=== PATIENT | female | born 1970 | race Caucasian/White ===

== ENCOUNTER 2017-06-26 14:25 | Inpatient (IN) | payer BC, MEDICARE ==
[2017-06-26] MEDS ORDERED: NS 0.9% 1000 ML* 1,000 ML IV ONE (15:16)
[2017-06-26] MEDS ORDERED: Aspirin Low Dose CHEW TAB* 81 MG PO ONE (15:16)
[2017-06-26] MEDS ORDERED: Ondansetron INJ* 2 MG/ML VIAL IV ONE (15:16)
--- NOTE | 2017-06-26 16:39 | RAD ---
Indication: Chest pain. 2 views of the chest including dual energy PA views demonstrate no mediastinal shift. Heart is of normal size and configuration. Lung carlton demonstrate no pleural fluid, pneumonia or pneumothorax. IMPRESSION: No active cardiopulmonary disease is noted.
[2017-06-26 17:57] LABS: Hematocrit 39 % (35-47); Hemoglobin 13.1 g/dl (12.0-16.0); Mean Corpuscular HGB Conc 34 g/dl (31-36); Mean Corpuscular Hemoglobin 29 pg (27-31); Mean Corpuscular Volume 85 fL (80-97); Mean Platelet Volume 9 um3 (7.4-10.4); Red Blood Count 4.56 10^6/ul (4.0-5.4); Red Cell Distribution Width 15 % (10.5-15); White Blood Count 15.9 10^3/ul (3.5-10.8)
[2017-06-26 18:10] LABS: Albumin 3.7 g/dL (3.2-5.2); BUN/Creatinine Ratio 10.2 (8-20); Calcium 9.4 mg/dL (8.6-10.3); EGFR African American 40.3 (>60); EGFR Non-African American 31.4 (>60); Globulin 4.8 g/dL (2-4); Magnesium 1.3 mg/dL (1.9-2.7); Potassium 3.1 mmol/L (3.5-5.0); Total Bilirubin 0.6 mg/dL (0.2-1.0); Total Protein 8.5 g/dL (6.4-8.9)
[2017-06-26 18:11] LABS: Troponin I 0.02 ng/mL (<0.04)
[2017-06-26 18:31] LABS: TSH (Thyroid Stimulating Horm) 0.99 mcIU/mL (0.34-5.60)
[2017-06-26] MEDS ORDERED: Magnesium Sulfate 1 GM IV* 1 GM/100 ML BAG IV ONE (18:46)
[2017-06-26] MEDS ORDERED: Potassium Chloride LIQUID* 20 MEQ PACKET PO ONE (18:46)
--- NOTE | 2017-06-26 21:38 | ED ---
Madelaine Hyde Thomas, scribed for Ridge Gurrola on 06/26/17 at 1912 . Progress - Progress Note Progress Note: The patient is a sign out from Dr. Black at shift change pending a second troponin and awaiting disposition. The second troponin is 0.02. I consulted with Dr. Mcdowell, hospitalist, who will admit the patient to [facility]. Re-Evaluation - Re-Evaluation First Eval Re-Evaluation Time: 21:09 Change: Unchanged Comment: She is still complaining of chest pain. Course/Dx - Diagnoses Provider Diagnoses: Chest pain, rule out PA, Hyponatremia, Leukocytosis, Hypokalemia - Provider Notifications Discussed Care Of Patient With: Olena Mcdowell Time Discussed With Above Provider: 21:10 Instructed by Provider To: Other - I consulted with Dr. Mcdowell, hospitalist, who will admit the patient to [facility]. The documentation as recorded by the Madelaine jha Thomas accurately reflects the service I personally performed and the decisions made by , Ridge Gurrola.
[2017-06-26 21:57] LABS: C Reactive Protein 4.89 mg/L (< 5.00)
[2017-06-26] MEDS ORDERED: Ondansetron INJ* 2 MG/ML VIAL IV PRN (21:59)
[2017-06-26] MEDS ORDERED: PROCHLORPERAZINE INJ 5 MG/ML 2 ML VIAL IV PRN (21:59)
[2017-06-26] MEDS ORDERED: Magnesium Sulfate 2 GM IV* 2 GM/50 ML BAG IVPB ONE (22:02)
[2017-06-26] MEDS ORDERED: ALPRAZolam TAB* 0.5 MG PO PRN (22:03)
[2017-06-26] MEDS ORDERED: busPIRone TAB* 5 MG PO PRN (22:03)
[2017-06-26] MEDS ORDERED: Zolpidem TAB* 10 MG PO PRN (22:04)
[2017-06-26] MEDS ORDERED: KCL 20 MEQ/100 ML IVPREMIX* 20 MEQ/100 ML BAG IV SCH (23:00)
[2017-06-26] MEDS: NS 0.9% 1000 ML* 1,000 ML IV SCH (23:34)
[2017-06-26] MEDS: Heparin VIAL(*) 5000 UNITS/ML VIAL (FIVE THOUSAND) SUBCUT SCH (23:38)
[2017-06-26] MEDS: HYDROmorphone INJ* 2 MG/ML CARPUJECT SYRINGE IV SLOW PU PRN (23:40)
--- NOTE | 2017-06-27 02:31 | HP ---
CC: Joshua Silver MD* HISTORY AND PHYSICAL: DATE OF ADMISSION: 06/26/17 PRIMARY CARE PROVIDER: Joshua Silver MD CHIEF COMPLAINT: Chest pain. HISTORY OF PRESENT ILLNESS: Ms. Key is a 46-year-old female with history of Crohn's disease, status post total colectomy and ileostomy placement, chronic pain, anxiety/depression and a history of DVT/PE, who presented to the emergency room, complains of chest pain. The patient states that beginning a couple of days ago, she felt like she was developing a chest cold. She developed tightness in her chest as well as shortness of breath. She then began to eat poorly due to the onset of abdominal pain, nausea, and vomiting. The patient has not been able to keep anything down per her report. The patient states that she feels like she is dehydrated. She states that in addition to these complaints when she stood up, she felt dizzy. She does complain of slight cough and mucus production, but otherwise no focal complaints. She states her ileostomy is working normally. PAST MEDICAL HISTORY: 1. Crohn's disease, status post colectomy with ileostomy. 2. Chronic low back pain. 3. Anxiety. 4. History of DVT/PE. PAST SURGICAL HISTORY: 1. Seven abdominal surgeries for Crohn's disease culminating in a total colectomy with ileostomy creation. 2. Left oophorectomy. ALLERGIES: 1. TYLENOL. 2. BENZOCAINE. 3. FLEXERIL. 4. IODINATED CONTRAST MEDIUM. 5. MORPHINE. 6. PENICILLIN. 7. FENTANYL. 8. PATCHES. MEDICATIONS: 1. Methadone 10 mg/mL, 1 mL p.o. t.i.d. 2. Ambien 12.5 mg p.o. q.h.s. p.r.n. insomnia. 3. Prozac 40 mg p.o. daily. 4. Xanax 0.5 mg p.o. q.6 hours p.r.n. anxiety. 5. BuSpar 7.5 mg p.o. b.i.d. p.r.n. anxiety. FAMILY HISTORY: Mom is living, she is 64. She has a history of hyperlipidemia. Dad is living, he is 70, his health is unknown as the patient does not speak with him. SOCIAL HISTORY: The patient is an active smoker of approximately half pack per day. She has smoked off and on since the age of 17. She denies any alcohol use. She is disabled. She is . She has 1 child. Her , Satya is her healthcare proxy. REVIEW OF SYSTEMS: The patient denies any fevers or chills. She states her appetite has been poor over the last couple of days. She admits chest pain as above. No lower extremity edema. Mild cough as above. Shortness of breath as above. She admits to nausea, vomiting, and abdominal pain as above. No hematochezia. Her stool is always liquidy and it is in its usual consistency at this time. No hematuria. No dysuria. No focal weakness or sensory loss. No sudden changes in vision. No dysphagia. No joint pains or muscle pains out of the ordinary. No rashes. She does admit to anxiety and depression. PHYSICAL EXAMINATION GENERAL: The patient is a well-developed, very thin, middle-aged female, lying in the bed, in no acute distress. VITAL SIGNS: Blood pressure 107/88, pulse 81, respirations 18, temp 99.2, O2 sat 97% on room air. HEENT: Pupils are equal, they are round, they react to light. Extraocular muscles are intact. Oropharynx is clear. Oral mucosa is moist. There is no submandibular, cervical, or supraclavicular adenopathy. NECK: Thyroid is not enlarged. No thyroid nodules are noted. PULMONARY: Lungs are clear to auscultation bilaterally. CARDIAC: Normal S1, S2. Regular rate and rhythm. I do not appreciate any murmurs. There is no lower extremity edema. ABDOMEN: Bowel sounds are present. Abdomen is flat. There is an ileostomy on the right side of the abdomen that is filled with liquid stool and air. The patient begins to flinch to palpation just as I start to touch her abdomen and perhaps even before I touch her abdomen. MUSCULOSKELETAL: There is no cyanosis or clubbing of the digits, full active range of motion of all 4 extremities. SKIN: Warm and dry. There are no rashes. NEURO: Cranial nerves II through XII are grossly intact. Sensation is intact to light touch throughout. Strength is 5/5 and symmetric in both upper and lower extremities bilaterally. PSYCH: The patient is alert. She is oriented x3. Affect appears appropriate. DIAGNOSTIC STUDIES/LAB DATA: Sodium 128, potassium 3.1, chloride 95, CO2 21, BUN 18, creatinine 1.76. Glucose 100, lactic acid 1.0, calcium 9.4, magnesium 1.3. Bilirubin 0.6, AST 25, ALT 39, alk phos 132. CPK 14, CK-MB 2.5, troponin 0.02 x2. CRP 4.89. BNP 37. Albumin 3.7, TSH 0.99. WBC 15.9, hemoglobin 13.1, hematocrit 39, platelets 532. Procalcitonin 0.2. EKG reveals normal sinus rhythm without any acute ST-T wave abnormalities, though she does appear to have a slightly prolonged QT interval. Chest x-ray, no acute pulmonary process. ASSESSMENT AND PLAN: Ms. Key is a 46-year-old female with history of Crohn' s disease, status post total colectomy and ileostomy creation, chronic pain, on chronic methadone and anxiety, who presents to the emergency room with complaints of chest pain, shortness of breath, abdominal pain, nausea, and vomiting. 1. Chest pain. I do not believe this is cardiac in nature. The patient has been having this pain almost continuously over the last 2 days. Her troponins are negative. I do not think she needs any further cardiac workup at this time. Of note, she did have cardiac catheterization in 2003 where "normal coronary arteries were identified." 2. Abdominal pain, nausea, and vomiting. The etiology of this is not clear. The patient has been admitted multiple times in the past for complaints of abdominal pain. Sometimes, she has been found to have partial obstruction, other times no clear cause has been identified. The patient will be observed overnight given her leukocytosis and elevated platelet count that may be reactive and what appears to be mild dehydration. The patient will receive normal saline at 100 mL per hour overnight. She has received potassium supplementation in the ER and a small amount of magnesium supplementation. I will give her additional IV magnesium. The patient's abdominal pain will be monitored. I will continue on her usual dose of methadone and we will add IV Dilaudid p.r.n. She will have Compazine available for nausea. I am going to hold off on Zofran given her prolonged QR interval. The patient will be on a clear liquid diet, which hopefully can be advanced tomorrow morning. I will go ahead and also send off an influenza swab and obtain abdominal x-rays to rule out partial obstruction. 2. Anxiety/depression. The patient will be maintained on her usual doses of Xanax and Prozac and BuSpar. 3. DVT prophylaxis. According to the Adult Thrombosis Prophylaxis Risk Factor Assessment Guide, the patient has a total risk factor score of 4, making her high risk. She will be placed on heparin 5000 units subcutaneous q.8 hours. 4. Code status is full and again the patient indicates that her is her healthcare proxy. [id number]/[facility] #: [id number] WILLIAM
[2017-06-27 02:42] LABS: Urine Bacteria 2+ (Absent); Urine Bilirubin Negative (Negative); Urine Glucose Negative (Negative); Urine Nitrite Negative (Negative)
[2017-06-27] MEDS: HYDROmorphone INJ* 2 MG/ML CARPUJECT SYRINGE IV SLOW PU PRN ×5 (03:28→22:06)
[2017-06-27] MEDS: Heparin VIAL(*) 5000 UNITS/ML VIAL (FIVE THOUSAND) SUBCUT SCH ×3 (06:07→20:43)
[2017-06-27 06:41] LABS: Hematocrit 35 % (35-47); Hemoglobin 11.9 g/dl (12.0-16.0); Mean Corpuscular HGB Conc 34 g/dl (31-36); Mean Corpuscular Hemoglobin 29 pg (27-31); Mean Corpuscular Volume 86 fL (80-97); Mean Platelet Volume 8 um3 (7.4-10.4); Red Cell Distribution Width 15 % (10.5-15); White Blood Count 9.1 10^3/ul (3.5-10.8)
[2017-06-27 07:25] LABS: BUN/Creatinine Ratio 11.3 (8-20); Calcium 8.6 mg/dL (8.6-10.3); EGFR African American 51.7 (>60); EGFR Non-African American 40.2 (>60); Potassium 3.4 mmol/L (3.5-5.0)
--- NOTE | 2017-06-27 07:43 | RAD ---
INDICATION: Partial small bowel obstruction. COMPARISON: Comparison is made with a prior exam from December 29, 2015. TECHNIQUE: Supine and upright views of the abdomen were obtained. FINDINGS: The small bowel and colon appear nondistended. No free intraperitoneal air is seen. There are several surgical clips which project in the left lower quadrant and overlying the pelvis. IMPRESSION: NO EVIDENCE FOR OBSTRUCTION.
[2017-06-27] MEDS: Methadone TAB* 10 MG PO SCH ×3 (08:30→20:42)
[2017-06-27] MEDS: FLUoxetine CAP* 20 MG PO SCH (08:31)
[2017-06-27] MEDS: NS 0.9% 1000 ML* 1,000 ML IV SCH (15:12)
--- NOTE | 2017-06-27 16:28 | RAD ---
Indication: Weight loss, Crohn's disease. CT of the chest, abdomen and pelvis was performed without oral or IV contrast administration. Coronal and sagittal reconstructed images were obtained. Inferior thyroid lobes are unremarkable. No mediastinal or hilar adenopathy is noted. Heart is of normal size without evidence of pericardial effusion. The trachea and major bronchi appear patent. Lung carlton demonstrate no pleural fluid, pneumonia or pneumothorax. No pulmonary nodules are identified. The axilla is grossly unremarkable. The bony structures are grossly unremarkable with some endplate sclerosis. CT of the abdomen and pelvis demonstrates the liver to be normal in size. No focal lesions or intrahepatic duct dilatation is noted. The patient appears to have a transverse colostomy. Pancreas demonstrates no mass or pancreatic duct dilatation. The gallbladder is partially contracted. The spleen is normal in size. Calcified granulomas are noted. No adrenal lesions are noted. The kidneys demonstrate no hydronephrosis. No retroperitoneal lymphadenopathy is noted. CT of the pelvis demonstrates question of right adnexal cyst. Urinary bladder is collapsed. No hernias are noted. No free fluid is identified. IMPRESSION: 1. Transverse colon colostomy. 2. No abnormal masses or fluid collections are otherwise noted. There may be a right ovarian cyst noted measuring up to 4 cm. Follow-up exam is suggested. 3. No pulmonary lesions are identified.
--- NOTE | 2017-06-27 17:51 | PN ---
Subjective Date of Service: 06/27/17 Interval History: still with crampy abdominal pain, poor appetite for both lunch and dinner today (though ate some pasta). No vomiting. Attests to 60lb weight loss (unintentional ) over last year. CT C/A/P Objective Active Medications: Alprazolam (Xanax Tab*) 0.5 mg PO Q6H PRN PRN Reason: ANXIETY Buspirone HCl (Buspar Tab*) 7.5 mg PO BID PRN PRN Reason: ANXIETY Fluoxetine HCl (Prozac Cap*) 40 mg PO DAILY [facility] Last Admin: 06/27/17 08:31 Dose: 40 mg Heparin Sodium (Porcine) (Heparin Vial(*)) 5,000 units SUBCUT Q8HR [facility] Last Admin: 06/27/17 15:12 Dose: 5,000 units Hydromorphone HCl (Dilaudid Inj*) 0.5 mg IV SLOW PU Q4H PRN PRN Reason: PAIN Last Admin: 06/27/17 17:14 Dose: 0.5 mg Sodium Chloride (Ns 0.9% 1000 Ml*) 1,000 mls @ 100 mls/hr IV PER RATE [facility] Last Admin: 06/27/17 15:12 Dose: 100 mls/hr Methadone HCl (Dolophine Tab*) 10 mg PO TID [facility] Last Admin: 06/27/17 15:11 Dose: 10 mg Prochlorperazine Edisylate (Compazine Inj*) 5 mg IV Q6H PRN PRN Reason: NAUSEA/VOMITING Zolpidem Tartrate (Ambien Tab*) 10 mg PO BEDTIME PRN PRN Reason: INSOMNIA Vital Signs 06/27/17 06/27/17 17:11 17:14 Respiratory 18 16 Rate Appearance: malnourished appearing, NAD Eyes: No Scleral Icterus, PERRLA Ears/Nose/Mouth/Throat: Clear Oropharnyx, - - poor dentition Neck: NL Appearance and Movements; NL JVP Respiratory: Clear to Auscultation, Clear to Percussion Cardiovascular: NL Sounds; No Murmurs; No JVD, RRR, No Edema Abdominal: - - slight diffuse tenderness; ostomy with green liquid stool + gas. No peritoneal signs. soft Lymphatic: No Cervical Adenopathy Extremities: No Edema, No Clubbing, Cyanosis Skin: No Rash or Ulcers Neurological: Alert and Oriented x 3, NL Sensation, NL Muscle Strength and Tone Nutrition: Taking PO's Result Diagrams: 06/27/17 06:06 06/27/17 06:06 Additional Lab and Data: Laboratory Results - last 24 hr 06/26/17 06/26/17 06/26/17 17:25 17:25 23:57 WBC RBC Hgb Hct MCV MCH MCHC RDW Plt Count MPV Sodium 128 L Potassium 3.1 L Chloride 95 L Carbon Dioxide 21 L Anion Gap 12 H BUN 18 Creatinine 1.76 H Est GFR ( Amer) 40.3 Est GFR (Non-Af Amer) 31.4 BUN/Creatinine Ratio 10.2 Glucose 100 Calcium 9.4 Magnesium 1.3 L Total Bilirubin 0.60 AST 25 ALT 39 Alkaline Phosphatase 132 H Total Creatine Kinase 14 CK-MB (CK-2) 2.5 Troponin I 0.02 C-Reactive Protein 4.89 Total Protein 8.5 Albumin 3.7 Globulin 4.8 H Albumin/Globulin Ratio 0.8 L Procalcitonin 0.2 TSH 0.99 Urine Color Urine Appearance Urine pH Ur Specific [place] Urine Protein Urine Ketones Urine Blood Urine Nitrate Urine Bilirubin Urine Urobilinogen Ur Leukocyte Esterase Urine WBC (Auto) Urine RBC (Auto) Ur Squamous Epith Cells Urine Bacteria Hyaline Casts Urine Glucose Influenza A (Rapid) Negative Influenza B (Rapid) Negative 06/27/17 06/27/17 06/27/17 02:15 06:06 06:06 WBC 9.1 RBC 4.10 Hgb 11.9 L Hct 35 MCV 86 MCH 29 MCHC 34 RDW 15 Plt Count 367 MPV 8 Sodium 125 L Potassium 3.4 L Chloride 98 L Carbon Dioxide 19 L Anion Gap 8 BUN 16 Creatinine 1.42 H Est GFR ( Amer) 51.7 Est GFR (Non-Af Amer) 40.2 BUN/Creatinine Ratio 11.3 Glucose 133 H Calcium 8.6 Magnesium Total Bilirubin AST ALT Alkaline Phosphatase Total Creatine Kinase CK-MB (CK-2) Troponin I C-Reactive Protein Total Protein Albumin Globulin Albumin/Globulin Ratio Procalcitonin TSH Urine Color Yellow Urine Appearance Cloudy Urine pH 6.0 Ur Specific [place] 1.006 L Urine Protein Negative Urine Ketones Negative Urine Blood 1+ H Urine Nitrate Negative Urine Bilirubin Negative Urine Urobilinogen Negative Ur Leukocyte Esterase 3+ H Urine WBC (Auto) 3+(>20/hpf) H Urine RBC (Auto) 2+(6-10/hpf) H Ur Squamous Epith Cells Present H Urine Bacteria 2+ H Hyaline Casts Present H Urine Glucose Negative Influenza A (Rapid) Influenza B (Rapid) Microbiology and Other Data: Microbiology 06/26/17 17:25 Blood Venous Aerobic Blood Culture - Preliminary No Growth Day 1 06/26/17 17:25 Blood Venous Anaerobic Blood Culture - Preliminary No Growth Day 1 06/26/17 23:45 Nasal Nasal Screen MRSA (PCR)(SERGEY) - Final Mrsa Negative 06/26/17 23:45 Nasal Influenza Types A,B Antigen (SERGEY) - Final Specimen received for Influenza A/B Molecular testing Assess/Plan/Problems-Billing Assessment: 46 yo female chron's s/p 7 surgeries (total colectomy, ileostomy); chronic pain , anxiety, depression, and 60lb unintentional weight loss over 1 year p/w abdominal pain, dizziness, chest pressure x 2 days. ACS ruled out. Hyponatremic and improving CHASTITY. - Patient Problems (1) Weight loss Current Visit: Yes Status: Acute Comment: 60 lb unintentional in [address] chest/abdomen/pelvis w/o e/o masses or lymphadenopathy. w/o contrast given CHASTITY. f/u with Dr. Álvarez GI as outpatient for colo or flex sig. ?PET to evaluate for malignancy current smoker (1/2 pack average over ~15 years (off on since age 17) (2) Crohns disease of small intestine Current Visit: No Status: Chronic Priority: Low Onset Date: 05/15/14 Code(s): K50.00 - CROHN'S DISEASE OF SMALL INTESTINE WITHOUT COMPLICATIONS SNOMED Code(s): 71509283 Comment: not clearly an acute flair. (3) Abdominal pain Current Visit: No Status: Acute Priority: High Code(s): R10.9 - UNSPECIFIED ABDOMINAL PAIN SNOMED Code(s): 75366104 Comment: partial sbo (no e/o on imaging) vs ovarian cyst vs chron's flare. CT c/a/p w/o masses or fluid collections add lipase (4) Acute kidney failure Current Visit: No Status: Acute Comment: in setting of N/V, dehydration improved with IVF. GLOVE BRUSHER 1.76-> 1.42 (baseline ~1.1) (5) Chronic abdominal pain Current Visit: No Status: Acute Code(s): R10.9 - UNSPECIFIED ABDOMINAL PAIN ; G89.29 - OTHER CHRONIC PAIN SNOMED Code(s): 968951228 Comment: continue methadone 10mg TID along with dilaudid 0.5mg q4 had beeon on 90 back in 2016. (6) Leukocytosis Current Visit: No Status: Acute Code(s): D72.829 - ELEVATED WHITE BLOOD CELL COUNT, UNSPECIFIED SNOMED Code(s): 858296131 Comment: improved (7) Right ovarian cyst Current Visit: Yes Status: Acute Code(s): N83.201 - UNSPECIFIED OVARIAN CYST , RIGHT SIDE SNOMED Code(s): 90347035 Comment: seemingly stable size (8) Hyponatremia Current Visit: Yes Status: Acute Code(s): E87.1 - HYPO-OSMOLALITY AND HYPONATREMIA SNOMED Code(s): 26257815 Comment: 128-> 125 with IVF. hypovolemic on exam BMP daily. Status and Disposition: medicine inpatient. Attending: Rao Valerio
[2017-06-28] MEDS: HYDROmorphone INJ* 2 MG/ML CARPUJECT SYRINGE IV SLOW PU PRN ×4 (03:22→20:28)
[2017-06-28] MEDS: NS 0.9% 1000 ML* 1,000 ML IV SCH (03:58)
[2017-06-28] MEDS: Heparin VIAL(*) 5000 UNITS/ML VIAL (FIVE THOUSAND) SUBCUT SCH ×3 (07:12→21:58)
--- NOTE | 2017-06-28 08:23 | ED ---
Arash Hyde Angela, scribed for Bryant Black MD on 06/26/17 at 1509 . HPI Chest Pain - HPI Summary HPI Summary: This pt is a 46 y/o female presenting to [facility] c/o mid sternal chest pain, SOB, ,cough for a couple of days. Pt reports her pain is non-radiating and is described as pressure. Her chest pain is rated 8/10 in severity. She states she can't get enough air in and has to sit down because she feels like passing out. Pt endorses a fever (max of 100F), dehydration, and vomiting. She also notes back pain secondary to cough. PMHx: pneumonia, crohn's disease. She states that all her symptoms are aggravating her Crohn's. Pt's GI doctor is Dr. Álvarez. She denies any recent surgeries. - History of Current Complaint Chief Complaint: EDChestPainROMI Time Seen by Provider: 06/26/17 15:05 Hx Obtained From: Patient Onset/Duration: Started Days Ago, Still Present Timing: Lasting Days Pain Intensity: 6 Pain Scale Used: 0-10 Numeric Chest Pain Location: Mid Sternal Chest Pain Radiates: No Character: Pressure/Squeezing Aggravating Factor(s): Nothing Alleviating Factor(s): Nothing Associated Signs and Symptoms: Positive: Chest Pain, Shortness of Breath, Cough , Vomiting, Other: - dehydration - Additional Pertinent History Primary Care Physician: [id number] - Allergy/Home Medications Allergies/Adverse Reactions: Allergies Allergy/AdvReac Type Severity Reaction Status Date / Time Acetaminophen Allergy Severe Airway Verified 09/13/14 03:37 Obstruction Benzocaine Allergy Severe Anaphylatic Verified 09/13/14 03:37 Shock Cyclobenzaprine Allergy Intermediate Rash Verified 09/13/14 03:37 [From Flexeril] Iodinated Contrast Media Allergy Intermediate Rash Verified 09/13/14 03:37 [CONTRAST DYE] Morphine and Related Allergy Intermediate Rash Verified 09/13/14 03:37 Penicillins [PCN] Allergy Intermediate Hives Verified 09/13/14 03:37 Fentanyl Allergy Hives Verified 11/03/15 20:00 patches Allergy Intermediate Rash Uncoded 09/13/14 03:37 PMH/Surg Hx/FS Hx/Imm Hx Endocrine/Hematology History: Reports: Hx Blood Transfusions, Hx Anemia Cardiovascular History: Reports: Hx Deep Vein Thrombosis, Hx Embolism, Hx Hypotension, Other Cardiovascular Problems/Disorders - Pericarditis Respiratory History: Reports: Hx Pulmonary Embolism Comment Only: Other Respiratory Problems/Disorders - HX OF PE X2 GI History: Reports: Hx Crohn's Disease, Hx Obstructive Bowel, Hx Ileostomy - Ileostomy History: Reports: Hx Kidney Infection, Hx Kidney Stones Musculoskeletal History: Reports: Hx Back Problems - sciatic nerve issues Psychiatric History: Reports: Hx Anxiety - Controlled w meds, Hx Depression - "long time ago", Hx Suicide Attempt - once - Cancer History Hx Chemotherapy: No - Surgical History Surgery Procedure, Year, and Place: LEFT OOPHORECTOMY 2006. CHOLECYSTECTOMY. APPENDECTOMY. TOTAL COLECTOMY with LUQ ILEOSTOMY 2001. CROHNS SURGERY- multiple abd surgeries (prior to 2001) Hx Anesthesia Reactions: No - Immunization History Date of Tetanus Vaccine: Unknown Infectious Disease History: No Infectious Disease History: Reports: Hx Clostridium Difficile, Hx of Known/ Suspected MRSA Denies: Hx Hepatitis, Hx Human Immunodeficiency Virus (HIV), Traveled Outside the [place] in Last 30 Days - Family History Known Family History: Positive: Cardiac Disease - maternal grandmother, Diabetes - father, uncle, maternal grandmother , Other - Grandparents: [place] - Social History Alcohol Use: None Hx Substance Use: No Substance Use Type: Reports: None Hx Tobacco Use: Yes Smoking Status (MU): Light Every Day Tobacco Smoker Type: Cigarettes Amount Used/How Often: 1/2ppd Review of Systems Positive: Fever, Other - dehydration. Negative: Chills Eyes: Negative Positive: Chest Pain Positive: Shortness Of Breath, Cough Positive: Vomiting. Negative: Abdominal Pain Genitourinary: Negative Positive: Other - back pain secondary to cough Skin: Negative Neurological: Other - feel like passing out All Other Systems Reviewed And Are Negative: Yes Physical Exam - Summary Physical Exam Summary: VITAL SIGNS: Reviewed. GENERAL: Patient is a cachectic female. Patient is not in any acute respiratory distress. HEAD AND FACE: No signs of trauma. No ecchymosis, hematomas or skull depressions. No sinus tenderness. EYES: PERRLA, EOMI x 2, No injected conjunctiva, no nystagmus. EARS: Hearing grossly intact. Ear canals and tympanic membranes are within normal limits. MOUTH: Oropharynx within normal limits. NECK: Supple, trachea is midline, no adenopathy, no JVD, no carotid bruit, no c- spine tenderness, neck with full ROM. CHEST: There is reproducible chest pain. LUNGS: Clear to auscultation bilaterally. No wheezing or crackles. CVS: Regular rate and rhythm, S1 and S2 present, no murmurs or gallops appreciated. ABDOMEN: Soft, non-tender. No signs of distention. No rebound no guarding, and no masses palpated. Bowel sounds are normal. Pt has a colostomy bag in lower abd. EXTREMITIES: FROM in all major joints, no edema, no cyanosis or clubbing. NEURO: Alert and oriented x 3. No acute neurological deficits. Speech is normal and follows commands. SKIN: Dry and warm Triage Information Reviewed: Yes Vital Signs On Initial Exam: Initial Vitals Temp Pulse Resp BP Pulse Ox 99.2 F 113 20 106/78 100 06/26/17 14:26 06/26/17 14:26 06/26/17 14:26 06/26/17 14:26 06/26/17 14:26 Vital Signs Reviewed: Yes - [place] Coma Scale Coma Scale Total: 15 Diagnostics - Vital Signs Vital Signs Temp Pulse Resp BP Pulse Ox 06/26/17 15:00 22 06/26/17 14:54 96 17 101/72 97 06/26/17 14:52 96 97 06/26/17 14:26 99.2 F 113 20 106/78 100 - Laboratory Lab Results: Lab Results 06/26/17 06/26/17 06/26/17 Range/Units 17:25 17:25 17:25 WBC 15.9 H (3.5-10.8) 10^3/ul RBC 4.56 (4.0-5.4) 10^6/ul Hgb 13.1 (12.0-16.0) g/dl Hct 39 (35-47) % MCV 85 (80-97) fL MCH 29 (27-31) pg MCHC 34 (31-36) g/dl RDW 15 (10.5-15) % Plt Count 532 H (150-450) 10^3/ul MPV 9 (7.4-10.4) um3 Neut % (Auto) 83.2 H (38-83) % Lymph % (Auto) 9.0 L (25-47) % [place] % (Auto) 5.3 (1-9) % Eos % (Auto) 2.1 (0-6) % Baso % (Auto) 0.4 (0-2) % Absolute Neuts (auto) 13.2 H (1.5-7.7) 10^3/ul Absolute Lymphs (auto) 1.4 (1.0-4.8) 10^3/ul Absolute Monos (auto) 0.8 (0-0.8) 10^3/ul Absolute Eos (auto) 0.3 (0-0.6) 10^3/ul Absolute Basos (auto) 0.1 (0-0.2) 10^3/ul Absolute Nucleated RBC 0 10^3/ul Nucleated RBC % 0 Sodium 128 L (133-145) mmol/L Potassium 3.1 L (3.5-5.0) mmol/L Chloride 95 L (101-111) mmol/L Carbon Dioxide 21 L (22-32) mmol/L Anion Gap 12 H (2-11) mmol/L BUN 18 (6-24) mg/dL Creatinine 1.76 H (0.51-0.95) mg/dL Est GFR ( Amer) 40.3 (>60) Est GFR (Non-Af Amer) 31.4 (>60) BUN/Creatinine Ratio 10.2 (8-20) Glucose 100 (70-100) mg/dL Lactic Acid (0.5-2.0) mmol/L Calcium 9.4 (8.6-10.3) mg/dL Magnesium 1.3 L (1.9-2.7) mg/dL Total Bilirubin 0.60 (0.2-1.0) mg/dL AST 25 (13-39) U/L ALT 39 (7-52) U/L Alkaline Phosphatase 132 H (34-104) U/L Total Creatine Kinase 14 (10-223) U/L CK-MB (CK-2) 2.5 (0.6-6.3) ng/mL Troponin I 0.02 (<0.04) ng/mL C-Reactive Protein 4.89 (< 5.00) mg/L B-Natriuretic Peptide 37 ( - 100) pg/mL Total Protein 8.5 (6.4-8.9) g/dL Albumin 3.7 (3.2-5.2) g/dL Globulin 4.8 H (2-4) g/dL Albumin/Globulin Ratio 0.8 L (1-3) Procalcitonin (<0.6) ng/mL TSH 0.99 (0.34-5.60) mcIU/mL Urine Color Urine Appearance Urine pH (5-9) Ur Specific [place] (1.010-1.030) Urine Protein (Negative) Urine Ketones (Negative) Urine Blood (Negative) Urine Nitrate (Negative) Urine Bilirubin (Negative) Urine Urobilinogen (Negative) Ur Leukocyte Esterase (Negative) Urine WBC (Auto) (Absent) Urine RBC (Auto) (Absent) Ur Squamous Epith Cells (Absent) Urine Bacteria (Absent) Hyaline Casts (Absent) Urine Glucose (Negative) Influenza A (Rapid) (Negative) Influenza B (Rapid) (Negative) 06/26/17 06/26/17 06/26/17 Range/Units 17:25 17:25 20:00 WBC (3.5-10.8) 10^3/ul RBC (4.0-5.4) 10^6/ul Hgb (12.0-16.0) g/dl Hct (35-47) % MCV (80-97) fL MCH (27-31) pg MCHC (31-36) g/dl RDW (10.5-15) % Plt Count (150-450) 10^3/ul MPV (7.4-10.4) um3 Neut % (Auto) (38-83) % Lymph % (Auto) (25-47) % [place] % (Auto) (1-9) % Eos % (Auto) (0-6) % Baso % (Auto) (0-2) % Absolute Neuts (auto) (1.5-7.7) 10^3/ul Absolute Lymphs (auto) (1.0-4.8) 10^3/ul Absolute Monos (auto) (0-0.8) 10^3/ul Absolute Eos (auto) (0-0.6) 10^3/ul Absolute Basos (auto) (0-0.2) 10^3/ul Absolute Nucleated RBC 10^3/ul Nucleated RBC % Sodium (133-145) mmol/L Potassium (3.5-5.0) mmol/L Chloride (101-111) mmol/L Carbon Dioxide (22-32) mmol/L Anion Gap (2-11) mmol/L BUN (6-24) mg/dL Creatinine (0.51-0.95) mg/dL Est GFR ( Amer) (>60) Est GFR (Non-Af Amer) (>60) BUN/Creatinine Ratio (8-20) Glucose (70-100) mg/dL Lactic Acid 1.0 (0.5-2.0) mmol/L Calcium (8.6-10.3) mg/dL Magnesium (1.9-2.7) mg/dL Total Bilirubin (0.2-1.0) mg/dL AST (13-39) U/L ALT (7-52) U/L Alkaline Phosphatase (34-104) U/L Total Creatine Kinase (10-223) U/L CK-MB (CK-2) (0.6-6.3) ng/mL Troponin I 0.02 (<0.04) ng/mL C-Reactive Protein (< 5.00) mg/L B-Natriuretic Peptide ( - 100) pg/mL Total Protein (6.4-8.9) g/dL Albumin (3.2-5.2) g/dL Globulin (2-4) g/dL Albumin/Globulin Ratio (1-3) Procalcitonin 0.2 (<0.6) ng/mL TSH (0.34-5.60) mcIU/mL Urine Color Urine Appearance Urine pH (5-9) Ur Specific [place] (1.010-1.030) Urine Protein (Negative) Urine Ketones (Negative) Urine Blood (Negative) Urine Nitrate (Negative) Urine Bilirubin (Negative) Urine Urobilinogen (Negative) Ur Leukocyte Esterase (Negative) Urine WBC (Auto) (Absent) Urine RBC (Auto) (Absent) Ur Squamous Epith Cells (Absent) Urine Bacteria (Absent) Hyaline Casts (Absent) Urine Glucose (Negative) Influenza A (Rapid) (Negative) Influenza B (Rapid) (Negative) 06/26/17 06/27/17 06/27/17 Range/Units 23:57 02:15 06:06 WBC 9.1 (3.5-10.8) 10^3/ul RBC 4.10 (4.0-5.4) 10^6/ul Hgb 11.9 L (12.0-16.0) g/dl Hct 35 (35-47) % MCV 86 (80-97) fL MCH 29 (27-31) pg MCHC 34 (31-36) g/dl RDW 15 (10.5-15) % Plt Count 367 (150-450) 10^3/ul MPV 8 (7.4-10.4) um3 Neut % (Auto) (38-83) % Lymph % (Auto) (25-47) % [place] % (Auto) (1-9) % Eos % (Auto) (0-6) % Baso % (Auto) (0-2) % Absolute Neuts (auto) (1.5-7.7) 10^3/ul Absolute Lymphs (auto) (1.0-4.8) 10^3/ul Absolute Monos (auto) (0-0.8) 10^3/ul Absolute Eos (auto) (0-0.6) 10^3/ul Absolute Basos (auto) (0-0.2) 10^3/ul Absolute Nucleated RBC 10^3/ul Nucleated RBC % Sodium (133-145) mmol/L Potassium (3.5-5.0) mmol/L Chloride (101-111) mmol/L Carbon Dioxide (22-32) mmol/L Anion Gap (2-11) mmol/L BUN (6-24) mg/dL Creatinine (0.51-0.95) mg/dL Est GFR ( Amer) (>60) Est GFR (Non-Af Amer) (>60) BUN/Creatinine Ratio (8-20) Glucose (70-100) mg/dL Lactic Acid (0.5-2.0) mmol/L Calcium (8.6-10.3) mg/dL Magnesium (1.9-2.7) mg/dL Total Bilirubin (0.2-1.0) mg/dL AST (13-39) U/L ALT (7-52) U/L Alkaline Phosphatase (34-104) U/L Total Creatine Kinase (10-223) U/L CK-MB (CK-2) (0.6-6.3) ng/mL Troponin I (<0.04) ng/mL C-Reactive Protein (< 5.00) mg/L B-Natriuretic Peptide ( - 100) pg/mL Total Protein (6.4-8.9) g/dL Albumin (3.2-5.2) g/dL Globulin (2-4) g/dL Albumin/Globulin Ratio (1-3) Procalcitonin (<0.6) ng/mL TSH (0.34-5.60) mcIU/mL Urine Color Yellow Urine Appearance Cloudy Urine pH 6.0 (5-9) Ur Specific [place] 1.006 L (1.010-1.030) Urine Protein Negative (Negative) Urine Ketones Negative (Negative) Urine Blood 1+ H (Negative) Urine Nitrate Negative (Negative) Urine Bilirubin Negative (Negative) Urine Urobilinogen Negative (Negative) Ur Leukocyte Esterase 3+ H (Negative) Urine WBC (Auto) 3+(>20/hpf) H (Absent) Urine RBC (Auto) 2+(6-10/hpf) H (Absent) Ur Squamous Epith Cells Present H (Absent) Urine Bacteria 2+ H (Absent) Hyaline Casts Present H (Absent) Urine Glucose Negative (Negative) Influenza A (Rapid) Negative (Negative) Influenza B (Rapid) Negative (Negative) 06/27/17 Range/Units 06:06 WBC (3.5-10.8) 10^3/ul RBC (4.0-5.4) 10^6/ul Hgb (12.0-16.0) g/dl Hct (35-47) % MCV (80-97) fL MCH (27-31) pg MCHC (31-36) g/dl RDW (10.5-15) % Plt Count (150-450) 10^3/ul MPV (7.4-10.4) um3 Neut % (Auto) (38-83) % Lymph % (Auto) (25-47) % [place] % (Auto) (1-9) % Eos % (Auto) (0-6) % Baso % (Auto) (0-2) % Absolute Neuts (auto) (1.5-7.7) 10^3/ul Absolute Lymphs (auto) (1.0-4.8) 10^3/ul Absolute Monos (auto) (0-0.8) 10^3/ul Absolute Eos (auto) (0-0.6) 10^3/ul Absolute Basos (auto) (0-0.2) 10^3/ul Absolute Nucleated RBC 10^3/ul Nucleated RBC % Sodium 125 L (133-145) mmol/L Potassium 3.4 L (3.5-5.0) mmol/L Chloride 98 L (101-111) mmol/L Carbon Dioxide 19 L (22-32) mmol/L Anion Gap 8 (2-11) mmol/L BUN 16 (6-24) mg/dL Creatinine 1.42 H (0.51-0.95) mg/dL Est GFR ( Amer) 51.7 (>60) Est GFR (Non-Af Amer) 40.2 (>60) BUN/Creatinine Ratio 11.3 (8-20) Glucose 133 H (70-100) mg/dL Lactic Acid (0.5-2.0) mmol/L Calcium 8.6 (8.6-10.3) mg/dL Magnesium (1.9-2.7) mg/dL Total Bilirubin (0.2-1.0) mg/dL AST (13-39) U/L ALT (7-52) U/L Alkaline Phosphatase (34-104) U/L Total Creatine Kinase (10-223) U/L CK-MB (CK-2) (0.6-6.3) ng/mL Troponin I (<0.04) ng/mL C-Reactive Protein (< 5.00) mg/L B-Natriuretic Peptide ( - 100) pg/mL Total Protein (6.4-8.9) g/dL Albumin (3.2-5.2) g/dL Globulin (2-4) g/dL Albumin/Globulin Ratio (1-3) Procalcitonin (<0.6) ng/mL TSH (0.34-5.60) mcIU/mL Urine Color Urine Appearance Urine pH (5-9) Ur Specific [place] (1.010-1.030) Urine Protein (Negative) Urine Ketones (Negative) Urine Blood (Negative) Urine Nitrate (Negative) Urine Bilirubin (Negative) Urine Urobilinogen (Negative) Ur Leukocyte Esterase (Negative) Urine WBC (Auto) (Absent) Urine RBC (Auto) (Absent) Ur Squamous Epith Cells (Absent) Urine Bacteria (Absent) Hyaline Casts (Absent) Urine Glucose (Negative) Influenza A (Rapid) (Negative) Influenza B (Rapid) (Negative) Result Diagrams: 06/27/17 06:06 06/27/17 06:06 Lab Statement: Any lab studies that have been ordered have been reviewed, and results considered in the medical decision making process. - Radiology Chest XR Xray Interpretation: No Acute Changes - IMPRESSION: No active cardiopulmonary disease is noted. ED physician has reviewed this radiology report and agrees. Radiology Interpretation Completed By: Radiologist - EKG 1554 Cardiac Rate: NL - 98 bpm EKG Rhythm: Sinus Rhythm EKG Interpretation: No ST elevation Chest Pain Course/Dx - Course Assessment/Plan: This pt is a 46 y/o female presenting to [facility] c/o mid sternal chest pain, SOB, ,cough for a couple of days. Pt reports her pain is non- radiating and is described as pressure. Her chest pain is rated 8/10 in severity. She states she can't get enough air in and has to sit down because she feels like passing out. Pt endorses a fever (max of 100F), dehydration, and vomiting. She also notes back pain secondary to cough. PMHx: pneumonia, crohn' s disease. She states that all her symptoms are aggravating her Crohn's. Pt's GI doctor is Dr. Álvarez. She denies any recent surgeries. Test results show WBC of 15.9, platelet count of 532, sodium of 128, potassium of 3.1, for which she was given potassium chloride, magnesium of 1.3, for which she was given magnesium sulfate. Creatinine of 1.76. Troponin is 0.02. In the ED course, the pt refused nitroglycerin and aspirin. Instead, she is requesting dilaudid. The pt is waiting for the second troponin. If negative, the pt can be discharged home. The pt will be signed out to Dr. Gurrola at shift change, pending disposition, awaiting second troponin. - Chest Pain Differential Diagnosis/HQI/PQRI: ACS, Angina, CHF, Chest Wall, GI Disease, Lower Respiratory Infection - Diagnoses Provider Diagnoses: Chest pain, rule out MS, Hyponatremia, Leukocytosis, Hypokalemia Discharge - Discharge Plan Condition: Stable Disposition: OTHER Discharge Disposition Comment: signed out to Dr. Gurrola, pending dispo, awaiting 2nd troponin The documentation as recorded by the Arash jha Angela accurately reflects the service I personally performed and the decisions made by me, Bryant Black MD.
[2017-06-28] MEDS: Methadone TAB* 10 MG PO SCH ×3 (09:56→20:18)
[2017-06-28] MEDS: FLUoxetine CAP* 20 MG PO SCH (09:56)
[2017-06-28 10:47] LABS: Hematocrit 36 % (35-47); Hemoglobin 12.2 g/dl (12.0-16.0); Mean Corpuscular HGB Conc 34 g/dl (31-36); Mean Corpuscular Hemoglobin 30 pg (27-31); Mean Corpuscular Volume 88 fL (80-97); Mean Platelet Volume 8 um3 (7.4-10.4); Red Blood Count 4.12 10^6/ul (4.0-5.4); Red Cell Distribution Width 15 % (10.5-15); White Blood Count 7.4 10^3/ul (3.5-10.8)
[2017-06-28 11:48] LABS: BUN/Creatinine Ratio 8.7 (8-20); Blood Urea Nitrogen 10 mg/dL (6-24); CO2 Carbon Dioxide 16 mmol/L (22-32); Calcium 8.3 mg/dL (8.6-10.3); Chloride 107 mmol/L (101-111); EGFR African American 65.9 (>60); EGFR Non-African American 51.3 (>60); Glucose 123 mg/dL (70-100); Lipase 43 U/L (11.0-82.0); Magnesium 1.7 mg/dL (1.9-2.7); Sodium 133 mmol/L (133-145)
[2017-06-28] MEDS ORDERED: Magnesium Sulfate 2 GM IV* 2 GM/50 ML BAG IVPB ONE (12:32)
[2017-06-28 12:35] LABS: Anion Gap 10 mmol/L (2-11)
[2017-06-28] MEDS ORDERED: Vancomycin(*) 1,000 MG in NS 0.9% 250 ML* 250 ML IVPB ONE (13:00)
[2017-06-28] MEDS ORDERED: Vancomycin per Pharmacy* NOTE FOLLOW UP PRN (13:12)
--- NOTE | 2017-06-28 18:32 | PN ---
Subjective Date of Service: 06/28/17 Interval History: Pt right lower quadrant and epigastric abdominal pain and po intake not really improved. Relates referral occasionally to right flank. "Crampy, hot poker". Last EGD ~6 years ago, found "burn" near distal esophagus. was on prilosec 6 months. Last chron's flare ~1 year ago, got prednisone. Denies blood per ostomy. Relates that the tapering down of her methadone from 100mg daily 04/01, 60mg 05/02 , 30mg 06/02 happened when she saw a new provider and was put on the "wrong list " of chronic back pain patients and that Dr. Silver had planned to increase back to usual 90mg next week visit. Was on 90 back December 2015 during last admission here for pSBO vs ileus. Relates eventually got methylene blue after tylenol + sedation meds caused angioedema need for intubation. Had severe sepsis 2/2 abdominal infection [facility] several years ago. Has had UTIs in past. Last menstrual period 2 weeks ago, usually relates right sided ovarian cyst pain to be ghassan-bleeding. s/p dennis, niraj Objective Active Medications: Alprazolam (Xanax Tab*) 0.5 mg PO Q6H PRN PRN Reason: ANXIETY Buspirone HCl (Buspar Tab*) 7.5 mg PO BID PRN PRN Reason: ANXIETY Fluoxetine HCl (Prozac Cap*) 40 mg PO DAILY [facility] Last Admin: 06/28/17 09:56 Dose: 40 mg Heparin Sodium (Porcine) (Heparin Vial(*)) 5,000 units SUBCUT Q8HR [facility] Last Admin: 06/28/17 13:42 Dose: 5,000 units Hydromorphone HCl (Dilaudid Inj*) 0.5 mg IV SLOW PU Q4H PRN PRN Reason: PAIN Last Admin: 06/28/17 14:05 Dose: 0.5 mg Vancomycin HCl 750 mg/ Sodium (Chloride) 250 mls @ 166.667 mls/hr IVPB Q12H [facility] Methadone HCl (Dolophine Tab*) 10 mg PO TID [facility] Last Admin: 06/28/17 13:36 Dose: 10 mg Pharmacy Consult (Vancomycin Per Pharmacy*) 1 note FOLLOW UP . PRN PRN Reason: PER PROTOCOL Pharmacy Profile Note (Vancomycin Trough Check) 1 note FOLLOW UP 1130 ONE Stop: 06/30/17 11:31 Prochlorperazine Edisylate (Compazine Inj*) 5 mg IV Q6H PRN PRN Reason: NAUSEA/VOMITING Zolpidem Tartrate (Ambien Tab*) 10 mg PO BEDTIME PRN PRN Reason: INSOMNIA Vital Signs 06/27/17 06/27/17 06/27/17 19:18 20:00 20:42 Temperature 98.1 F Pulse Rate 73 Respiratory 12 16 16 Rate Blood Pressure 113/69 (mmHg) O2 Sat by Pulse 100 Oximetry 06/27/17 06/27/17 06/28/17 22:06 23:16 03:22 Temperature 97.8 F Pulse Rate 73 Respiratory 16 16 16 Rate Blood Pressure 112/67 (mmHg) O2 Sat by Pulse 100 Oximetry 06/28/17 06/28/17 06/28/17 03:42 07:26 08:00 Temperature 97.9 F 98.2 F Pulse Rate 69 70 Respiratory 16 21 16 Rate Blood Pressure 115/64 124/65 (mmHg) O2 Sat by Pulse 100 100 Oximetry 06/28/17 06/28/17 06/28/17 09:54 09:56 11:04 Temperature 98.3 F Pulse Rate 77 Respiratory 16 16 20 Rate Blood Pressure 103/68 (mmHg) O2 Sat by Pulse 100 Oximetry 06/28/17 06/28/17 06/28/17 11:32 13:36 14:05 Temperature Pulse Rate Respiratory 18 16 14 Rate Blood Pressure (mmHg) O2 Sat by Pulse Oximetry 06/28/17 06/28/17 15:28 15:36 Temperature 98.1 F Pulse Rate 75 Respiratory 12 16 Rate Blood Pressure 103/60 (mmHg) O2 Sat by Pulse 100 Oximetry Oxygen Devices in Use Now: None Appearance: cachectic, no acute distress, occasionally anxious. Ears/Nose/Mouth/Throat: Mucous Membranes Moist, - - poor dentition Neck: NL Appearance and Movements; NL JVP Respiratory: Symmetrical Chest Expansion and Respiratory Effort, Clear to Auscultation Cardiovascular: NL Sounds; No Murmurs; No JVD, RRR Abdominal: - - RLQ (and to less extent epigastric) tenderness and some guarding. right CVA tenderness. ostomy with brown liquid stool and air. Extremities: No Edema, No Clubbing, Cyanosis Skin: No Rash or Ulcers Neurological: Alert and Oriented x 3, NL Muscle Strength and Tone Nutrition: Taking PO's Result Diagrams: 06/28/17 10:36 06/28/17 10:36 Additional Lab and Data: Laboratory Results - last 24 hr 06/28/17 06/28/17 10:36 10:36 WBC 7.4 RBC 4.12 Hgb 12.2 Hct 36 MCV 88 MCH 30 MCHC 34 RDW 15 Plt Count 288 MPV 8 Neut % (Auto) 82.1 Lymph % (Auto) 7.3 L [place] % (Auto) 5.6 Eos % (Auto) 4.0 Baso % (Auto) 1.0 Absolute Neuts (auto) 6.1 Absolute Lymphs (auto) 0.5 L Absolute Monos (auto) 0.4 Absolute Eos (auto) 0.3 Absolute Basos (auto) 0.1 Absolute Nucleated RBC 0.01 Nucleated RBC % 0.1 Sodium 133 D Potassium TNP Chloride 107 Carbon Dioxide 16 L Anion Gap 10 BUN 10 Creatinine 1.15 H Est GFR ( Amer) 65.9 Est GFR (Non-Af Amer) 51.3 BUN/Creatinine Ratio 8.7 Glucose 123 H Calcium 8.3 L Magnesium 1.7 L Lipase 43 Microbiology and Other Data: Microbiology 06/26/17 17:25 Blood Venous Aerobic Blood Culture - Preliminary No Growth Day 2 06/26/17 17:25 Blood Venous Anaerobic Blood Culture - Preliminary No Growth Day 2 06/26/17 17:25 Blood Venous Blood Culture - Final 06/27/17 02:15 Urine Urine Culture - Preliminary Citrobacter Freundii Corynebacterium Striatum 06/27/17 06:06 Blood Venous Aerobic Blood Culture - Preliminary No Growth Day 1 06/27/17 06:06 Blood Venous Anaerobic Blood Culture - Preliminary No Growth Day 1 06/26/17 23:45 Nasal Nasal Screen MRSA (PCR)(SERGEY) - Final Mrsa Negative 06/26/17 23:45 Nasal Influenza Types A,B Antigen (SERGEY) - Final Specimen received for Influenza A/B Molecular testing Assess/Plan/Problems-Billing Assessment: 46 yo female chron's s/p 7 surgeries (total colectomy, ileostomy); chronic abdominal pain on methadone (usually 90mg daily but tapered to 60 then 30mg last two months), anxiety, depression, and 60lb unintentional weight loss over 1 year p/w RLQ/epigastric abdominal pain, dizziness, chest pressure x 2 days. ACS ruled out. Hyponatremic(improved) and (resolved) CHASTITY. Cornybacterium Striatum(75-100K) UTI, Citrobacter 1-10K. Adding vancomycin till sensitivities. GI consult ([facility]) pending. - Patient Problems (1) Weight loss Current Visit: Yes Status: Acute Comment: 60 lb unintentional in [address] chest/abdomen/pelvis w/o e/o masses or lymphadenopathy. w/o contrast given CHASTITY. GI ([facility]) consulted 06/28. outpatient is Dr. Álvarez but has not seen in year) . question whether needs EGD/scope in her end ileostomy to help evaluate for malignancy given chronic chron's. if negative consider outpatient PET to evaluate for malignancy. current smoker (1/2 pack average over ~15 years (off on since age 17) (2) Abdominal pain Current Visit: No Status: Acute Priority: High Code(s): R10.9 - UNSPECIFIED ABDOMINAL PAIN SNOMED Code(s): 07520621 Comment: RLQ/epigastric and now radiating to right flank with e/o UTI and maybe worse baseline chron's pain given tapering of her usual 90mg methadone to 30mg. No e/o sbo or ileus on noncontrast CT C/A/P). Known right ovarian cyst that sometimes flares. No blood or diarrhea per ileostomy CT c/a/p w/o masses or fluid collections lipase wnl lactic acid 1.0 f/u GI recs. May need scopes for weight loss w/u but could also help rule out gastritis, ulcers, crohn's flare. (3) UTI (urinary tract infection) Current Visit: Yes Status: Acute Comment: plan as above. right CVA tenderness however of note procalcitonin was only 0.2 (4) Crohns disease of small intestine Current Visit: No Status: Chronic Priority: Low Onset Date: 05/15/14 Code(s): K50.00 - CROHN'S DISEASE OF SMALL INTESTINE WITHOUT COMPLICATIONS SNOMED Code(s): 02621511 Comment: not clearly an acute flair. not on any biologic,5ASA, or steroids as outpatient. (5) Acute kidney failure Current Visit: No Status: Acute Comment: in setting of N/V, dehydration resolved with IVF. [facility] 1.76-> 1.42-> 1.15 (baseline ~1.1) (6) Chronic abdominal pain Current Visit: No Status: Acute Code(s): R10.9 - UNSPECIFIED ABDOMINAL PAIN ; G89.29 - OTHER CHRONIC PAIN SNOMED Code(s): 180141766 Comment: continue methadone 10mg TID along with dilaudid 0.5mg q4 had bee on on 90 until tapered to 60 then [address] Silver reportedly to increase again next week (7) Leukocytosis Current Visit: No Status: Acute Code(s): D72.829 - ELEVATED WHITE BLOOD CELL COUNT, UNSPECIFIED SNOMED Code(s): 465787080 Comment: resolved. (8) Right ovarian cyst Current Visit: Yes Status: Acute Code(s): N83.201 - UNSPECIFIED OVARIAN CYST , RIGHT SIDE SNOMED Code(s): 98315261 Comment: seemingly stable size (9) Hyponatremia Current Visit: Yes Status: Acute Code(s): E87.1 - HYPO-OSMOLALITY AND HYPONATREMIA SNOMED Code(s): 69299423 Comment: resolved, 128-> 125-> 133 with IVF. initially hypovolemic on exam BMP daily. Status and Disposition: medicine inpatient. Attending: Rao Valerio
[2017-06-28] MEDS: Vancomycin(*) 750 MG in NS 0.9% 250 ML* 250 ML IVPB SCH (23:38)
[2017-06-29] MEDS: HYDROmorphone INJ* 2 MG/ML CARPUJECT SYRINGE IV SLOW PU PRN ×5 (00:49→21:38)
[2017-06-29] MEDS: Vancomycin(*) 750 MG in NS 0.9% 250 ML* 250 ML IVPB SCH ×2 (02:57→12:46)
[2017-06-29] MEDS: Heparin VIAL(*) 5000 UNITS/ML VIAL (FIVE THOUSAND) SUBCUT SCH ×3 (05:48→21:39)
[2017-06-29] MEDS: Methadone TAB* 10 MG PO SCH ×3 (09:03→21:39)
[2017-06-29] MEDS: FLUoxetine CAP* 20 MG PO SCH (09:03)
[2017-06-29 11:32] LABS: BUN/Creatinine Ratio 8.3 (8-20); Calcium 8.2 mg/dL (8.6-10.3); EGFR African American 70.1 (>60); EGFR Non-African American 54.5 (>60); Magnesium 1.9 mg/dL (1.9-2.7)
--- NOTE | 2017-06-29 14:33 | PN ---
Subjective Date of Service: 06/29/17 Interval History: HOSPITALIST PROGRESS NOTE Patient seen and examined at bedside. She feels a little better today. Abdominal pain is less intense, tolerating diet well with no N/V. Ostomy functioning well. Multiple family stressors at home. Family History: Unchanged from Admission Social History: Unchanged from Admission Past Medical History: Unchanged from Admission Objective Active Medications: Alprazolam (Xanax Tab*) 0.5 mg PO Q6H PRN PRN Reason: ANXIETY Buspirone HCl (Buspar Tab*) 7.5 mg PO BID PRN PRN Reason: ANXIETY Fluoxetine HCl (Prozac Cap*) 40 mg PO DAILY [facility] Last Admin: 06/29/17 09:03 Dose: 40 mg Heparin Sodium (Porcine) (Heparin Vial(*)) 5,000 units SUBCUT Q8HR [facility] Last Admin: 06/29/17 05:48 Dose: 5,000 units Hydromorphone HCl (Dilaudid Inj*) 0.5 mg IV SLOW PU Q4H PRN PRN Reason: PAIN Last Admin: 06/29/17 12:46 Dose: 0.5 mg Vancomycin HCl 750 mg/ Sodium (Chloride) 250 mls @ 166.667 mls/hr IVPB Q12H [facility] Last Admin: 06/29/17 12:46 Dose: 166.667 mls/hr Methadone HCl (Dolophine Tab*) 10 mg PO TID [facility] Last Admin: 06/29/17 09:03 Dose: 10 mg Pharmacy Consult (Vancomycin Per Pharmacy*) 1 note FOLLOW UP . PRN PRN Reason: PER PROTOCOL Pharmacy Profile Note (Vancomycin Trough Check) 1 note FOLLOW UP 1130 ONE Stop: 06/30/17 11:31 Prochlorperazine Edisylate (Compazine Inj*) 5 mg IV Q6H PRN PRN Reason: NAUSEA/VOMITING Zolpidem Tartrate (Ambien Tab*) 10 mg PO BEDTIME PRN PRN Reason: INSOMNIA Vital Signs 06/29/17 06/29/17 11:26 12:46 Temperature 98.2 F Pulse Rate 70 Respiratory 21 18 Rate Blood Pressure 113/53 (mmHg) O2 Sat by Pulse 99 Oximetry Oxygen Devices in Use Now: None Appearance: Pleasant lady lying in bed in [facility], appears older than stated age. Eyes: No Scleral Icterus Ears/Nose/Mouth/Throat: Mucous Membranes Moist Neck: Trachea Midline Respiratory: Symmetrical Chest Expansion and Respiratory Effort, Clear to Auscultation Cardiovascular: RRR - Normal S1 and S2 Abdominal: - - Soft, multiple surgical scars, functioning ostomy, BS+ Neurological: Alert and Oriented x 3, NL Muscle Strength and Tone Lines/Tubes/Other Access: Clean, Dry and Intact Peripheral IV Nutrition: Taking PO's Result Diagrams: 06/28/17 10:36 06/29/17 10:45 Assess/Plan/Problems-Billing Assessment: Mrs. Key is a 46 yo female with PMH of Chron's disease s/p multiple surgeries (total colectomy, ileostomy); chronic abdominal pain on methadone, anxiety, depression, who presented to ED with c/o 60lb unintentional weight loss over 1 year, RLQ/epigastric abdominal pain, dizziness, chest pressure x 2 days. - Patient Problems (1) Weight loss Comment: - Patient has lost 60 lb unintentionally over the last year. - CT chest/abdomen/pelvis showed no masses or lymphadenopathy (without contrast due to CHASTITY). - Awaiting GI consult - ?EGD/scope in her end ileostomy to help evaluate for malignancy given chronic Chron's. If negative would consider outpatient PET to evaluate for malignancy, as patient is also a smoker. (2) Abdominal pain Comment: - Etiology unclear - CT showed no obstruction, no clinical indication of flare at this time. It could be associated with her Methadone taper. Known right ovarian cyst sometimes causes pain, but different pattern. - May need scopes for weight loss w/u but could also help rule out gastritis, ulcers, crohn's flare. (3) UTI (urinary tract infection) Comment: - Patient has right CVA tenderness, abnormal UA and culture grew Corynebacterium and Citrobacter. - D/c Vanco and start Ceftriaxone. (4) Crohns disease of small intestine Comment: - Not clearly an acute flair. - She's not on any biologic, 5ASA, or steroids as outpatient. (5) Acute kidney failure Comment: - Back at baseline. (6) DVT prophylaxis Comment: - SQ heparin. (7) Full code status Status and Disposition: Inpatient.
[2017-06-29] MEDS: cefTRIAXone VIAL(*) 1,000 MG in NS 0.9% 50 ML* 50 ML IVPB SCH (15:03)
[2017-06-30] MEDS: HYDROmorphone INJ* 2 MG/ML CARPUJECT SYRINGE IV SLOW PU PRN ×4 (02:00→19:16)
--- NOTE | 2017-06-30 02:02 | CONS ---
GASTROENTEROLOGY CONSULTATION: DATE: 06/29/17 CONSULTING PHYSICIANs: Rao Valerio /Constantino Hanson.* REASON FOR CONSULTATION: Abdominal pain and weight loss of 65 to 70 pounds since January 2014 (documented in inpatient sequential weights). HISTORY OF PRESENT ILLNESS: This 46-year-old woman who had the onset of inflammatory bowel disease at age 21, status post multiple surgeries culminating in an end-ileostomy at [facility] in [place] in 2002, has a pattern of frequently experiencing abdominal pain with nausea and vomiting sometimes with complaints of high ostomy output and yet no documented infection or edema or obstruction on imaging studies. She has had 12 CTs over the last 4 years. This was discussed with her. This particular admission she described somewhat differently in that she was feeling "not well" (she could not really enunciate anything more specific) and felt likely she was getting an upper respiratory infection. There was a little bit of shortness of breath and she felt she could not get enough air, so eventually, she decided she might have pneumonia and came to the emergency room. The admission chief complaint is chest pain. Nothing turned up on workup , but she began complaining of abdominal pain. Her original description goes through her feeling that whatever started in her chest or anywhere else in her body would eventually hit home on her abdomen and she end up "with the usual stuff." Over the last few days, she has been requesting pain medicine and has been eating very little. Her weight loss has emerged as a major concern. CT chest, abdomen, and pelvis on 06/27/17 showed postoperative changes, but no obstruction and no mass or acute problem. She states that over the last year following up at her primary office every 3 months, her weight loss has been observed, but never been focused as primary doctor was out sick and there has been rotation of others. Her methadone that was up to 90 mg a day was tapered over the last 4 to 6 months down to 30 mg a day. She says her last abdominal type flare-up that started in the abdomen was january be 6 months ago. During an admission in 2012, Dr. Álvarez did an ileoscopy finding, small erosions. Several admissions around then were marked by using intravenous prednisone and then brief courses as an outpatient. She has not been on prednisone recently as an outpatient. She did receive intravenous Solu-Medrol in October [address] Álvarez saw her and wondered about oral budesonide. PAST MEDICAL HISTORY: 1. Crohn's disease - status post total colectomy. 2. Chronic low back pain. 3. Anxiety. 4. History of pulmonary embolism in the early . 5. Chronic narcotic use. 6. Weight loss - currently being worked up. MEDICATIONS: As an outpatient: 1. Buspirone. 2. Zolpidem. 3. Fluoxetine. 4. Alprazolam. 5. Methadone. SOCIAL HISTORY: She is . Her is morbidly obese and has sleep apnea. She does smoke a small amount. REVIEW OF SYSTEMS: No history of seizure, MS, fainting, palpitations, IA, valvular disease, hepatitis, hematuria, skin disorder, TB, or thyroid disorder. PHYSICAL EXAM: She is an underweight middle-aged woman almost gaunt, in no distress at this time. 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 HEENT exam is unremarkable. She has no adenopathy. Lungs are clear. Heart sounds are regular. Breasts and pelvic exam is deferred. Abdomen: There is an upper midline ostomy discharging a lot of mucoid medium brown granular stool. The abdomen is otherwise scaphoid and unremarkable. Extremities show no edema. DIAGNOSTIC STUDIES/LAB DATA: Lab summary review reveals TSH 0.99 on 06/26/17, B12 184 (most recent in May 2014). Elevation of alkaline phosphatase at 132 is noted and the history shows it fluctuates greatly. Hemoglobin is 12.2, hematocrit 36, MCV 88, platelets 288. Albumin 3.7 and CRP 4.89 (normal less than 5). IMPRESSION: This is a 46-year-old woman with a history of inflammatory bowel disease, status post total colectomy, now has recurring pattern of being admitted with nausea, vomiting, and complaints of abdominal pain. This is not unusual, though her well documented weight loss 65 to 70 pounds was started in January 2014 is unusual. The etiology is probably related to restricted intake from adhesions or recurring small bowel obstruction, quite possibly enhanced by high dose narcotics, though it is interesting the abdominal complaints and weight loss have continued on in the last few months while methadone has been fairly aggressively tapered. In short, the cause for all of her diagnoses and findings is unclear. The first step will be repeat an upper endoscopy after 11 years (she had fairly significant erosive gastroesophageal reflux disease back then). Rare, but not impossible diagnosis would include SMA stenosis, [place]'s disease, and small bowel bacterial overgrowth. [id number]/[facility] #: [id number] [facility] HOSPITALJud
[2017-06-30] MEDS: Heparin VIAL(*) 5000 UNITS/ML VIAL (FIVE THOUSAND) SUBCUT SCH ×3 (06:16→21:39)
[2017-06-30] MEDS: FLUoxetine CAP* 20 MG PO SCH (08:14)
[2017-06-30] MEDS: Methadone TAB* 10 MG PO SCH ×3 (08:14→21:38)
--- NOTE | 2017-06-30 10:27 | PN ---
Subjective Date of Service: 06/30/17 Interval History: HOSPITALIST PROGRESS NOTE Patient seen and examined at bedside. She offers no new complaints today. Family History: Unchanged from Admission Social History: Unchanged from Admission Past Medical History: Unchanged from Admission Objective Active Medications: Alprazolam (Xanax Tab*) 0.5 mg PO Q6H PRN PRN Reason: ANXIETY Buspirone HCl (Buspar Tab*) 7.5 mg PO BID PRN PRN Reason: ANXIETY Fluoxetine HCl (Prozac Cap*) 40 mg PO DAILY [facility] Last Admin: 06/30/17 08:14 Dose: 40 mg Heparin Sodium (Porcine) (Heparin Vial(*)) 5,000 units SUBCUT Q8HR [facility] Last Admin: 06/30/17 06:16 Dose: 5,000 units Hydromorphone HCl (Dilaudid Inj*) 0.5 mg IV SLOW PU Q4H PRN PRN Reason: PAIN Last Admin: 06/30/17 08:15 Dose: 0.5 mg Ceftriaxone Sodium 1,000 mg/ (Sodium Chloride) 50 mls @ 200 mls/hr IVPB Q24H [facility] Last Admin: 06/29/17 15:03 Dose: 200 mls/hr Methadone HCl (Dolophine Tab*) 10 mg PO TID [facility] Last Admin: 06/30/17 08:14 Dose: 10 mg Prochlorperazine Edisylate (Compazine Inj*) 5 mg IV Q6H PRN PRN Reason: NAUSEA/VOMITING Zolpidem Tartrate (Ambien Tab*) 10 mg PO BEDTIME PRN PRN Reason: INSOMNIA Vital Signs 06/30/17 06/30/17 06/30/17 03:46 08:07 08:14 Temperature 98.5 F Pulse Rate 73 75 Respiratory 17 16 16 Rate Blood Pressure 108/67 93/62 (mmHg) O2 Sat by Pulse 99 98 Oximetry Oxygen Devices in Use Now: None Appearance: Pleasant lady lying in bed in [facility], appears older than stated age. Eyes: No Scleral Icterus Ears/Nose/Mouth/Throat: Mucous Membranes Moist, - - Poor dentition Neck: Trachea Midline Respiratory: Symmetrical Chest Expansion and Respiratory Effort, Clear to Auscultation Cardiovascular: RRR - Normal S1 and S2 Abdominal: - - Soft, mild RLQ tenderness, NG, NR, working ileostomy Neurological: Alert and Oriented x 3, NL Muscle Strength and Tone Lines/Tubes/Other Access: Clean, Dry and Intact Peripheral IV Nutrition: Taking PO's Result Diagrams: 06/28/17 10:36 06/29/17 10:45 Assess/Plan/Problems-Billing Assessment: Mrs. Key is a 46 yo female with PMH of Chron's disease s/p multiple surgeries (total colectomy, ileostomy); chronic abdominal pain on methadone, anxiety, depression, who presented to ED with c/o 60lb unintentional weight loss over 1 year, RLQ/epigastric abdominal pain, dizziness, chest pressure x 2 days. - Patient Problems (1) Weight loss Comment: - Patient has lost 60 lb unintentionally over the last year. - CT chest/abdomen/pelvis showed no masses or lymphadenopathy (without contrast due to CHASTITY). - GI consult appreciated - for EGD today. Further management depends on this result. (2) Abdominal pain Comment: - Etiology unclear - CT showed no obstruction, no clinical indication of flare at this time. It could be associated with her Methadone taper. Known right ovarian cyst sometimes causes pain, but different pattern. - EGD today as part of her w/u for weight loss, but could also help rule out gastritis, ulcers, crohn's flare. (3) UTI (urinary tract infection) Comment: - Patient has right CVA tenderness, abnormal UA and culture grew Corynebacterium and Citrobacter. - Continue Ceftriaxone. (4) Crohns disease of small intestine Comment: - Not clearly an acute flair. - She's not on any biologic, 5ASA, or steroids as outpatient. (5) Acute kidney failure Comment: - Back at baseline. (6) DVT prophylaxis Comment: - SQ heparin. (7) Full code status Status and Disposition: Inpatient.
[2017-06-30] MEDS ORDERED: Vancomycin Trough Check NOTE FOLLOW UP ONE (11:30)
[2017-06-30] MEDS ORDERED: Midazolam* 1 MG/ML 10 ML VIAL (10 MG) ONE (13:42)
[2017-06-30] MEDS ORDERED: fentaNYL* 50 MCG/ML 2 ML VIAL (100 MCG VIAL) ONE (13:42)
[2017-06-30] MEDS ORDERED: Meperidine SYRINGE* 50 MG/ML ONE (14:20)
[2017-06-30] MEDS: cefTRIAXone VIAL(*) 1,000 MG in NS 0.9% 50 ML* 50 ML IVPB SCH (16:47)
[2017-07-01] MEDS: HYDROmorphone INJ* 2 MG/ML CARPUJECT SYRINGE IV SLOW PU PRN ×6 (02:28→23:15)
--- NOTE | 2017-07-01 04:02 | PRO ---
CC: Dr. Silver. Dr. Mcguire* PROCEDURE REPORT: DATE OF PROCEDURE: 06/30/17 - inpatient, room #410-02. PROCEDURE: EGD. INDICATION: Weight loss and abdominal pain. REFERRING PHYSICIAN: Dr. Silver. MEDICATIONS GIVEN: 1. 50 mg IV Demerol. 2. 10 mg IV Versed. DESCRIPTION OF PROCEDURE: After the EGD procedure including the risks, benefits , and alternatives, not limited to perforation, surgery, and/or were explained to Mrs. Key, written consent was then obtained. IV medication was given and a bite-block was placed between the teeth. An Olympus pediatric gastroscope was then inserted into the patient's mouth, advanced down the esophagus, into the stomach, into the distal duodenum. In the esophagus at the GE junction, Z-line was intact. No erosive esophagitis, stricture or ring was seen. The scope was advanced through the widely patent GE junction into the body of the stomach. Retroflex view was unremarkable. Forward view also was unremarkable. Biopsies were obtained. The scope was advanced through the widely patent pylorus into the duodenal bulb, into the distal duodenum. There were a few small ulcers. Biopsies were obtained for celiac disease. The scope was then withdrawn from the patient. She tolerated the procedure well and was returned to the hospital room in stable condition. IMPRESSION: 1. Complete upper endoscopy into the distal duodenum with biopsies. 2. Biopsies for H. pylori and celiac disease. 3. No etiology was seen for her pain or weight loss. I will check a gastrin level given her duodenal ulcers. Additionally, she can follow up with Dr. Mcguire for further discussions regarding a potential capsule endoscopy to visualize her small bowel and then the hospitalist had recommended a PET scan. [id number]/[facility] #: [id number] [facility]ITALJud
[2017-07-01] MEDS: Heparin VIAL(*) 5000 UNITS/ML VIAL (FIVE THOUSAND) SUBCUT SCH ×3 (06:18→21:12)
[2017-07-01] MEDS: FLUoxetine CAP* 20 MG PO SCH (08:08)
[2017-07-01] MEDS: Methadone TAB* 10 MG PO SCH ×3 (08:08→21:11)
[2017-07-01] MEDS: cefTRIAXone VIAL(*) 1,000 MG in NS 0.9% 50 ML* 50 ML IVPB SCH (15:15)
--- NOTE | 2017-07-01 16:47 | PN ---
Subjective Date of Service: 07/01/17 Interval History: No emesis today. Poor appetite. Taking some Ensure. Still has abdominal pain. No new c/o. Family History: Unchanged from Admission Social History: Unchanged from Admission Past Medical History: Unchanged from Admission Objective Active Medications: Alprazolam (Xanax Tab*) 0.5 mg PO Q6H PRN PRN Reason: ANXIETY Buspirone HCl (Buspar Tab*) 7.5 mg PO BID PRN PRN Reason: ANXIETY Fluoxetine HCl (Prozac Cap*) 40 mg PO DAILY [facility] Last Admin: 07/01/17 08:08 Dose: 40 mg Heparin Sodium (Porcine) (Heparin Vial(*)) 5,000 units SUBCUT Q8HR [facility] Last Admin: 07/01/17 14:30 Dose: 5,000 units Hydromorphone HCl (Dilaudid Inj*) 0.5 mg IV SLOW PU Q4H PRN PRN Reason: PAIN Last Admin: 07/01/17 14:34 Dose: 0.5 mg Ceftriaxone Sodium 1,000 mg/ (Sodium Chloride) 50 mls @ 200 mls/hr IVPB Q24H [facility] Last Admin: 07/01/17 15:15 Dose: 200 mls/hr Methadone HCl (Dolophine Tab*) 10 mg PO TID [facility] Last Admin: 07/01/17 14:29 Dose: 10 mg Prochlorperazine Edisylate (Compazine Inj*) 5 mg IV Q6H PRN PRN Reason: NAUSEA/VOMITING Zolpidem Tartrate (Ambien Tab*) 10 mg PO BEDTIME PRN PRN Reason: INSOMNIA Vital Signs 06/30/17 06/30/17 06/30/17 17:16 19:16 19:28 Temperature 98.3 F 98.2 F Pulse Rate 78 82 Respiratory 16 16 16 Rate Blood Pressure 109/59 109/64 (mmHg) O2 Sat by Pulse 100 98 Oximetry 06/30/17 06/30/17 06/30/17 20:16 21:21 21:38 Temperature 98.3 F Pulse Rate 76 Respiratory 16 16 16 Rate Blood Pressure 107/65 (mmHg) O2 Sat by Pulse 98 Oximetry 06/30/17 06/30/17 07/01/17 23:18 23:38 01:27 Temperature 98.1 F Pulse Rate 72 Respiratory 16 16 16 Rate Blood Pressure 126/68 (mmHg) O2 Sat by Pulse 100 Oximetry 07/01/17 07/01/17 07/01/17 02:28 03:05 03:28 Temperature 98.2 F Pulse Rate 71 Respiratory 16 16 16 Rate Blood Pressure 118/71 (mmHg) O2 Sat by Pulse 98 Oximetry 07/01/17 07/01/17 07/01/17 06:32 06:36 07:32 Temperature 98.2 F Pulse Rate 72 Respiratory 16 16 18 Rate Blood Pressure 125/68 (mmHg) O2 Sat by Pulse 100 Oximetry 07/01/17 07/01/17 07/01/17 08:00 08:08 10:08 Temperature Pulse Rate Respiratory 16 18 16 Rate Blood Pressure (mmHg) O2 Sat by Pulse Oximetry 07/01/17 07/01/17 07/01/17 10:35 11:35 11:44 Temperature 98.3 F Pulse Rate 78 Respiratory 16 16 20 Rate Blood Pressure 98/64 (mmHg) O2 Sat by Pulse 100 Oximetry 07/01/17 07/01/17 14:29 14:34 Temperature Pulse Rate Respiratory 18 17 Rate Blood Pressure (mmHg) O2 Sat by Pulse Oximetry Oxygen Devices in Use Now: None Appearance: Alert, partly up in bed. In good spirits. Looks comfortable at rest. Eyes: No Scleral Icterus Respiratory: Symmetrical Chest Expansion and Respiratory Effort, Clear to Auscultation, Clear to Percussion Cardiovascular: NL Sounds; No Murmurs; No JVD, RRR, No Edema Abdominal: NL Sounds; No Tenderness; No Distention - Soft, scaphoid. Nl BS. Mod tender diffusely. , No Hepatosplenomegaly Extremities: No Edema, No Clubbing, Cyanosis, - Skin: No Rash or Ulcers, No Nodules or Sclerosis, - Neurological: Alert and Oriented x 3, NL Sensation Result Diagrams: 06/28/17 10:36 06/29/17 10:45 Additional Lab and Data: Laboratory Results - last 24 hr 06/28/17 06/28/17 10:36 10:36 WBC 7.4 RBC 4.12 Hgb 12.2 Hct 36 MCV 88 MCH 30 MCHC 34 RDW 15 Plt Count 288 MPV 8 Neut % (Auto) 82.1 Lymph % (Auto) 7.3 L [place] % (Auto) 5.6 Eos % (Auto) 4.0 Baso % (Auto) 1.0 Absolute Neuts (auto) 6.1 Absolute Lymphs (auto) 0.5 L Absolute Monos (auto) 0.4 Absolute Eos (auto) 0.3 Absolute Basos (auto) 0.1 Absolute Nucleated RBC 0.01 Nucleated RBC % 0.1 Sodium 133 D Potassium TNP Chloride 107 Carbon Dioxide 16 L Anion Gap 10 BUN 10 Creatinine 1.15 H Est GFR ( Amer) 65.9 Est GFR (Non-Af Amer) 51.3 BUN/Creatinine Ratio 8.7 Glucose 123 H Calcium 8.3 L Magnesium 1.7 L Lipase 43 Microbiology and Other Data: Microbiology 06/26/17 17:25 Blood Venous Aerobic Blood Culture - Preliminary No Growth Day 2 06/26/17 17:25 Blood Venous Anaerobic Blood Culture - Preliminary No Growth Day 2 06/26/17 17:25 Blood Venous Blood Culture - Final 06/27/17 02:15 Urine Urine Culture - Preliminary Citrobacter Freundii Corynebacterium Striatum 06/27/17 06:06 Blood Venous Aerobic Blood Culture - Preliminary No Growth Day 1 06/27/17 06:06 Blood Venous Anaerobic Blood Culture - Preliminary No Growth Day 1 06/26/17 23:45 Nasal Nasal Screen MRSA (PCR)(SERGEY) - Final Mrsa Negative 06/26/17 23:45 Nasal Influenza Types A,B Antigen (SERGEY) - Final Specimen received for Influenza A/B Molecular testing Assess/Plan/Problems-Billing Assessment: Mrs. Key is a 46 yo female with PMH of Chron's disease s/p multiple surgeries (total colectomy, ileostomy); chronic abdominal pain on methadone, anxiety, depression, who presented to ED with c/o 60lb unintentional weight loss over 1 year, RLQ/epigastric abdominal pain, dizziness, chest pressure x 2 days. - Patient Problems (1) Acute kidney failure Current Visit: Yes Status: Acute Comment: - Back at baseline. Due to dehydration from emesis, poor intake at home. (2) Weight loss Current Visit: Yes Status: Acute Comment: - Patient has lost 60 lb unintentionally over the last year. - CT chest/abdomen/pelvis showed no masses or lymphadenopathy (without contrast due to CHASTITY). ? related to partial SBO, emesis. EGD 06/30 showed a few small duodenal ulcers. Start bid PPI. Methylmalonic acid level add on. Continue methadone. (3) UTI (urinary tract infection) Current Visit: Yes Status: Acute Comment: Culture grew Corynebacterium and C. freundii. - Continue Ceftriaxone. Status and Disposition: Inpatient.
[2017-07-01] MEDS ORDERED: Omeprazole CAP* 20 MG PO ONE (16:49)
[2017-07-01] MEDS ORDERED: Omeprazole CAP* 20 MG PO SCH (17:00)
[2017-07-01] MEDS: Omeprazole CAP* 20 MG PO SCH (21:10)
[2017-07-02] MEDS: HYDROmorphone INJ* 2 MG/ML CARPUJECT SYRINGE IV SLOW PU PRN ×5 (03:21→21:20)
[2017-07-02] MEDS: Heparin VIAL(*) 5000 UNITS/ML VIAL (FIVE THOUSAND) SUBCUT SCH ×3 (06:10→21:11)
[2017-07-02] MEDS: Omeprazole CAP* 20 MG PO SCH ×2 (08:07→21:11)
[2017-07-02] MEDS: Methadone TAB* 10 MG PO SCH ×3 (08:07→21:11)
[2017-07-02] MEDS: FLUoxetine CAP* 20 MG PO SCH (08:07)
[2017-07-02] MEDS: cefTRIAXone VIAL(*) 1,000 MG in NS 0.9% 50 ML* 50 ML IVPB SCH (14:57)
--- NOTE | 2017-07-02 15:52 | PN ---
Subjective Date of Service: 07/02/17 Interval History: No subj change. Family History: Unchanged from Admission Social History: Unchanged from Admission Past Medical History: Unchanged from Admission Objective Active Medications: Alprazolam (Xanax Tab*) 0.5 mg PO Q6H PRN PRN Reason: ANXIETY Buspirone HCl (Buspar Tab*) 7.5 mg PO BID PRN PRN Reason: ANXIETY Fluoxetine HCl (Prozac Cap*) 40 mg PO DAILY ON LICENSE OF [facility] Last Admin: 07/02/17 08:07 Dose: 40 mg Heparin Sodium (Porcine) (Heparin Vial(*)) 5,000 units SUBCUT Q8HR ON LICENSE OF [facility] Last Admin: 07/02/17 15:00 Dose: 5,000 units Hydromorphone HCl (Dilaudid Inj*) 0.5 mg IV SLOW PU Q4H PRN PRN Reason: PAIN Last Admin: 07/02/17 12:07 Dose: 0.5 mg Methadone HCl (Dolophine Tab*) 10 mg PO TID ON [facility] OF [facility] Last Admin: 07/02/17 15:01 Dose: 10 mg Omeprazole (Prilosec Cap*) 20 mg PO BID ON [facility] OF [facility] Last Admin: 07/02/17 08:07 Dose: 20 mg Prochlorperazine Edisylate (Compazine Inj*) 5 mg IV Q6H PRN PRN Reason: NAUSEA/VOMITING Zolpidem Tartrate (Ambien Tab*) 10 mg PO BEDTIME PRN PRN Reason: INSOMNIA Vital Signs 07/01/17 07/01/17 07/01/17 16:29 18:58 19:57 Temperature 97.3 F Pulse Rate 73 Respiratory 16 18 18 Rate Blood Pressure 108/64 (mmHg) O2 Sat by Pulse 99 Oximetry 07/01/17 07/01/17 07/01/17 19:58 21:11 22:45 Temperature Pulse Rate Respiratory 16 16 16 Rate Blood Pressure (mmHg) O2 Sat by Pulse Oximetry 07/01/17 07/01/17 07/01/17 23:11 23:15 23:56 Temperature 98.2 F Pulse Rate 71 Respiratory 16 16 16 Rate Blood Pressure 108/65 (mmHg) O2 Sat by Pulse 99 Oximetry 07/02/17 07/02/17 07/02/17 00:15 03:21 03:51 Temperature 98.2 F Pulse Rate 71 Respiratory 16 16 16 Rate Blood Pressure 112/74 (mmHg) O2 Sat by Pulse 99 Oximetry 07/02/17 07/02/17 07/02/17 04:21 07:50 08:00 Temperature 98.0 F Pulse Rate 71 Respiratory 16 20 16 Rate Blood Pressure 115/70 (mmHg) O2 Sat by Pulse 100 Oximetry 07/02/17 07/02/17 07/02/17 08:04 08:07 09:04 Temperature Pulse Rate Respiratory 16 16 16 Rate Blood Pressure (mmHg) O2 Sat by Pulse Oximetry 07/02/17 07/02/17 07/02/17 12:07 13:07 14:08 Temperature 97.5 F Pulse Rate 74 Respiratory 16 18 Rate Blood Pressure 97/56 (mmHg) O2 Sat by Pulse 98 Oximetry 07/02/17 15:01 Temperature Pulse Rate Respiratory 16 Rate Blood Pressure (mmHg) O2 Sat by Pulse Oximetry Oxygen Devices in Use Now: None Appearance: Alert, partly up in bed. In good spirits. Looks comfortable. Eyes: No Scleral Icterus Extremities: No Edema, No Clubbing, Cyanosis, - Skin: No Rash or Ulcers, No Nodules or Sclerosis, - Neurological: Alert and Oriented x 3, NL Sensation Result Diagrams: 06/28/17 10:36 06/29/17 10:45 Additional Lab and Data: Laboratory Results - last 24 hr 06/28/17 06/28/17 10:36 10:36 WBC 7.4 RBC 4.12 Hgb 12.2 Hct 36 MCV 88 MCH 30 MCHC 34 RDW 15 Plt Count 288 MPV 8 Neut % (Auto) 82.1 Lymph % (Auto) 7.3 L [place] % (Auto) 5.6 Eos % (Auto) 4.0 Baso % (Auto) 1.0 Absolute Neuts (auto) 6.1 Absolute Lymphs (auto) 0.5 L Absolute Monos (auto) 0.4 Absolute Eos (auto) 0.3 Absolute Basos (auto) 0.1 Absolute Nucleated RBC 0.01 Nucleated RBC % 0.1 Sodium 133 D Potassium TNP Chloride 107 Carbon Dioxide 16 L Anion Gap 10 BUN 10 Creatinine 1.15 H Est GFR ( Amer) 65.9 Est GFR (Non-Af Amer) 51.3 BUN/Creatinine Ratio 8.7 Glucose 123 H Calcium 8.3 L Magnesium 1.7 L Lipase 43 Microbiology and Other Data: Microbiology 06/26/17 17:25 Blood Venous Aerobic Blood Culture - Preliminary No Growth Day 2 06/26/17 17:25 Blood Venous Anaerobic Blood Culture - Preliminary No Growth Day 2 06/26/17 17:25 Blood Venous Blood Culture - Final 06/27/17 02:15 Urine Urine Culture - Preliminary Citrobacter Freundii Corynebacterium Striatum 06/27/17 06:06 Blood Venous Aerobic Blood Culture - Preliminary No Growth Day 1 06/27/17 06:06 Blood Venous Anaerobic Blood Culture - Preliminary No Growth Day 1 06/26/17 23:45 Nasal Nasal Screen MRSA (PCR)(SERGEY) - Final Mrsa Negative 06/26/17 23:45 Nasal Influenza Types A,B Antigen (SERGEY) - Final Specimen received for Influenza A/B Molecular testing Assess/Plan/Problems-Billing Assessment: Mrs. Key is a 46 yo female with PMH of Chron's disease s/p multiple surgeries (total colectomy, ileostomy); chronic abdominal pain on methadone, anxiety, depression, who presented to ED with c/o 60lb unintentional weight loss over 1 year, RLQ/epigastric abdominal pain, dizziness, chest pressure x 2 days. - Patient Problems (1) Acute kidney failure Current Visit: Yes Status: Acute Priority: Medium Comment: - Back at baseline. Due to dehydration from emesis, poor intake at home. (2) Weight loss Current Visit: Yes Status: Acute Comment: - Patient has lost 60 lb unintentionally over the last year. - CT chest/abdomen/pelvis showed no masses or lymphadenopathy (without contrast due to CHASTITY). ? related to partial SBO, emesis. EGD 06/30 showed a few small duodenal ulcers. Start bid PPI. Methylmalonic acid level was 17 on 07/01/17. Continue methadone. (3) UTI (urinary tract infection) Current Visit: Yes Status: Acute Comment: Culture grew Corynebacterium and C. freundii. Stop Ceftriaxone, had 4 doses. Status and Disposition: Inpatient. Anticipate discharge 07/03/17.
--- NOTE | 2017-07-03 02:01 | PN ---
Amended report to enter date of service. PROGRESS NOTE: DATE OF SERVICE: 07/02/2017. HISTORY OF PRESENT ILLNESS: The patient was admitted with complaint of abdominal pain and significant weight loss. She still complains of mild abdominal pain. She had complicated history of inflammatory bowel disease since age 21 and had multiple surgeries including colectomy and ileostomy performed in 2001. She reports that she has been on chronic narcotics for several years and continues to have intermittent abdominal pain. She had significant weight loss 60-70 lbs during past a few years. EGD on 06/30/17, revealed two small nonbleeding ulcers in the duodenum. Duodenal biopsies reveal no evidence of celiac disease and CLOtest was negative. Her serum gastrin level was also within normal limits. She was advised to continue Prilosec. PHYSICAL EXAMINATION: A middle-aged lady, cachectic appearing, laying in the bed, without any acute distress. She is afebrile, pulse 74, blood pressure 97/56. Abdomen revealed ileostomy in the mid abdomen with multiple old well-healed scars. No abdominal tenderness or rebound. LABORATORY DATA: Data revealed normal CBC. Her electrolyte abnormalities including hyponatremia and hypokalemia were corrected. Recent CT scan of the chest, abdomen, and pelvis on 06/27/17 revealed no acute abnormalities. ASSESSMENT: A 46-year-old lady with previous history of inflammatory bowel disease, with ileostomy, who had chronic intermittent abdominal pain, with poor oral intake and significant weight loss, etiology unclear. RECOMMENDATIONS: 1. Continue supportive care. The patient takes Methadone for several years and will remain on that and follow up with her pain management provider. 2. Continue Ensure. 3. Continue Prilosec for at least 2 months and then may discontinue it. [id number]/[facility] #: [id number] [facility]
[2017-07-03] MEDS: HYDROmorphone INJ* 2 MG/ML CARPUJECT SYRINGE IV SLOW PU PRN ×2 (03:39→07:42)
[2017-07-03] MEDS: Heparin VIAL(*) 5000 UNITS/ML VIAL (FIVE THOUSAND) SUBCUT SCH (06:29)
[2017-07-03 07:24] VITALS: BP 116/74
[2017-07-03] MEDS: FLUoxetine CAP* 20 MG PO SCH (08:07)
[2017-07-03] MEDS: Methadone TAB* 10 MG PO SCH (08:08)
[2017-07-03] MEDS: Omeprazole CAP* 20 MG PO SCH (08:08)
--- NOTE | 2017-07-03 10:32 | PN ---
Progress Note - Progress Note Date of Service: 07/03/17 Note: Time spent on discharge 45 minutes.
--- NOTE | 2017-07-04 01:18 | DS ---
CC: Dr. Silver; Dr. Mcguire DISCHARGE SUMMARY: DATE OF ADMISSION: 06/27/17 DATE OF DISCHARGE: 07/03/17 HISTORY OF PRESENT ILLNESS: This is a 46-year-old woman who presented with chest pain. She does lizama ve a history of DVT and pulmonary embolus. The patient had repeat troponin levels which were normal. She stopped having chest pain and she did not have shortness of breath. She did have abdominal, nausea and vomiting. She had EGD which show ed a few small duodenal ulcers. The CLOtest was negative. She was started on a PPI. She has chronic pain and chronic weight loss problem. She will follow up with Dr. Mcguire for all o f her GI problems. She will stay on the same amount of methadone. I have added the PPI. She will b e on omeprazole twice a day, I have given her enough prescriptions for 2 months. After that, she co uld probably go to once a day. Continue as per Dr. Mcguire's recommendations. FINAL DIAGNOSES: 1. Small duodenal ulcers. 2. Acute kidney injury. 3. Chronic weight loss. 4. Urinary tract infection. The patient completed antibiotic treatment for urinary tract infection. DISCHARGE MEDICATIONS: 1. Omeprazole 20 mg b.i.d. 2. Buspirone 7.5 mg b.i.d. p.r.n. 3. Zolpidem CR 12.5 mg h.s. p.r.n. 4. Methadone 10 mg t.i.d. 5. Fluoxetine 40 mg daily. 6. Alprazolam 0.5 mg every 6 hours p.r.n. [id number]/[facility] #: [id number]
== END 2017-07-03 11:45 | disposition home or self-care (01) | DRG 392 ==
LOC: ED 14:25 → MED 21:59 → OBSVTOIN 06-27 15:21
PROVIDERS: ADMIT Hospitalist; ATTEND Internal Medicine
PROC: 0DB98ZX Excision of Duodenum, Via Natural or Artificial Opening Endoscopic, Diagnostic (ICD-10-PCS; principal; 2017-06-30)
PROC: 0DB68ZX Excision of Stomach, Via Natural or Artificial Opening Endoscopic, Diagnostic (ICD-10-PCS; 2017-06-30)
DX: R10.9 Unspecified abdominal pain (principal); N17.9 Acute kidney failure, unspecified; K26.9 Duodenal ulcer, unspecified as acute or chronic, without hemorrhage or perforation; K50.00 Crohn's disease of small intestine without complications; E87.1 Hypo-osmolality and hyponatremia; N39.0 Urinary tract infection, site not specified; Z68.1 Body mass index [BMI] 19.9 or less, adult; F17.210 Nicotine dependence, cigarettes, uncomplicated; F32.9 Major depressive disorder, single episode, unspecified; F41.9 Anxiety disorder, unspecified; G89.29 Other chronic pain; M54.9 Dorsalgia, unspecified; E86.0 Dehydration; R40.2412 Glasgow coma scale score 13-15, at arrival to emergency department; R63.4 Abnormal weight loss; B96.89 Other specified bacterial agents as the cause of diseases classified elsewhere; D72.829 Elevated white blood cell count, unspecified; N83.201 Unspecified ovarian cyst, right side; Z80.9 Family history of malignant neoplasm, unspecified; Z82.49 Family history of ischemic heart disease and other diseases of the circulatory system; Z91.5 Personal history of self-harm; Z87.442 Personal history of urinary calculi; Z87.01 Personal history of pneumonia (recurrent); Z83.49 Family history of other endocrine, nutritional and metabolic diseases; Z91.041 Radiographic dye allergy status; Z88.0 Allergy status to penicillin; Z88.5 Allergy status to narcotic agent; Z88.6 Allergy status to analgesic agent; Z88.8 Allergy status to other drugs, medicaments and biological substances; Z90.721 Acquired absence of ovaries, unilateral; Z86.711 Personal history of pulmonary embolism; Z86.718 Personal history of other venous thrombosis and embolism; Z90.49 Acquired absence of other specified parts of digestive tract; Z93.2 Ileostomy status; E86.1 Hypovolemia
CPT/HCPCS: 36415; 71020; 71250; 74020; 74176; 80048; 80053; 81003; 81015; 82533; 82550; 82553; 82607; 82941; 83605; 83690; 83735; 83880; 83921; 84145; 84443; 84484; 85025; 85027; 86140; 87040; 87077; 87086; 87186; 87502; 87641; 88305; 93005; 99156; 99157; A9270-GY; J0696; J1170; J1644; J2250; J2310; J2405; J3010; J3370; J3475

== ENCOUNTER 2017-11-08 21:23 | Emergency (ER) | payer OTHER, MEDICARE ==
[2017-11-08] MEDS ORDERED: Ketorolac INJ* 60 MG/2 ML VIAL IM ONE (23:01)
[2017-11-08] MEDS ORDERED: cefTRIAXone VIAL(*) 1,000 MG VIAL IM ONE (23:07)
--- NOTE | 2017-11-08 23:25 | ED ---
Lower Extremity - HPI Summary HPI Summary: Patient is an otherwise healthy 47-year-old female presenting to the ED with right lower extremity erythema, warmth, scaly skin and exquisite tenderness with +3 edema. She states she believed she had a bug bite to the right lateral side of the lower extremity on . She first noticed the redness late on night (2 days ago), and endorses diffuse swelling, erythema, and warmth this morning. She endorses 10/ 10 pain and states she is unable to ambulate on it. Patient is a drug abuser and is currently on methadone. She is not a diabetic. Past medical history includes 2 prior PEs, however she is not taking blood thinners. She denies any fevers, sweats, chills. Denies any numbness or tingling. - History of Current Complaint Chief Complaint: EDExtremityLower Stated Complaint: RT LEG SWOLLEN Hx Obtained From: Patient Onset of Pain: Hours Onset/Duration: Hours Severity Initially: Severe Severity Currently: Severe Pain Intensity: 8 Pain Scale Used: 0-10 Numeric Timing: Constant Location: Is Discrete @ - Right lower extremity Associated Signs And Symptoms: Positive: Swelling, Redness Aggravating Factor(s): Standing, Ambulation Alleviating Factor(s): Rest Able to Bear Weight: Yes - Risk Factors Gout Risk Factors: Negative DVT Risk Factors: Prior PE, Recent Trauma Septic Arthritis Risk Factor: Negative - Allergies/Home Medications Allergies/Adverse Reactions: Allergies Allergy/AdvReac Type Severity Reaction Status Date / Time acetaminophen [From Tylenol] Allergy Rash Verified 11/08/17 21:28 benzocaine Allergy Anaphylatic Verified 11/08/17 21:28 Shock cyclobenzaprine Allergy Rash Verified 11/08/17 21:28 [From Flexeril] fentanyl Allergy Rash Verified 11/08/17 21:28 Iodinated Contrast- Oral and Allergy Rash Verified 11/08/17 21:28 IV Dye morphine Allergy Rash Verified 11/08/17 21:28 Penicillins Allergy Rash Verified 11/08/17 21:28 patch Allergy Rash Uncoded 11/08/17 21:28 PMH/Surg Hx/FS Hx/Imm Hx Previously Healthy: Yes Endocrine/Hematology History: Reports: Hx Blood Transfusions, Hx Anemia Cardiovascular History: Reports: Hx Deep Vein Thrombosis, Hx Embolism, Hx Hypotension, Other Cardiovascular Problems/Disorders - Pericarditis Respiratory History: Reports: Hx Pulmonary Embolism Comment Only: Other Respiratory Problems/Disorders - HX OF PE X2 GI History: Reports: Hx Crohn's Disease, Hx Obstructive Bowel, Hx Ileostomy - Ileostomy History: Reports: Hx Kidney Infection, Hx Kidney Stones Musculoskeletal History: Reports: Hx Back Problems - sciatic nerve issues Sensory History: Denies: Hx Contacts or Glasses, Hx Hearing Aid Opthamlomology History: Denies: Hx Contacts or Glasses Psychiatric History: Reports: Hx Anxiety - Controlled w meds, Hx Depression - "long time ago", Hx Suicide Attempt - once - Cancer History Hx Chemotherapy: No - Surgical History Surgery Procedure, Year, and Place: LEFT OOPHORECTOMY 2006. CHOLECYSTECTOMY. APPENDECTOMY. TOTAL COLECTOMY with LUQ ILEOSTOMY 2001. CROHNS SURGERY- multiple abd surgeries (prior to 2001) Hx Anesthesia Reactions: No - Immunization History Date of Tetanus Vaccine: Unknown Date of Influenza Vaccine: has not received Hx Pertussis Vaccination: No Immunizations Up to Date: Unable to Obtain/Confirm Infectious Disease History: No Infectious Disease History: Reports: Hx Clostridium Difficile, Hx of Known/ Suspected MRSA Denies: Hx Hepatitis, Hx Human Immunodeficiency Virus (HIV), Traveled Outside the [place] in Last 30 Days - Family History Known Family History: Positive: None - reviewed & noncontributory, Cardiac Disease - maternal grandmother, Diabetes - father, uncle, maternal grandmother , Other - Grandparents: [place] - Social History Occupation: Unemployed Lives: With Family Alcohol Use: None Hx Substance Use: No Substance Use Type: Reports: None Hx Tobacco Use: Yes Smoking Status (MU): Light Every Day Tobacco Smoker Type: Cigarettes Amount Used/How Often: 1/2ppd Have You Smoked in the Last Year: Yes Review of Systems Constitutional: Negative Negative: Fever, Chills, Fatigue, Skin Diaphoresis Eyes: Negative Cardiovascular: Negative Respiratory: Negative Genitourinary: Negative Positive: no symptoms reported, see HPI Positive: Myalgia Positive: Other - erythema, warmth, tenderness, swelling to the right lower extremity mid calf to foot with +3 edema in the dorsum of the foot Neurological: Negative All Other Systems Reviewed And Are Negative: Yes Physical Exam Triage Information Reviewed: Yes Vital Signs On Initial Exam: Initial Vitals Temp Pulse Resp BP Pulse Ox 98.6 F 110 20 125/69 99 11/08/17 21:28 11/08/17 21:28 11/08/17 21:28 11/08/17 21:28 11/08/17 21:28 Vital Signs Reviewed: Yes Appearance: Positive: Well-Appearing, No Pain Distress, Well-Nourished Skin: Positive: Warm, Skin Color Reflects Adequate Perfusion, Other - See above Head/Face: Positive: Normal Head/Face Inspection Eyes: Positive: EOMI, ALEKSANDRA, Conjunctiva Clear Neck: Positive: Supple, Nontender, No Lymphadenopathy Respiratory/Lung Sounds: Positive: Clear to Auscultation, Breath Sounds Present Cardiovascular: Positive: Normal, RRR, Pulses are Symmetrical in both Upper and Lower Extremities Musculoskeletal: Positive: Strength/ROM Intact Neurological: Positive: Speech Normal Psychiatric: Positive: Normal, Affect/Mood Appropriate Diagnostics - Vital Signs Vital Signs Temp Pulse Resp BP Pulse Ox 11/08/17 23:00 76 81 11/08/17 21:28 98.6 F 110 20 125/69 99 - Laboratory Result Diagrams: 11/08/17 23:20 11/08/17 23:20 Lab Statement: Any lab studies that have been ordered have been reviewed, and results considered in the medical decision making process. Lower Extremity Course/Dx - Course Course Of Treatment: During the course of treatment, the patient is evaluated for possible cellulitis versus DVT. She was sent here by urgent care to rule out a DVT due to her past medical history of 2 PEs in the past, and patient does not currently take any anticoagulation. She is a drug abuser and possibly drug injector currently, however she denies this. She is currently on methadone. There is a small puncture wound to the right lateral lower extremity resembling a needlestick or bug bite which is the likely etiology of her symptoms. X-ray obtained and read by Dr. Lott and myself as swelling, otherwise normal x-ray with no acute fractures or other after maladies. Labs obtained which show an elevated white count at 21.9 with a left shift, however she is afebrile and does not meet septic criteria. Ultrasound obtained which shows the right common femoral, superficial femoral, popliteal and posterior tibial veins are patent. There is partially occlusive thrombus in the duplicated right peroneal veins. Dr. Perez (overnight radiologist) at 12:50 PM with results. I have advised the patient to take ibuprofen for the swelling as well as elevate the leg above heart with ice. She is given Augmentin twice daily 10 days for diffuse cellulitis. The occlusive thrombus in the right peroneal vein likely more SVT and possibly from a self-inflicted wound. Discussed the case with Dr. Lott who advised Augmentin as this is more likely to cover pathogens in the foot as well as placing her on a short course of aspirin for it the ED SVT. Patient is made aware of these results and is okay with plan and discharge. I have given her 1 day Augmentin as she is unable to get to the pharmacy tomorrow. She is given 1 g Rocephin in the ED. She is not given pain medicine due to her history, however she is offered Toradol and declines. - Diagnoses Provider Diagnoses: Cellulitis Discharge - Discharge Plan Condition: Stable Disposition: HOME Prescriptions: Amoxicillin/Clavulanate TAB* [Augmentin TAB 875*] 875 mg PO BID #20 tab Ibuprofen 600 mg PO TID PRN #30 tablet MDD 3 PRN Reason: Pain Patient Education Materials: Cellulitis (ED) Referrals: Nadeem CASTILLO,Joshua Montes [Primary Care Provider] - Additional Instructions: Ibuprofen 600mg 3 times daily Baby aspirin 81 mg once daily 5 days Elevate the leg as much as possible Ice to the area Augmentin twice daily 10 days Continue this medication until it is gone, despite if you begin to feel better Images - Images Full Body (No Head): 1 - Location of the erythema, warmth, tenderness, swelling
[2017-11-08 23:57] LABS: ABS Basophils 0.1 10^3/ul (0-0.2); ABS Eosinophils 0.1 10^3/ul (0-0.6); ABS Lymphocytes 1.1 10^3/ul (1.0-4.8); ABS Monocytes 1.2 10^3/ul (0-0.8); ABS Neutrophils 19.4 10^3/ul (1.5-7.7); ABS Nucleated RBC 0 10^3/ul; Eosinophil % 0.3 % (0-6); Hematocrit 29 % (35-47); Hemoglobin 9.7 g/dl (12.0-16.0); Lymphocyte % 4.9 % (25-47); Mean Corpuscular HGB Conc 33 g/dl (31-36); Mean Corpuscular Hemoglobin 28 pg (27-31); Mean Corpuscular Volume 84 fL (80-97); Mean Platelet Volume 8 um3 (7.4-10.4); Nucleated Red Blood Cells % 0.1; Platelet Count 321 10^3/ul (150-450); Red Blood Count 3.48 10^6/ul (4.0-5.4); Red Cell Distribution Width 14 % (10.5-15); White Blood Count 21.9 10^3/ul (3.5-10.8)
[2017-11-09 00:15] LABS: EGFR Non-African American 34.9 (>60)
[2017-11-09] MEDS ORDERED: Lidocaine 1%* 5 ML VIAL ONE (01:05)
[2017-11-09 01:58] VITALS: BP 105/57
--- NOTE | 2017-11-09 07:15 | RAD ---
INDICATION: Ankle pain. Injury. COMPARISON: None TECHNIQUE: AP, lateral, and oblique views were obtained. FINDINGS: There is mild diffuse soft tissue swelling. There is no acute fracture or dislocation.. IMPRESSION: MILD DIFFUSE SOFT TISSUE SWELLING
--- NOTE | 2017-11-09 07:16 | RAD ---
INDICATION: Right foot pain. Swelling. COMPARISON: None TECHNIQUE: AP, lateral, and oblique views were obtained. FINDINGS: There is mild diffuse soft tissue swelling. This particularly prominent over the dorsum of foot. There is no acute fracture or dislocation. IMPRESSION: SOFT TISSUE SWELLING. NO ACUTE BONY FINDINGS
--- NOTE | 2017-11-09 07:22 | RAD ---
INDICATION: Pain and swelling. COMPARISON: Pain and swelling TECHNIQUE: Duplex interrogation of the Lowerextremity was performed. FINDINGS: Deep veins: The common femoral, great saphenous, profunda femoris, proximal, mid, and distal deep femoral, popliteal, posterior tibial, and peroneal veins are interrogated. There is thrombosis of one of the peroneal veins. This is age indeterminate. The remaining deep venous structures demonstrate normal compressibility, augmentation, and phasic flow. Superficial veins: There are no findings of superficial thrombophlebitis. Popliteal fossa:There is no evidence of a popliteal cyst. Soft tissues:There are no soft tissue abnormalities. IMPRESSION: AGE INDETERMINATE THROMBOSIS OF ONE OF THE PAIRED PERONEAL VEINS.
== END 2017-11-09 02:10 | disposition home or self-care (01) ==
LOC: ED 21:23
DX: L03.90 Cellulitis, unspecified (principal); M79.89 Other specified soft tissue disorders; F17.210 Nicotine dependence, cigarettes, uncomplicated
CPT/HCPCS: 36415; 80053; 83605; 85025; 85652; 86140; 99283; J0696

== ENCOUNTER 2017-12-27 17:57 | Emergency (ER) | payer MEDICARE, OTHER ==
[2017-12-27 20:11] VITALS: BP 144/85
== END 2017-12-27 20:47 | disposition left against medical advice (07) ==
LOC: ED 17:57
DX: R10.9 Unspecified abdominal pain (principal); Z53.21 Procedure and treatment not carried out due to patient leaving prior to being seen by health care provider

== ENCOUNTER 2018-04-18 13:29 | Inpatient (IN) | payer OTHER, MEDICARE ==
[2018-04-18] MEDS ORDERED: NS 0.9% 1000 ML* 1,000 ML IV ONE (17:20)
[2018-04-18] MEDS ORDERED: Ondansetron INJ* 2 MG/ML VIAL IV ONE (17:22)
[2018-04-18] MEDS ORDERED: HYDROmorphone INJ* 1 MG/ML CARPUJECT SYRINGE IV ONE (17:22)
--- NOTE | 2018-04-18 17:37 | ED ---
Abdominal Pain/Female - HPI Summary HPI Summary: This is scribe Arsenio Johnson documenting for attending Marcos Saab MD. A 47 y/o female presents to ED c/o abdominal pain reaching 910 in severity. In the ED room, the patient has a pulse of 74 BPM, O2 saturation of 100% and blood pressure of 112/88. As per triage, "Pt c/o abd pain, nausea, vomiting, and chest pain. Pt says she is unable to keep her meds for crohn's down". According to the patient, she is experiencing diffuse abdominal pain coupled with nausea and vomiting for the pat couple days. She noted that she cannot take her medication for her Crohn's disease or anything for that matter down. She initally started feeling kind of nauseated, so she ate and drink water, but then she started to feel "crappy". From that moment on, she has been vomiting and experiences abdominal pain. Pt noted she has much scar tissue in her abdomen. PMHx of abdominal surgery (7 times) and Crohn's. I, Dr. Marcos Saab, personally performed the services described in this documentation as scribed in my presence and it is both accurate and complete. - History of Current Complaint Chief Complaint: EDAbdPain Stated Complaint: VOMITTING DIZZY Time Seen by Provider: 04/18/18 16:51 Hx Obtained From: Patient Onset/Duration: Sudden Onset, Lasting Days, Still Present Timing: Constant Severity Initially: Severe Severity Currently: Severe Pain Intensity: 9 Pain Scale Used: 0-10 Numeric Location: Diffuse Radiates: No Aggravating Factor(s): Nothing Alleviating Factor(s): Nothing Associated Signs and Symptoms: Positive: Nausea, Vomiting Allergies/Adverse Reactions: Allergies Allergy/AdvReac Type Severity Reaction Status Date / Time acetaminophen [From Tylenol] Allergy Rash Verified 04/18/18 16:31 benzocaine Allergy Anaphylatic Verified 04/18/18 16:31 Shock cyclobenzaprine Allergy Rash Verified 04/18/18 16:31 [From Flexeril] fentanyl Allergy Rash Verified 04/18/18 16:31 Iodinated Contrast- Oral and Allergy Rash Verified 04/18/18 16:31 IV Dye morphine Allergy Rash Verified 04/18/18 16:31 Penicillins Allergy Rash Verified 04/18/18 16:31 patch Allergy Rash Uncoded 12/27/17 18:12 PMH/Surg Hx/FS Hx/Imm Hx Endocrine/Hematology History: Reports: Hx Blood Transfusions, Hx Anemia Cardiovascular History: Reports: Hx Deep Vein Thrombosis, Hx Embolism, Hx Hypotension, Other Cardiovascular Problems/Disorders - Pericarditis Respiratory History: Reports: Hx Pulmonary Embolism Comment Only: Other Respiratory Problems/Disorders - HX OF PE X2 GI History: Reports: Hx Crohn's Disease, Hx Obstructive Bowel, Hx Ileostomy - Ileostomy History: Reports: Hx Kidney Infection, Hx Kidney Stones Musculoskeletal History: Reports: Hx Back Problems - sciatic nerve issues Sensory History: Denies: Hx Contacts or Glasses, Hx Hearing Aid Opthamlomology History: Denies: Hx Contacts or Glasses Psychiatric History: Reports: Hx Anxiety - Controlled w meds, Hx Depression - "long time ago", Hx Suicide Attempt - once - Cancer History Hx Chemotherapy: No - Surgical History Surgery Procedure, Year, and Place: LEFT OOPHORECTOMY 2006. CHOLECYSTECTOMY. APPENDECTOMY. TOTAL COLECTOMY with LUQ ILEOSTOMY 2001. CROHNS SURGERY- multiple abd surgeries (prior to 2001) Hx Anesthesia Reactions: No - Immunization History Date of Tetanus Vaccine: Unknown Date of Influenza Vaccine: has not received Infectious Disease History: No Infectious Disease History: Reports: Hx Clostridium Difficile, Hx of Known/ Suspected MRSA Denies: Hx Hepatitis, Hx Human Immunodeficiency Virus (HIV), Traveled Outside the [place] in Last 30 Days - Family History Known Family History: Positive: Cardiac Disease - maternal grandmother, Diabetes - father, uncle, maternal grandmother , Other - Grandparents: [place] - Social History Alcohol Use: None Hx Substance Use: No Substance Use Type: Reports: None Hx Tobacco Use: Yes Smoking Status (MU): Light Every Day Tobacco Smoker Type: Cigarettes Amount Used/How Often: 1/2ppd Have You Smoked in the Last Year: Yes Review of Systems Negative: Fever Positive: Abdominal Pain, Vomiting, Nausea All Other Systems Reviewed And Are Negative: Yes Physical Exam - Summary Physical Exam Summary: Appearance: The patient is well-nourished in no acute distress and in no acute pain. Skin: The skin is warm and dry and skin color reflects adequate perfusion. HEENT: The head is normocephalic and atraumatic. The pupils are equal and reactive. The conjunctivae are clear and without drainage. Nares are patent and without drainage. Mouth reveals moist mucous membranes and the throat is without erythema and exudate. The external ears are intact. The ear canals are patent and without drainage. The tympanic membranes are intact. Neck: The neck is supple with full range of motion and non-tender. There are no carotid bruits. There is no neck vein distension. Respiratory: Chest is non-tender. Lungs are clear to auscultation and breath sounds are symmetrical and equal. Cardiovascular: Heart is regular rate and rhythm. There is no murmur or rub auscultated. There is no peripheral edema and pulses are symmetrical and equal. Abdomen: Diffuse abdominal tenderness. There are active bowel sounds heard in all four quadrants and there is no organomegaly palpated. Musculoskeletal: There is no back tenderness noted. Extremities are non-tender with full range of motion. There is good capillary refill. There is no peripheral edema or calf tenderness elicited. Neurological: Patient is alert and oriented to person, place and time. The patient has symmetrical motor strength in all four extremities. Cranial nerves are grossly intact. Deep tendon reflexes are symmetrical and equal in all four extremities. Psychiatric: The patient has an appropriate affect and does not exhibit any anxiety or depression. Triage Information Reviewed: Yes Vital Signs On Initial Exam: Initial Vitals Temp Pulse Resp BP Pulse Ox 98.4 F 83 16 132/94 98 04/18/18 13:34 04/18/18 13:34 04/18/18 13:34 04/18/18 13:34 04/18/18 13:34 Vital Signs Reviewed: Yes Diagnostics - Vital Signs Vital Signs Temp Pulse Resp BP Pulse Ox 04/18/18 17:06 73 100 04/18/18 16:58 73 112/88 100 04/18/18 16:29 71 100 04/18/18 16:27 73 149/106 100 04/18/18 16:16 97.8 F 76 12 125/78 100 04/18/18 13:34 98.4 F 83 16 132/94 98 - Laboratory Result Diagrams: 04/18/18 17:27 04/18/18 17:27 Lab Statement: Any lab studies that have been ordered have been reviewed, and results considered in the medical decision making process. - EKG 1716 Cardiac Rate: NL - 79 BPM EKG Rhythm: Sinus Rhythm EKG Interpretation: Marketly prolonged QTc Abdominal Pain Fem Course/Dx - Course Course Of Treatment: Ms. Key presented to the emergency department with several days of vomiting and abdominal pain. She's not sure if this is the beginning of a Crohn's flareup but is concerned because she is unable to keep her medications down. She was diffusely tender in her abdomen and clinically dehydrated. She was given IV fluids and labs were obtained revealing that she was quite hyponatremic at 118. IV normal saline was continued and the hospitalists were contacted for admission. - Diagnoses Provider Diagnoses: Hypernatremia, Intractable vomiting - Provider Notifications Discussed Care Of Patient With: Katty Zhu Time Discussed With Above Provider: 18:47 Instructed by Provider To: Other - Accepts for admission. Discharge - Sign-Out/Discharge Documenting (check all that apply): Patient Departure - ADMIT - Discharge Plan Condition: Stable Disposition: ADMITTED TO [facility] Referrals: Nadeem CASTILLO,Joshua Montes [Primary Care Provider] - - Billing Disposition and Condition Condition: STABLE Disposition: Admitted to [facility]
[2018-04-18 17:44] LABS: ABS Basophils 0.1 10^3/ul (0-0.2); ABS Eosinophils 0.2 10^3/ul (0-0.6); ABS Monocytes 0.7 10^3/ul (0-0.8); ABS Neutrophils 7.9 10^3/ul (1.5-7.7); ABS Nucleated RBC 0 10^3/ul; Eosinophil % 1.7 % (0-6); Hematocrit 38 % (35-47); Lymphocyte % 10.3 % (25-47); Mean Corpuscular HGB Conc 34 g/dl (31-36); Mean Corpuscular Hemoglobin 28 pg (27-31); Mean Corpuscular Volume 81 fL (80-97); Mean Platelet Volume 7.4 um3 (7.4-10.4); Nucleated Red Blood Cells % 0.1; Platelet Count 426 10^3/ul (150-450); Red Blood Count 4.71 10^6/ul (4.00-5.40); Red Cell Distribution Width 16 % (10.5-15); White Blood Count 9.8 10^3/ul (3.5-10.8)
[2018-04-18 18:15] LABS: EGFR Non-African American 37.8 (>60)
[2018-04-18] MEDS ORDERED: busPIRone TAB* 5 MG PO PRN (20:37)
[2018-04-18] MEDS ORDERED: PROCHLORPERAZINE INJ 5 MG/ML 2 ML VIAL IV PRN (20:40)
[2018-04-18] MEDS ORDERED: Ondansetron INJ* 2 MG/ML VIAL IV PRN (20:40)
[2018-04-18] MEDS ORDERED: NS 0.9% 1000 ML* 1,000 ML IV SCH (20:45)
[2018-04-18] MEDS ORDERED: HYDROmorphone INJ* 2 MG/ML CARPUJECT SYRINGE IV SLOW PU PRN (20:46)
[2018-04-18 21:22] LABS: EGFR Non-African American 40.3 (>60)
[2018-04-18] MEDS ORDERED: NS 0.9% w/ 40 Meq KCL 1000 ML* 1,000 ML IV SCH (22:00)
[2018-04-18] MEDS: KCL 20 MEQ/100 ML IVPREMIX* 20 MEQ/100 ML BAG IV SCH (22:05)
[2018-04-18] MEDS: Omeprazole CAP* 20 MG PO SCH (22:05)
[2018-04-18 22:40] LABS: Urine Appearance Clear; Urine Blood 1+ (Negative); Urine Color Straw; Urine Ketones Negative (Negative); Urine Protein Negative (Negative); Urine Red Blood Cell Trace(0-2/hpf) (Absent); Urine Specific Gravity 1.003 (1.010-1.030); Urine Urobilinogen Negative (Negative); Urine White Blood Cell 3+(>20/hpf) (Absent)
--- NOTE | 2018-04-18 22:55 | HP ---
CC: Dr. Joshua Silver* [facility] MEDICINE HISTORY AND PHYSICAL: DATE OF ADMISSION: 04/18/18 PRIMARY CARE PHYSICIAN: Dr. Joshua Silver. ATTENDING PHYSICIAN: Dr. Mingo Mittal* (dictation provided by Allyson Hurley NP) . CHIEF COMPLAINT: Nausea, vomiting, abdominal pain. HISTORY OF PRESENT ILLNESS: Ms. Key is a 47-year-old female with a past medical history of Crohn's disease with multiple abdominal surgeries, now with colectomy and ileostomy as well as chronic low back pain who presents to the hospital today with increased stool in colostomy, nausea, vomiting, inability to keep food down and abdominal pain. The patient has had multiple previous admissions, though none recently for similar complaint. She states that these symptoms started on Friday or Friday of this week when she noted that she was having increased ostomy output. This was too unusual for her, so she hoped that it would pass, however in the past 2 days she began feeling worse. She is now having nausea with vomiting. She is unable to keep anything down per her report. She states that when she is able to keep a pill down, it comes out in her ostomy bag whole and undigested. She reports feeling dizzy on standing. She has felt short of breath with activity and also reports a heaviness in her chest. She denies any fever. In the emergency room, Ms. Key had labs, which showed sodium is 118, which is low for her even though she has demonstrated some hyponatremia when ill in the past. Her creatinine is 1.49, which has been keeping with her baseline. She has no leukocytosis. Her heart rate is in the 60s. Her blood pressure is stable. She is afebrile. PAST MEDICAL HISTORY: 1. Crohn's disease with colectomy and ileostomy. 2. Chronic low back pain, on methadone. 3. Anxiety and depression. 4. DVT and PE history. 5. Left oophorectomy. The patient has had gastroenterological workups, multiple CTs of the abdomen in the past with similar symptoms showing no acute abnormalities. Her last visit here back in June 2017, she had a consultation with Dr. Mcguire and an upper endoscopy with Dr. Zacarias. That upper endoscopy showed no etiology for her pain or weight loss, which she was demonstrating at that time. MEDICATIONS: Outpatient are: 1. Bupropion XL 150 mg p.o. daily. 2. Ibuprofen 600 mg p.o. t.i.d. p.r.n. 3. Methadone 10 mg p.o. t.i.d. 4. Promethazine 25 mg p.o. q.6 hours 5. Zolpidem 12.5 mg p.o. at bedtime p.r.n. 6. BuSpar 7.5 mg p.o. b.i.d. p.r.n. 7. Fluoxetine 40 mg p.o. daily. 8. Omeprazole 20 mg p.o. b.i.d. ALLERGIES: ACETAMINOPHEN, BENZOCAINE, CYCLOBENZAPRINE, FENTANYL, ORAL AND IV CONTRAST DYE, MORPHINE, PENICILLINS. PHYSICAL EXAMINATION GENERAL: Ms. Key is lying on the bed with her at the bedside. She is in no acute distress. VITAL SIGNS: Temperature 98.1, pulse rate 67, respiratory rate 18, O2 saturation 100% on room air, blood pressure 133/81. LUNGS: Clear to auscultation bilaterally with no accessory muscle use and good aeration. HEART: S1, S2. No murmur, rub, or gallop, and regular. ABDOMEN: Soft. There is tenderness throughout. Bowel sounds are positive. She has a stoma that is pink and beefy. She has liquid brown stool in the ostomy bag. EXTREMITIES: No cyanosis or edema. NEURO: She is alert. She is oriented x3. She moves all extremities equally. There is no facial asymmetry or focal weakness. Extraocular movements are intact. SKIN: Intact. LABORATORY DATA: WBC 9.8, hemoglobin 13.5, hematocrit 38, platelet count 426. Sodium 118, potassium is hemolyzed and unprocessed, chloride 81, bicarbonate 23 , BUN 9, creatinine 1.49, glucose 92. CRP 6.53. Beta-hCG is negative. ASSESSMENT AND PLAN: Ms. Key is a 47-year-old female with a past medical history of Crohn's disease with multiple surgeries now with ileostomy with frequent admissions in the past for nausea, vomiting, abdominal pain, and increased ostomy output without clear finding. Our plans are for inpatient admission as I expect her length of stay to be greater than 2 days for the followin. Nausea, vomiting, abdominal pain: The patient has a long-term history without clear findings. My plan for now will be for symptomatic management and to consult with Gastroenterology tomorrow. I am not calling Dr. Hull this evening as I do not see an indication for urgent consultation, but this can be reviewed with her in the morning. In the meantime, the patient will have Compazine and Zofran available p.r.n. for nausea. She will have IV fluids and she will have Dilaudid for pain control. 2. Hyponatremia. The patient has a significant hyponatremia today with a sodium of 118. I think this is secondary to her gastrointestinal complaints. She has been given 1 L of normal saline in the emergency room and a repeat BMP is pending now. Further treatment will be based on the evaluation of the sodium level in response to normal saline. I have ordered urine sodium as well , though urine is pending. The patient is on bupropion and fluoxetine, which both can contribute to hyponatremia; we will plan to hold those for now. She can continue with BuSpar. 3. Shortness of breath, chest discomfort. The patient has had similar complaints in the past when she has felt unwell. I will add on troponin and check a chest x- ray. Her vitals are stable. She is not requiring oxygen at this time. Her EKG shows no ischemia. 4. Anxiety, depression. Plan to continue BuSpar. We will hold Wellbutrin and Prozac for now. 5. DVT prophylaxis with heparin subcu. 6. Code status is full code. TIME SPENT: Approximately 60 minutes were spent on the admission of this patient, more than half the time spent with the patient at the bedside reviewing the events leading up to this hospitalization, performing the physical examination, and reviewing the plan of care. ALLYSON HURLEY, RADHA [id number]/CPS #: [id number] WILLIAM
[2018-04-18] MEDS: HYDROmorphone INJ* 0.5 MG/0.5 ML SYRINGE IV SLOW PU PRN (23:45)
[2018-04-19] MEDS: KCL 20 MEQ/100 ML IVPREMIX* 20 MEQ/100 ML BAG IV SCH (00:29)
[2018-04-19] MEDS: HYDROmorphone INJ* 0.5 MG/0.5 ML SYRINGE IV SLOW PU PRN ×5 (03:47→21:33)
--- NOTE | 2018-04-19 06:46 | RAD ---
INDICATION: Shortness of breath. COMPARISON: Comparison is made with prior chest x-ray study from June 26, 2017. TECHNIQUE: A portable view of the chest was obtained. FINDINGS: Cardiac and mediastinal contours appear to be within normal limits. The lungs are clear. No pleural effusion is seen. IMPRESSION: NO EVIDENCE FOR ACUTE DISEASE.
[2018-04-19] MEDS: Omeprazole CAP* 20 MG PO SCH ×2 (07:54→19:59)
[2018-04-19] MEDS ORDERED: FLUoxetine CAP* 20 MG PO SCH (09:00)
[2018-04-19] MEDS ORDERED: buPROPion SR TAB.SR* 150 MG PO SCH (09:00)
--- NOTE | 2018-04-19 09:55 | PN ---
Subjective Date of Service: 04/19/18 Interval History: Feels "okay" today. Tolerated chicken broth for breakfast. Still a little nausea but no vomiting. Pain is in both lower quadrants. No dysuria, no frequency, no flank pain, no fevers. Objective Active Medications: Buspirone HCl (Buspar Tab*) 7.5 mg PO BID PRN PRN Reason: ANXIETY Hydromorphone HCl (Dilaudid Inj*) 1 mg IV SLOW PU Q4H PRN PRN Reason: PAIN Last Admin: 04/19/18 07:55 Dose: 1 mg Potassium Chloride/Sodium Chloride (Ns 0.9% W/ 40 Meq Kcl 1000 Ml*) 1,000 mls @ 125 mls/hr IV PER RATE [facility] Last Admin: 04/19/18 03:47 Dose: 125 mls/hr Omeprazole (Prilosec Cap*) 20 mg PO BID [facility] Last Admin: 04/19/18 07:54 Dose: 20 mg Ondansetron HCl (Zofran Inj*) 4 mg IV Q6H PRN PRN Reason: NAUSEA Prochlorperazine Edisylate (Compazine Inj*) 5 mg IV Q6H PRN PRN Reason: NAUSEA/VOMITING Vital Signs - 8 hr 04/19/18 04/19/18 04/19/18 03:21 03:47 05:42 Temperature 98.0 F Pulse Rate 66 Respiratory 16 16 16 Rate Blood Pressure 116/77 (mmHg) O2 Sat by Pulse 100 Oximetry 04/19/18 04/19/18 07:28 07:55 Temperature 98.0 F Pulse Rate 65 Respiratory 17 18 Rate Blood Pressure 121/72 (mmHg) O2 Sat by Pulse 100 Oximetry Oxygen Devices in Use Now: None Appearance: alert, well appearing, resting in bed Eyes: No Scleral Icterus Ears/Nose/Mouth/Throat: - - few missing teeth Neck: NL Appearance and Movements; NL JVP, - - no adenopathy Respiratory: Symmetrical Chest Expansion and Respiratory Effort, Clear to Auscultation Cardiovascular: NL Sounds; No Murmurs; No JVD, RRR Abdominal: - - ileostomy bag full of liquid. bowel sounds present. tender to deep palpation in both lower quadrants. Extremities: No Edema, - - no joint inflammation Skin: No Rash or Ulcers Neurological: Alert and Oriented x 3 Result Diagrams: 04/18/18 17:27 08/12/18 06:45 Assess/Plan/Problems-Billing Assessment: Ms. Key is a 47 year old lady with history of crohn's disease s/p colectomy and ileostomy who presented 04/18 with abdominal pain and nausea and was found to have hyponatremia - Patient Problems (1) Abdominal pain Current Visit: No Status: Acute Priority: High Code(s): R10.9 - UNSPECIFIED ABDOMINAL PAIN SNOMED Code(s): 59771463 Comment: doubt crohn's flare in setting of colostomy, also association with nausea would be an unusual presentation ? related to UTI --> pain is in both lower quadrants also concerning for SBO given history of abdominal surgeries and upper GI complaints I am consulting Dr. Hull today may consider abodminal imaging, will await her consult given many many CTs she has been exposed to, and no urgent need (2) Crohn disease Current Visit: Yes Status: Acute Code(s): K50.90 - CROHN'S DISEASE, UNSPECIFIED, WITHOUT COMPLICATIONS SNOMED Code(s): 19161900 Comment: s/p colectomy and ileostomy (3) CKD (chronic kidney disease) Current Visit: Yes Status: Acute Code(s): N18.9 - CHRONIC KIDNEY DISEASE, UNSPECIFIED SNOMED Code(s): 077055226 Comment: slightly above baseline continue IVF (4) UTI (urinary tract infection) Current Visit: No Status: Acute Comment: start ceftriaxone today await cultures (5) Hyponatremia Current Visit: No Status: Acute Code(s): E87.1 - HYPO-OSMOLALITY AND HYPONATREMIA SNOMED Code(s): 16738287 Comment: likely hypovolemic hypo-osmolar improving with normal saline at too quickly of a rate--will slow down rate of NS and recheck this afternoon
[2018-04-19] MEDS ORDERED: NS 0.9% w/ 40 Meq KCL 1000 ML* 1,000 ML IV SCH (10:00)
[2018-04-19] MEDS: NS 0.9% w/ 40 Meq KCL 1000 ML* 1,000 ML IV SCH (10:17)
[2018-04-19] MEDS: cefTRIAXone(*) 1 GM in NS 0.9% 50 ML* 50 ML IVPB SCH (10:58)
[2018-04-19] MEDS ORDERED: KCL 20 MEQ/100 ML IVPREMIX* 20 MEQ/100 ML BAG IV SCH (15:00)
[2018-04-19] MEDS ORDERED: Magnesium CITRATE* 300 ML BTL PO ONE (16:00)
--- NOTE | 2018-04-19 17:20 | CONS ---
CC: Dr. Zhu; Ros Hull DO; Dr. Joshua Silver GASTROENTEROLOGY CONSULTATION: DATE OF CONSULTATION: 04/19/18 HOSPITAL PROVIDER: Dr. Dahiana Calderón. PRIMARY CARE PROVIDER: Dr. Joshua Silver. REASON FOR CONSULTATION: Nausea, vomiting, abdominal pain, and watery output in ostomy. History of Crohn's Disease. HISTORY OF PRESENT ILLNESS: Ms. Key is a 47-year-old female with a past medical history of Crohn's disease complicated by multiple abdominal surgeries due to frequent small bowel obstruction, now is with a colectomy and ileostomy. She has a history of chronic abdominal pain for which she is on methadone. She also has a history of anxiety, depression, DVT, with a history of PE, not on anticoagulation. She presented to [facility] ER with a 2-day history of [id number] lower abdominal pain with generalized fatigue, persistent nausea and emesis. She states these symptoms are similar to her previous Crohn's flares. She does take ibuprofen for pain prn. She denies recent sick contacts and antibiotic-use. She denies hematemesis, melena or bright red blood noted in the ostomy bag. She states again for the last few days she has been having normal amount of output; however, it is more watery in consistency. She continuously feels nauseous, has vomited over the last few days and has not been able to keep food down. Her medications having been coming out "whole" in the ostomy bag which has never happened. She had an EGD by Dr. Zacarias on 06/30/17 revealing small duodenal ulcers and biopsies were negative for Crohns disease. Gastrin level at that time was normal. She also had an ileoscopy by Dr. Álvarez on 08/09/17 revealing small erosions in her small bowel. She was last treated for a flare a couple years ago with Solumedrol. She is currently not on any medication for Crohn's. Today she has not had any episodes of emesis while in the hospital. She has been tolerating a clear liquid diet for now. She does complain of some mild LLQ pain radiating to her back. She was diagnosed with a urinary tract infection. On admission, her CRP was noted to be normal. She was also noted to be slightly hypokalemic and hyponatremic. Slightly elevated creatinine of 1.49 was noted on admission. While she has lost weight over the last few years, she states her weight has been stable over the last year. She denies dysphagia, odynophagia, oral ulcers, joint pains, myalgias. PAST MEDICAL HISTORY: 1. Crohn's disease with multiple abdominal surgeries due to small bowel obstructions, now with colectomy and ileostomy. 2. Chronic low back pain, on methadone. 3. Anxiety. 4. Depression. 5. DVT and PE, not on anticoagulation. PAST SURGICAL HISTORY: 1. Left oophorectomy. 2. Multiple abdominal surgeries with colectomy and ileostomy. 3. Cholecystectomy. 4. Appendectomy. HOME MEDICATIONS: 1. Bupropion. 2. Ibuprofen prn. 3. Methadone. 4. Promethazine. 5. Zolpidem. 6. BuSpar. 7. Fluoxetine. 8. Omeprazole 20 mg twice daily. ALLERGIES: ACETAMINOPHEN, BENZOCAINE, CYCLOBENZAPRINE, FENTANYL, ORAL AND IV CONTRAST, MORPHINE, PENICILLIN. FAMILY HISTORY: Denies history of gastrointestinal malignancies. Maternal grandmother with cardiac disease. Father, uncle, and maternal grandmother with diabetes. SOCIAL HISTORY: She admits to light tobacco use daily, about a half a pack per day. She denies alcohol or illicit drug use. REVIEW OF SYSTEMS: Review of systems on a 14-point scale have been reviewed. All pertinent positives and negatives have been noted above in the HPI. PHYSICAL EXAMINATION: Vital Signs: Temperature 97.9, pulse 67, respirations 18 , oxygenation 100%, blood pressure 121/71. Generally, the patient is alert and oriented x3, in no acute distress, thin appearing. HEENT: Normocephalic, atraumatic. Extraocular muscles intact. Anicteric sclerae bilaterally. Cardiovascular Exam: Regular rate and rhythm. Pulmonary Exam: Clear to auscultation bilaterally. Abdomen: Positive bowel sounds. Soft, nontender, nondistended. Ileoscopy bag is empty. Stoma appears pink and healthy. No rebound, guarding or rigidity. Extremities: No clubbing, cyanosis or edema. Warm to touch. Neurologic: No gross focal deficits are appreciated. DIAGNOSTIC STUDIES/LAB DATA: WBC 9.8, hemoglobin 13.0, hematocrit 38, platelets 426. Sodium 127, potassium 3.2, chloride 94, CO2 26, anion gap 7, BUN 8, creatinine 1.42, lactic acid 0.7, calcium 7.9. Total bilirubin 0.4, AST unknown, ALT 11, alkaline phosphatase 113. Troponin 0.00 and 0.01. CRP 6.53, total protein 7.6, albumin 3.7, lipase 29. Beta-hCG 1.81. ASSESSMENT AND PLAN: Ms. Key is a 47-year-old female with a past medical history of Crohn's disease complicated by several abdominal surgeries due to small bowel obstructions, now with colectomy and ileostomy, who presents to [facility] ER with a 2-day history of fatigue, persistent nausea, vomiting along with lower abdominal pain, watery output in ostomy and her medications are coming out as "whole" in ostomy. She states these symptoms are similar to her previous Crohn's flare. Her CRP on admission was normal. She was noted to be hyponatremic with hypokalemia, which may be secondary to her loose watery output. She denies any sick contacts, recent travels or antibiotic use. Her stool studies are currently pending. She did have an upper endoscopy performed on June 30, [address] Zacarias revealing small duodenal ulcers at that time. Her biopsies were negative for Crohn's. Her gastrin level was normal at that time. Her last ileoscopy was done by Dr. Álvarez on August 09, 2013 and revealed ulcers at that time. She is not on treatment at this time. The patient states typically when she is placed on steroids, she feels better; however, given a normal CRP and her nonspecific symptoms, it is not quite clear whether she is having a Crohn's flare or not at this time. Her last flare was about 5 years ago according to her medical records. We will go ahead and proceed forward with an upper endoscopy to check for healing of these duodenal ulcers as she has takes ibuprofen prn and re- evaluate for possible upper intestinal Crohn's. We will also perform an ileoscopy as she has not had one since 2012 to assess her ileum by following-up on the ileal ulcers seen on last examination and to ensure this is not a Crohn' s flare. We will follow up on her stool studies to rule out bacterial infection as well. In the meantime, she is on a clear liquid diet. We will refrain from abdominal imaging until the upper endoscopy and ileoscopy are performed and if etiology is still unclear. She is refusing Golytely to prepare for ileoscopy so will try a bottle of magnesium citrate. She has had numerous CT imaging in the past. She is currently on a PPI 20mg BID. I would encourage cessation of NSAIDs given her history of small intestinal ulcers. Antibiotics have also been initiated for her urinary tract infection. Will monitor creatinine. Her electrolytes are being replenished. Further recommendations will be provided as the patient's clinical course progresses. Thank you, Dr. Calderón, for allowing us to participate in the care of your patient. If you should have any further questions or concerns, please do not hesitate to contact us. [id number]/[facility] #: [id number] WILLIAM
[2018-04-20] MEDS: HYDROmorphone INJ* 0.5 MG/0.5 ML SYRINGE IV SLOW PU PRN ×4 (01:29→20:25)
[2018-04-20] MEDS: NS 0.9% w/ 40 Meq KCL 1000 ML* 1,000 ML IV SCH (05:55)
[2018-04-20 07:30] LABS: Hematocrit 35 % (35-47); Hemoglobin 11.5 g/dl (12.0-16.0); Mean Corpuscular HGB Conc 33 g/dl (31-36); Mean Corpuscular Hemoglobin 27 pg (27-31); Mean Corpuscular Volume 83 fL (80-97); Red Blood Count 4.25 10^6/ul (4.00-5.40); Red Cell Distribution Width 16 % (10.5-15); White Blood Count 10.3 10^3/ul (3.5-10.8)
[2018-04-20 07:33] LABS: EGFR Non-African American 53.7 (>60)
[2018-04-20 08:29] LABS: ABS Basophils 0.1 10^3/ul (0-0.2); ABS Eosinophils 0.2 10^3/ul (0-0.6); ABS Lymphocytes 1.1 10^3/ul (1.0-4.8); ABS Monocytes 0.8 10^3/ul (0-0.8); ABS Nucleated RBC 0 10^3/ul; Eosinophil % 2.4 % (0-6); Lymphocyte % 10.3 % (25-47); Nucleated Red Blood Cells % 0.2
[2018-04-20] MEDS: Omeprazole CAP* 20 MG PO SCH ×2 (09:07→20:27)
[2018-04-20] MEDS ORDERED: Magnesium Sulfate IV* 3 GM in NS 0.9% 100 ML* 100 ML IVPB ONE (09:07)
[2018-04-20] MEDS: cefTRIAXone(*) 1 GM in NS 0.9% 50 ML* 50 ML IVPB SCH (10:00)
[2018-04-20] MEDS ORDERED: Meperidine Carpuject* 75 MG/ML CARPUJECT SYRINGE IV ONE (14:30)
[2018-04-20] MEDS ORDERED: Midazolam* 1 MG/ML 10 ML VIAL (10 MG) ONE (14:33)
--- NOTE | 2018-04-20 17:55 | PN ---
Subjective Date of Service: 04/20/18 Interval History: patient reports she is drwosy from the upper endoscopy this afternoon. She reports intermittent abdominal pain but seems to be slightly improved. Reports normal output from ostomy bag. No noted blood. No nausea. Falling asleep during assessment. Awakes easily and answers questions. Objective Active Medications: Buspirone HCl (Buspar Tab*) 7.5 mg PO BID PRN PRN Reason: ANXIETY Hydromorphone HCl (Dilaudid Inj*) 1 mg IV SLOW PU Q4H PRN PRN Reason: PAIN Last Admin: 04/20/18 10:26 Dose: 1 mg Ceftriaxone Sodium 1 gm/ (Sodium Chloride) 50 mls @ 200 mls/hr IVPB Q24H OSMANY Last Admin: 04/20/18 10:00 Dose: 200 mls/hr Omeprazole (Prilosec Cap*) 20 mg PO BID OSMANY Last Admin: 04/20/18 09:07 Dose: 20 mg Ondansetron HCl (Zofran Inj*) 4 mg IV Q6H PRN PRN Reason: NAUSEA Prochlorperazine Edisylate (Compazine Inj*) 5 mg IV Q6H PRN PRN Reason: NAUSEA/VOMITING Vital Signs - 8 hr 04/20/18 04/20/18 04/20/18 10:26 11:26 11:30 Temperature 97.9 F Pulse Rate 63 Respiratory 17 17 17 Rate Blood Pressure 113/64 (mmHg) O2 Sat by Pulse 99 Oximetry 04/20/18 04/20/18 15:47 16:54 Temperature 97.0 F 97.5 F Pulse Rate 71 69 Respiratory 17 16 Rate Blood Pressure 104/60 128/68 (mmHg) O2 Sat by Pulse 100 100 Oximetry Oxygen Devices in Use Now: None Appearance: chornically ill appearing 47 yo female laying in bed drowsy, awakes easily A+O x3 Eyes: No Scleral Icterus, PERRLA Ears/Nose/Mouth/Throat: Mucous Membranes Moist Respiratory: Symmetrical Chest Expansion and Respiratory Effort, Clear to Auscultation Cardiovascular: NL Sounds; No Murmurs; No JVD, RRR, No Edema Abdominal: NL Sounds; No Tenderness; No Distention, - - ostomy bag draining light brown stool Extremities: No Edema, No Clubbing, Cyanosis Skin: No Rash or Ulcers, No Nodules or Sclerosis Neurological: Alert and Oriented x 3, NL Sensation, NL Muscle Strength and Tone Lines/Tubes/Other Access: Clean, Dry and Intact Peripheral IV Nutrition: Taking PO's Result Diagrams: 04/20/18 06:57 04/20/18 06:58 Microbiology and Other Data: Microbiology 04/18/18 22:00 Urine Culture - Final Urine 04/19/18 17:20 Stool Gross Appearance - Final Stool C. difficile DNA Amplification - Final 027 Presumptive NEGATIVE Toxigenic C.diff NEGATIVE 04/19/18 17:20 Stool Gross Appearance - Final Stool Stool Lactoferrin - Final Assess/Plan/Problems-Billing Assessment: Ms. Key is a 47 year old lady with history of crohn's disease s/p colectomy and ileostomy who presented 04/18 with abdominal pain and nausea and was found to have hyponatremia - Patient Problems (1) Abdominal pain Comment: Appreciate GI consult - underwent upper endoscopy with Dr. Zacarias today which narrowing and possibly ulcers in the illeum. Biopsies were taken and are pending at this time. If crohns flare will require steroids. (2) Crohn disease Comment: s/p colectomy and ileostomy (3) UTI (urinary tract infection) Comment: urine cx - possible contamination recommended resubmitting - recheck UA ceftriaxone started 04/19 - will continue for now until UA results (4) Electrolyte abnormality Comment: replace magnesium. repeat in am (5) Hyponatremia Comment: Resolving suspect secondary to hypovolemia (6) CKD (chronic kidney disease) Comment: Around baseline - improved with IVFs (7) DVT prophylaxis Comment: HSQ (8) Full code status Status and Disposition: inpatient. Home when medically stable
[2018-04-21] MEDS: HYDROmorphone INJ* 0.5 MG/0.5 ML SYRINGE IV SLOW PU PRN ×7 (00:29→22:21)
[2018-04-21 07:35] LABS: ABS Basophils 0.1 10^3/ul (0-0.2); ABS Eosinophils 0.3 10^3/ul (0-0.6); ABS Lymphocytes 0.9 10^3/ul (1.0-4.8); ABS Monocytes 0.6 10^3/ul (0-0.8); ABS Nucleated RBC 0 10^3/ul; Eosinophil % 3.4 % (0-6); Hematocrit 33 % (35-47); Hemoglobin 11.2 g/dl (12.0-16.0); Lymphocyte % 9.7 % (25-47); Mean Corpuscular HGB Conc 34 g/dl (31-36); Mean Corpuscular Hemoglobin 28 pg (27-31); Mean Corpuscular Volume 83 fL (80-97); Mean Platelet Volume 7.9 um3 (7.4-10.4); Nucleated Red Blood Cells % 0; Platelet Count 304 10^3/ul (150-450); Red Blood Count 4.03 10^6/ul (4.00-5.40); Red Cell Distribution Width 16 % (10.5-15); White Blood Count 8.8 10^3/ul (3.5-10.8)
--- NOTE | 2018-04-21 07:52 | PN ---
Subjective Date of Service: 04/21/18 Interval History: patient reports she continues to have twinges of sharp pain and crmaping pain in abdomen reporting the pain changes to lower, mid and upper. This is not necessarily new for her as she has had this at home at her baseline but reports now it is exacerbated and "more intense and frequent". No further nausea or vomiting. Reports stool output to be at her baseline. No fevers or chills. Denies dysuria, hematuria or increased frequency. No CVA or flank pain. Objective Active Medications: Buspirone HCl (Buspar Tab*) 7.5 mg PO BID PRN PRN Reason: ANXIETY Hydromorphone HCl (Dilaudid Inj*) 1 mg IV SLOW PU Q4H PRN PRN Reason: PAIN Last Admin: 04/21/18 04:34 Dose: 1 mg Ceftriaxone Sodium 1 gm/ (Sodium Chloride) 50 mls @ 200 mls/hr IVPB Q24H OSMANY Last Admin: 04/20/18 10:00 Dose: 200 mls/hr Omeprazole (Prilosec Cap*) 20 mg PO BID [facility] Last Admin: 04/20/18 20:27 Dose: 20 mg Ondansetron HCl (Zofran Inj*) 4 mg IV Q6H PRN PRN Reason: NAUSEA Prochlorperazine Edisylate (Compazine Inj*) 5 mg IV Q6H PRN PRN Reason: NAUSEA/VOMITING Vital Signs - 8 hr 04/21/18 04/21/18 04/21/18 00:29 02:08 04:16 Temperature 98.1 F Pulse Rate 72 Respiratory 16 18 17 Rate Blood Pressure 137/73 (mmHg) O2 Sat by Pulse 100 Oximetry 04/21/18 04/21/18 04:34 05:59 Temperature Pulse Rate Respiratory 18 16 Rate Blood Pressure (mmHg) O2 Sat by Pulse Oximetry Oxygen Devices in Use Now: None Appearance: chronically ill 47 yo female laying in bed A+O x3 in NAD watching tv Eyes: No Scleral Icterus, PERRLA Ears/Nose/Mouth/Throat: Mucous Membranes Moist Neck: NL Appearance and Movements; NL JVP Respiratory: Symmetrical Chest Expansion and Respiratory Effort, Clear to Auscultation Cardiovascular: NL Sounds; No Murmurs; No JVD, RRR, No Edema Abdominal: - - soft, nondistended, noted colostomy drain light green/brown stool. NL BS. mild tenderness to suprapubic area both onthe R, L and mid area - also has some tenderness upper quad R, L and mid area. Mild gaurding and jumping with exam. No rebound tenderness. Extremities: No Edema, No Clubbing, Cyanosis Skin: No Rash or Ulcers, No Nodules or Sclerosis Neurological: Alert and Oriented x 3, NL Sensation, NL Muscle Strength and Tone Lines/Tubes/Other Access: Clean, Dry and Intact Peripheral IV Nutrition: Taking PO's Result Diagrams: 04/21/18 07:04 04/21/18 07:04 Microbiology and Other Data: Microbiology 04/18/18 22:00 Urine Culture - Final Urine 04/19/18 17:20 Stool Gross Appearance - Final Stool C. difficile DNA Amplification - Final 027 Presumptive NEGATIVE Toxigenic C.diff NEGATIVE 04/19/18 17:20 Stool Gross Appearance - Final Stool Stool Lactoferrin - Final Assess/Plan/Problems-Billing Assessment: Ms. Key is a 47 year old lady with history of crohn's disease s/p colectomy and ileostomy who presented 04/18 with abdominal pain and nausea and was found to have hyponatremia - Patient Problems (1) Abdominal pain Comment: Appreciate GI consult - underwent upper endoscopy with Dr. Zacarias 04/20 in which noted narrowing and possible ulcers were seen in the illeum. Biopsies were taken and are pending at this time. If this is a crohns flare will require steroids. unlcear etiology and her reported symptoms are vague. I have low suspicion for SBO. Possible UTI? could be causing some additional discomfort but do not think it is driving all the pain. I do not think she requires CT scan now. Urine cx contaiminated - will continue abx for UTI at this time. Await Biopsies - GI followng Pain management (2) Crohn disease Comment: s/p colectomy and ileostomy (3) UTI (urinary tract infection) Comment: urine cx - possible contamination recommended resubmitting - recheck UA ceftriaxone started 04/19 - will continue for now until UA results (4) Electrolyte abnormality Comment: Mg 1.2, low again today 1.6 replace magnesium. repeat in am (5) Hyponatremia Comment: Resolving suspect secondary to hypovolemia (6) CKD (chronic kidney disease) Comment: Around baseline - improved with IVFs (7) DVT prophylaxis Comment: HSQ (8) Full code status Status and Disposition: inpatient. Home when medically stable
[2018-04-21 07:54] LABS: EGFR Non-African American 63.6 (>60)
[2018-04-21] MEDS: cefTRIAXone(*) 1 GM in NS 0.9% 50 ML* 50 ML IVPB SCH (09:07)
[2018-04-21] MEDS: Omeprazole CAP* 20 MG PO SCH ×2 (09:07→19:23)
--- NOTE | 2018-04-21 09:55 | PRO ---
PROCEDURE REPORT: DATE OF PROCEDURE: 04/20/18 PROCEDURE: EGD and ileoscopy. INDICATION: Question of Crohn's. MEDICATIONS GIVEN: 1. 75 mg IV Demerol. 2. 10 mg IV Versed. DESCRIPTION OF PROCEDURE: After the EGD and ileoscopy procedures, including the risks, benefits, and alternatives, not limited to perforation, surgery, and/ or were explained to Ms. Key, written consent was then obtained. IV medication was given and a bite block was placed between the teeth. An Olympus gastroscope was then inserted into the patient's mouth, advanced down the esophagus, into the stomach, into the distal duodenum. In the esophagus, at the GE junction, Z-line was intact. No erosive esophagitis, stricture, or ring was seen. The scope was advanced through a widely patent GE junction into the body of the stomach. Retroflex view was unremarkable. Forward view also was unremarkable. No abnormalities were seen. The scope was advanced through a widely patent pylorus, into the duodenal bulb, into the distal duodenum, both of which were unremarkable. The scope was then withdrawn from the patient. She was turned around and additional IV medication was given. An Olympus gastroscope was then inserted into the patient's stoma in her abdominal wall and advanced to approximately 20 to 25 cm. At this area, there was a narrowed lumen. It did appear that there were ulcers in this area. Biopsies were obtained. The scope was then withdrawn from the patient. She tolerated the procedure well and was returned to the hospital room in stable condition. IMPRESSION: 1. Complete upper endoscopy into the distal duodenum. 2. Normal upper endoscopy. 3. Ileoscopy to 25 cm with biopsies. 4. Ileal ulcers. 5. I will follow up on the biopsies. I do wonder if this is related to either Crohn's or nonsteroidals. The patient wants to hold off on starting any steroids at this point, until the biopsies return. [id number]/[facility] #: [id number] [facility] HEALTHJud
[2018-04-21] MEDS ORDERED: Magnesium Sulfate 2 GM IV* 2 GM/50 ML BAG IVPB ONE (11:00)
--- NOTE | 2018-04-21 14:31 | PN ---
Progress Note - Progress Note Date of Service: 04/21/18 - Gastroenterology Note: Patient seen and examined. No new overnight issues. No abdominal pain. Clear liquid stool in ostomy bag. On clear liquids. Mild nausea/ No emesis. No fevers/ chills. Vital Signs: Temp Pulse Resp BP Pulse Ox 98.3 F 71 18 121/75 100 04/21/18 11:42 04/21/18 11:42 04/21/18 13:26 04/21/18 11:42 04/21/18 11:42 Physical Examination: General: AAOx3. NAD. Abdomen: Soft. NT/ND. Ostomy with clear brown liquid. No blood in ostomy bag. Stoma appears pink. +BS. Laboratory Results - last 24 hr 04/21/18 04/21/18 07:04 07:04 WBC 8.8 RBC 4.03 Hgb 11.2 L Hct 33 L MCV 83 MCH 28 MCHC 34 RDW 16 H Plt Count 304 MPV 7.9 Neut % (Auto) 79.8 Lymph % (Auto) 9.7 L [place] % (Auto) 6.3 Eos % (Auto) 3.4 Baso % (Auto) 0.8 Absolute Neuts (auto) 7.0 Absolute Lymphs (auto) 0.9 L Absolute Monos (auto) 0.6 Absolute Eos (auto) 0.3 Absolute Basos (auto) 0.1 Absolute Nucleated RBC 0 Nucleated RBC % 0 Sodium 133 L Potassium 3.7 Chloride 107 Carbon Dioxide 21 L Anion Gap 5 BUN 4 L Creatinine 0.95 Est GFR ( Amer) 77.0 Est GFR (Non-Af Amer) 63.6 BUN/Creatinine Ratio 4.2 L Glucose 84 Calcium 7.7 L Magnesium 1.6 L A/P: 47 yo female with a hx of chronic abdominal pain on methadone and NSAIDs and Crohn's disease complicated by multiple abdominal surgeries now with colectomy and ileostomy p/w non-specific complaints of nausea/emesis, lower abdominal pain and loose output in ostomy. EGD was unremarkable and Ileoscopy showed ileal ulcers (NSAID vs Crohn's disease). She was also noted to have a UTI and is on abx. 1. Abdominal pain with nausea/emesis/loose output in ostomy ~Slightly improved. ~EGD relatively unremarkable. ~Ileoscopy revealed ileal ulcers. Unclear at this time whether ulcers are NSAID- induced vs. Crohn's disease. Awaiting bx prior to initiating steroids. ~On PPI daily. ~Avoid NSAIDs. ~Stool studies negative for infectious etiology. 2. Crohn's disease complicated by several abdominal surgery with colectomy and ileostomy ~No on treatment at this time. ~CRP normal. 3. UTI ~On abx. 4. Chronic abdominal pain ~On Methadone. Call with questions or concerns. Ros Hull D.O.
[2018-04-21 14:36] LABS: Urine Appearance Clear; Urine Blood 2+ (Negative); Urine Color Yellow; Urine Ketones Negative (Negative); Urine Protein Negative (Negative); Urine Red Blood Cell 2+(6-10/hpf) (Absent); Urine Specific Gravity 1.005 (1.010-1.030); Urine Urobilinogen Negative (Negative); Urine White Blood Cell 3+(>20/hpf) (Absent)
[2018-04-22] MEDS: HYDROmorphone INJ* 0.5 MG/0.5 ML SYRINGE IV SLOW PU PRN ×7 (01:24→23:51)
[2018-04-22 07:23] LABS: EGFR Non-African American 62.8 (>60)
[2018-04-22] MEDS: Omeprazole CAP* 20 MG PO SCH ×2 (09:50→20:16)
[2018-04-22] MEDS: cefTRIAXone(*) 1 GM in NS 0.9% 50 ML* 50 ML IVPB SCH (09:50)
[2018-04-22] MEDS ORDERED: Magnesium Sulfate 2 GM IV* 2 GM/50 ML BAG IVPB ONE (10:30)
--- NOTE | 2018-04-22 14:57 | PN ---
Subjective Date of Service: 04/22/18 Interval History: Patient was seen and examined earlier today. Reports feeling about the same. Abdominal pain still intermittent, denies nausea or vomiting, but afraid to advance her diet too soon in fear of worsening symptoms. Eager to learn about path reports for ileal bx. She has no new complaints. Family History: Unchanged from Admission Social History: Unchanged from Admission Past Medical History: Unchanged from Admission Objective Active Medications: Buspirone HCl (Buspar Tab*) 7.5 mg PO BID PRN PRN Reason: ANXIETY Last Admin: 04/22/18 09:50 Dose: 7.5 mg Hydromorphone HCl (Dilaudid Inj*) 1 mg IV SLOW PU Q3H PRN PRN Reason: PAIN Last Admin: 04/22/18 13:30 Dose: 1 mg Ceftriaxone Sodium 1 gm/ (Sodium Chloride) 50 mls @ 200 mls/hr IVPB Q24H OSMANY Last Admin: 04/22/18 09:50 Dose: 200 mls/hr Methylprednisolone Sodium Succinate (Solu-Medrol 40 Mg) 40 mg IV Q12H OSMANY Omeprazole (Prilosec Cap*) 20 mg PO BID OSMANY Last Admin: 04/22/18 09:50 Dose: 20 mg Ondansetron HCl (Zofran Inj*) 4 mg IV Q6H PRN PRN Reason: NAUSEA Prochlorperazine Edisylate (Compazine Inj*) 5 mg IV Q6H PRN PRN Reason: NAUSEA/VOMITING Vital Signs - 8 hr 04/22/18 04/22/18 04/22/18 07:16 08:00 09:51 Temperature 98.2 F Pulse Rate 68 Respiratory 20 18 18 Rate Blood Pressure 110/64 (mmHg) O2 Sat by Pulse 100 Oximetry 04/22/18 04/22/18 04/22/18 11:09 11:25 13:30 Temperature 97.4 F Pulse Rate 71 Respiratory 16 18 16 Rate Blood Pressure 137/73 (mmHg) O2 Sat by Pulse 100 Oximetry Oxygen Devices in Use Now: None Appearance: Slim middle aged female, appears comfortable and in NAD. Eyes: No Scleral Icterus, PERRLA Ears/Nose/Mouth/Throat: Clear Oropharnyx, Mucous Membranes Moist Neck: NL Appearance and Movements; NL JVP, Trachea Midline Respiratory: Symmetrical Chest Expansion and Respiratory Effort, Clear to Auscultation Cardiovascular: NL Sounds; No Murmurs; No JVD, RRR Abdominal: - - Abdomen soft and non-distended. Mild generalized tenderness, without guarding, rigidity or rebound. Stoma viable with dark yelloe liquid stool. No blood in stoma bag. Extremities: No Edema Skin: No Rash or Ulcers Neurological: Alert and Oriented x 3 Nutrition: Taking PO's Result Diagrams: 04/21/18 07:04 04/22/18 06:50 Additional Lab and Data: . Microbiology and Other Data: Diagnostic Imaging: LOLIS KEY 1970 [id number] LOLIS KEY [id number] Page: [place] [address] Ph.#: [phone] Fax#: [phone] [place] # [id number] Oh Maharaj M.D. Director of Laboratory SURGICAL PATHOLOGY REPORT LOLIS KEY [id number] Page: Patient Name: LOLIS KEY Pathology Number: [id number] Med.Rec. #: [id number] Collection Date: 04/20/18 Acct. Number#: [id number] Received Date: 04/20/18 : 1970 Location: [facility] Gender: F Status: [facility] Submitting Physician: Jb Zacarias MD Other Physician: Dahiana Baird MD FINAL DIAGNOSIS Ileum, biopsy: -- Chronic, focally active enteritis; see comment. -- Granulomata are not seen. -- Dysplasia is absent. -- No evidence of viral cytopathic effect or parasites. COMMENT: The findings are favored to represent inflammatory bowel disease such as Crohn' s enteritis given the marked architectural distortion, evidence of chronicity. Electronically Signed by: Kourtney Quijano MD Reported on: 04/22/18 1058 EKG Data: . Assess/Plan/Problems-Billing Assessment: Ms. Key is a 47 year old lady with history of crohn's disease s/p colectomy and ileostomy who presented 04/18 with abdominal pain and nausea and was found to have hyponatremia. She had an EGD/ileoscopy with bx consistent with Crohn's disease. - Patient Problems (1) Abdominal pain Current Visit: Yes Status: Acute Comment: - Appreciate GI consult - underwent upper endoscopy with Dr. Zacarias 04/20 in which noted narrowing and possible ulcers were seen in the illeum. Biopsies with consistent with probable Crohn's disease. Per Dr. hale, will intiate solumedrol 40mg IV BID for 24 hrs, then may discharge to home afterwards with a tappering dose. - Urine cx contaiminated - will continue abx for UTI at this time. - Pain management (2) Crohn disease Current Visit: Yes Status: Acute Comment: - s/p colectomy and ileostomy - Probable acute flare-ups on chronic IBD status. no evidence of excessive NSAIDs use. (3) Electrolyte abnormality Current Visit: Yes Status: Acute Comment: - Mg was low again today 1.6 - IV Mg replaced, check labs in AM (4) Hyponatremia Current Visit: Yes Status: Acute Comment: - Resolving suspect secondary to hypovolemia (5) UTI (urinary tract infection) Current Visit: Yes Status: Suspected Comment: - urine cx - possible contamination recommended resubmitting - recheck UA ceftriaxone started 04/19 - - Rechecked UA with no growth, will d/c Abx (6) DVT prophylaxis Current Visit: No Status: Acute Comment: - SQ Heparin (7) Full code status Current Visit: Yes Status: Acute Status and Disposition: inpatient. Home when medically stable, likely tomorrow AM 04/23/18
[2018-04-22] MEDS: methylPREDNISolone SOD 40 MG* 1 ML VIAL IV SCH (15:02)
--- NOTE | 2018-04-22 16:15 | PN ---
Progress Note - Progress Note Date of Service: 04/22/18 - Gastroenterology Note: Patient seen and examined. No new overnight issues. Mild abdominal pain. Tolerating full liquids. No fevers/chills. No nausea/emesis. Brown watery liquid in ostomy and no blood. Vital Signs: Temp Pulse Resp BP Pulse Ox 97.4 F 71 18 137/73 100 04/22/18 11:09 04/22/18 11:09 04/22/18 15:08 04/22/18 11:09 04/22/18 11:09 Physical Examination: General: NAD. CV: RRR. PULM: CTAB. ABDOMEN: Soft, NT/ND, +BS. Ostomy with brown liquid stool and without blood. EXT: No C/C/E. Laboratory Results - last 24 hr 04/22/18 06:50 Sodium 134 L Potassium 4.7 Chloride 108 Carbon Dioxide 20 L Anion Gap 6 BUN 3 L Creatinine 0.96 H Est GFR ( Amer) 76.0 Est GFR (Non-Af Amer) 62.8 BUN/Creatinine Ratio 3.1 L Glucose 94 Calcium 7.9 L Magnesium 1.6 L A/P: 47 yo female with a hx of chronic abdominal pain on methadone and NSAIDs and Crohn's disease complicated by multiple abdominal surgeries now with colectomy and ileostomy p/w non-specific complaints of nausea/emesis, lower abdominal pain and loose output in ostomy. EGD was unremarkable and Ileoscopy showed ileal ulcers (NSAID vs Crohn's disease). She was also noted to have a UTI and is on abx. 1. Abdominal pain with nausea/emesis/loose output in ostomy ~Slightly improved. ~Stool studies negative for infectious etiology. ~EGD relatively unremarkable. ~Ileoscopy revealed ileal ulcers and mild narrowing. Maybe NSAID-induced vs. Crohn's disease. Bx were reviewed are suggestive of chronic colitis c/w Crohn's. ~Will initiate solumedrol 40 mg IV BID. Patient is agreeable. ~On PPI daily. ~Avoid NSAIDs in the future. 2. Crohn's disease complicated by several abdominal surgeries with colectomy and ileostomy ~Not on treatment for Crohn's. ~CRP normal. 3. UTI ~On abx. 4. Chronic abdominal pain ~On Methadone. D/w primary team. Will follow. Please feel free to call with questions or concerns. Ros Hull D.O.
[2018-04-23] MEDS: HYDROmorphone INJ* 0.5 MG/0.5 ML SYRINGE IV SLOW PU PRN ×4 (03:26→14:58)
[2018-04-23] MEDS: methylPREDNISolone SOD 40 MG* 1 ML VIAL IV SCH ×2 (03:26→14:58)
[2018-04-23] MEDS: Omeprazole CAP* 20 MG PO SCH ×2 (07:58→19:49)
[2018-04-23 10:50] LABS: ABS Basophils 0.1 10^3/ul (0-0.2); ABS Eosinophils 0 10^3/ul (0-0.6); ABS Lymphocytes 0.5 10^3/ul (1.0-4.8); ABS Monocytes 0.2 10^3/ul (0-0.8); ABS Neutrophils 9.4 10^3/ul (1.5-7.7); ABS Nucleated RBC 0 10^3/ul; Eosinophil % 0.1 % (0-6); Hematocrit 33 % (35-47); Hemoglobin 10.9 g/dl (12.0-16.0); Lymphocyte % 5.1 % (25-47); Mean Corpuscular HGB Conc 33 g/dl (31-36); Mean Corpuscular Hemoglobin 27 pg (27-31); Mean Corpuscular Volume 83 fL (80-97); Nucleated Red Blood Cells % 0; Platelet Count 302 10^3/ul (150-450); Red Blood Count 3.99 10^6/ul (4.00-5.40); Red Cell Distribution Width 16 % (10.5-15); White Blood Count 10.1 10^3/ul (3.5-10.8)
[2018-04-23 11:05] LABS: EGFR Non-African American 64.4 (>60)
[2018-04-23] MEDS ORDERED: Magnesium Sulfate 2 GM IV* 2 GM/50 ML BAG IVPB ONE (12:00)
--- NOTE | 2018-04-23 13:18 | PN ---
Subjective - Subjective Date of Service: 04/23/18 - GI Service History: Patient seen and examined. No acute events overnight. Still having some diffuse abd pain. Tolerating diet and IV steroids. No black or blood in ostomy. Active Problems: Active Problems Abdominal pain (Acute) R10.9 - Appreciate GI consult - underwent upper endoscopy with Dr. Zacarias 04/20 in which noted narrowing and possible ulcers were seen in the illeum. Biopsies with consistent with probable Crohn's disease. Per Dr. hale, will intiate solumedrol 40mg IV BID for 24 hrs, then may discharge to home afterwards with a tappering dose. - Urine cx contaiminated - will continue abx for UTI at this time. - Pain management CKD (chronic kidney disease) (Acute) N18.9 Around baseline - improved with IVFs Crohn disease (Acute) K50.90 - s/p colectomy and ileostomy - Probable acute flare-ups on chronic IBD status. no evidence of excessive NSAIDs use. Electrolyte abnormality (Acute) E87.8 - Mg was low again today 1.6 - IV Mg replaced, check labs in AM Full code status (Acute) Z78.9 Hyponatremia (Acute) E87.1 - Resolving suspect secondary to hypovolemia Current Medications: Current Medications Buspirone HCl (Buspar Tab*) 7.5 mg PO BID PRN PRN Reason: ANXIETY Last Admin: 04/22/18 09:50 Dose: 7.5 mg Hydromorphone HCl (Dilaudid Inj*) 1 mg IV SLOW PU Q3H PRN PRN Reason: PAIN Last Admin: 04/23/18 11:36 Dose: 1 mg Magnesium Oxide (Magox 400 Tab*) 400 mg PO DAILY [facility] Methylprednisolone Sodium Succinate (Solu-Medrol 40 Mg) 40 mg IV Q12H [facility] Last Admin: 04/23/18 03:26 Dose: 40 mg Omeprazole (Prilosec Cap*) 20 mg PO BID [facility] Last Admin: 04/23/18 07:58 Dose: 20 mg Ondansetron HCl (Zofran Inj*) 4 mg IV Q6H PRN PRN Reason: NAUSEA Prochlorperazine Edisylate (Compazine Inj*) 5 mg IV Q6H PRN PRN Reason: NAUSEA/VOMITING - Review of Systems Gastroenterology: Positive: Abdominal Pain Home Medications: Home Medications Medication Instructions Recorded Confirmed Type FLUoxetine CAP* [Prozac CAP*] 40 mg PO DAILY 06/26/17 04/18/18 History Methadone ORAL.CONC* [Dolophine 10 mg PO TID 06/26/17 04/18/18 History ORAL.CONC*] Zolpidem CR (NF) [Ambien CR (NF)] 12.5 mg PO BEDTIME PRN 06/26/17 04/18/18 History busPIRone TAB* [Buspar TAB*] 7.5 mg PO BID PRN 06/26/17 04/18/18 History Omeprazole CAP* [Prilosec CAP* 20 20 mg PO BID #60 cap 07/03/17 04/18/18 Rx MG] Ibuprofen 600 mg PO TID PRN #30 tablet MDD 3 11/09/17 04/18/18 Rx Bupropion XL* [Wellbutrin XL *] 150 mg PO DAILY 04/18/18 04/18/18 History Promethazine TAB* [Phenergan TAB*] 25 mg PO Q6H PRN 04/18/18 04/18/18 History Allergies: Allergies Allergy/AdvReac Type Severity Reaction Status Date / Time acetaminophen [From Tylenol] Allergy Rash Verified 04/18/18 16:31 benzocaine Allergy Anaphylatic Verified 04/18/18 16:31 Shock cyclobenzaprine Allergy Rash Verified 04/18/18 16:31 [From Flexeril] fentanyl Allergy Rash Verified 04/18/18 16:31 Iodinated Contrast- Oral and Allergy Rash Verified 04/18/18 16:31 IV Dye morphine Allergy Rash Verified 04/18/18 16:31 Penicillins Allergy Rash Verified 04/18/18 16:31 patch Allergy Rash Uncoded 12/27/17 18:12 Objective - Vital Signs Vital Signs: Vital Signs 04/22/18 04/22/18 04/22/18 13:30 15:08 15:54 Temperature 98.4 F Pulse Rate 72 Respiratory 16 18 16 Rate Blood Pressure 130/71 (mmHg) O2 Sat by Pulse 100 Oximetry 04/22/18 04/22/18 04/22/18 16:52 17:37 18:46 Temperature 98.2 F Pulse Rate 77 Respiratory 17 16 16 Rate Blood Pressure 124/65 (mmHg) O2 Sat by Pulse 100 Oximetry 0804/22/18 04/22/18 20:00 20:16 23:51 Temperature Pulse Rate Respiratory 17 18 18 Rate Blood Pressure (mmHg) O2 Sat by Pulse Oximetry 04/22/18 04/23/18 04/23/18 23:56 02:11 03:20 Temperature 98.0 F 97.9 F Pulse Rate 68 65 Respiratory 16 18 16 Rate Blood Pressure 143/74 108/68 (mmHg) O2 Sat by Pulse 100 99 Oximetry 04/23/18 04/23/18 04/23/18 03:26 04:57 07:58 Temperature Pulse Rate Respiratory 16 17 16 Rate Blood Pressure (mmHg) O2 Sat by Pulse Oximetry 04/23/18 04/23/18 04/23/18 08:00 08:02 09:00 Temperature 98.2 F Pulse Rate 72 Respiratory 16 20 16 Rate Blood Pressure 132/69 (mmHg) O2 Sat by Pulse 99 Oximetry 04/23/18 04/23/18 10:53 11:36 Temperature 98.5 F Pulse Rate 83 Respiratory 18 16 Rate Blood Pressure 126/67 (mmHg) O2 Sat by Pulse 99 Oximetry - Intake and Output Intake and Output: Intake & Output 04/21/18 04/22/18 04/23/18 04/24/18 06:59 06:59 06:59 06:59 Intake Total 1540 1660 1670 400 Balance 1540 1660 1670 400 Intake: IV Fluids 100 50 mag 50 IVPB 50 120 abx 60 mag 60 Oral 1390 1540 1620 400 Other: Estimated Void Large Medium Medium # Bowel Movements 0 Estimated Stool Amount Small Medium Medium # Voids 1 0 2 - Physical Exam General: No Cyanosis, No Jaundice, No Clubbing Eye Exam: right: PERRLA, EOMI Skin: Normal: Rash, Lesions Lungs and Chest: Yes: Chest Expansion Full, Chest Expansion Symetrica, Other - Clear to auscultation b/l Heart Rate and Rhythm: Regular JVP: Not Elevated Abdominal Exam: Yes: Soft, Bowel Sounds Present - mild ttp, less with distraction. Ostomy pink and patent. . No: Distention - Neuro Orientation: A/O x3, Person, Place, Time Psychiatric: Normal Results - Results Lab Results: Laboratory Results - last 24 hr 04/23/18 04/23/18 10:25 10:25 WBC 10.1 RBC 3.99 L Hgb 10.9 L Hct 33 L MCV 83 MCH 27 MCHC 33 RDW 16 H Plt Count 302 MPV 8.0 Neut % (Auto) 92.6 H Lymph % (Auto) 5.1 L [place] % (Auto) 1.7 Eos % (Auto) 0.1 Baso % (Auto) 0.5 Absolute Neuts (auto) 9.4 H Absolute Lymphs (auto) 0.5 L Absolute Monos (auto) 0.2 Absolute Eos (auto) 0 Absolute Basos (auto) 0.1 Absolute Nucleated RBC 0 Nucleated RBC % 0 Sodium 134 L Potassium 4.5 Chloride 107 Carbon Dioxide 21 L Anion Gap 6 BUN 4 L Creatinine 0.94 Est GFR ( Amer) 77.9 Est GFR (Non-Af Amer) 64.4 BUN/Creatinine Ratio 4.3 L Glucose 235 H Calcium 7.8 L Magnesium 1.4 L Assessment - Problem List Assessment: Patient Problems Abdominal pain (Acute) CKD (chronic kidney disease) (Acute) Crohn disease (Acute) Electrolyte abnormality (Acute) Full code status (Acute) Hyponatremia (Acute) Acute kidney failure (Acute) Chronic abdominal pain (Acute) DVT prophylaxis (Acute) DVT prophylaxis (Acute) Leukocytosis (Acute) Partial small bowel obstruction (Acute) Right ovarian cyst (Acute) Weight loss (Acute) Crohns disease of small intestine (Chronic 05/15/14)
--- NOTE | 2018-04-23 13:42 | PN ---
Progress Note - Progress Note Date of Service: 04/23/18 Note: GI Follow Up Subjective Interval History: Patient seen and examined. Mild diffuse abd pain. Resting comfortably on arrival to room. No black or blood in stool. No fever or chills. Tolerating full liquid diet. Family History: Unchanged from Admission Social History: Unchanged from Admission Past Medical History: Unchanged from Admission Objective Active Medications: Buspirone HCl (Buspar Tab*) 7.5 mg PO BID PRN PRN Reason: ANXIETY Last Admin: 04/22/18 09:50 Dose: 7.5 mg Hydromorphone HCl (Dilaudid Inj*) 1 mg IV SLOW PU Q3H PRN PRN Reason: PAIN Last Admin: 04/23/18 11:36 Dose: 1 mg Magnesium Oxide (Magox 400 Tab*) 400 mg PO DAILY [facility] Methylprednisolone Sodium Succinate (Solu-Medrol 40 Mg) 40 mg IV Q12H [facility] Last Admin: 04/23/18 03:26 Dose: 40 mg Omeprazole (Prilosec Cap*) 20 mg PO BID [facility] Last Admin: 04/23/18 07:58 Dose: 20 mg Ondansetron HCl (Zofran Inj*) 4 mg IV Q6H PRN PRN Reason: NAUSEA Prochlorperazine Edisylate (Compazine Inj*) 5 mg IV Q6H PRN PRN Reason: NAUSEA/VOMITING Vital Signs - 8 hr 04/23/18 04/23/18 04/23/18 07:58 08:00 08:02 Temperature 98.2 F Pulse Rate 72 Respiratory 16 16 20 Rate Blood Pressure 132/69 (mmHg) O2 Sat by Pulse 99 Oximetry 04/23/18 04/23/18 04/23/18 09:00 10:53 11:36 Temperature 98.5 F Pulse Rate 83 Respiratory 16 18 16 Rate Blood Pressure 126/67 (mmHg) O2 Sat by Pulse 99 Oximetry Oxygen Devices in Use Now: None Eyes: No Scleral Icterus, PERRLA Ears/Nose/Mouth/Throat: Clear Oropharnyx, Mucous Membranes Moist Neck: Trachea Midline, No Thyroid Enlargement, Masses Respiratory: Symmetrical Chest Expansion and Respiratory Effort, Clear to Auscultation Cardiovascular: NL Sounds; No Murmurs; No JVD, RRR, No Edema Abdominal: - - Soft, mild TTP less with distrction, bs+, ostomy pink and patent. Lymphatic: No Cervical Adenopathy Extremities: No Edema Skin: No Rash or Ulcers Neurological: Alert and Oriented x 3 Result Diagrams: 04/23/18 10:25 04/23/18 10:25 Additional Lab and Data: . Microbiology and Other Data: Diagnostic Imaging: LOLIS BRANNON 1970 [id number] LOLIS BRANNON [id number] Page: [facility] [address] [place] [address] Ph.#: [phone] Fax#: [phone] [facility] # [id number] Oh Maharaj M.D. Director of Laboratory SURGICAL PATHOLOGY REPORT LOLIS BRANNON [id number] Page: Patient Name: LOLIS BRANNON Pathology Number: [id number] Med.Rec. #: [id number] Collection Date: 04/20/18 Acct. Number#: [id number] Received Date: 04/20/18 : 1970 Location: [facility] Gender: F Status: [facility] Submitting Physician: Jb Zacarias MD Other Physician: Dahiana Baird MD FINAL DIAGNOSIS Ileum, biopsy: -- Chronic, focally active enteritis; see comment. -- Granulomata are not seen. -- Dysplasia is absent. -- No evidence of viral cytopathic effect or parasites. COMMENT: The findings are favored to represent inflammatory bowel disease such as Crohn' s enteritis given the marked architectural distortion, evidence of chronicity. Electronically Signed by: Kourtney Quijano MD Reported on: 04/22/18 105 EKG Data: . Assess/Plan/Problems-Billing Assessment: A/P: 47 yo female with a hx of chronic abdominal pain on methadone and NSAIDs and Crohn's disease complicated by multiple abdominal surgeries now with colectomy and ileostomy p/w non-specific complaints of nausea/emesis, lower abdominal pain and loose output in ostomy. EGD was unremarkable and Ileoscopy showed ileal ulcers (NSAID vs Crohn's disease). She was also noted to have a UTI and is on abx. 1. Abdominal pain with nausea/emesis/loose output in ostomy ~Slightly improved. ~Stool studies negative for infectious etiology. ~EGD relatively unremarkable. ~Ileoscopy revealed ileal ulcers and mild narrowing. Maybe NSAID-induced vs. Crohn's disease. Bx were reviewed are suggestive of chronic colitis c/w Crohn's. ~on solumedrol 40mg IV, would plan to transition to PO prednisone as tolerated. ~On PPI daily. ~Avoid NSAIDs in the future. 2. Crohn's disease complicated by several abdominal surgeries with colectomy and ileostomy ~Not on treatment for Crohn's. ~CRP normal. 3. UTI ~On abx. per PMD 4. Chronic abdominal pain ~On Methadone. Plan: Transition to oral as tolerated. Would plan for 40mg PO x 14 days, then 30mg PO x 14 days and then follow up in office. May advance diet as tolerated. Follow up in office in 3-4 weeks with any provider. Chaitanya Durant DO 04/23/18 [id number]
--- NOTE | 2018-04-23 14:40 | PN ---
Subjective Date of Service: 04/23/18 Interval History: Patient was seen and examined earlier today. Reports persistent diffuse mild abdominal pain, not any worse that it's been. Tolerating full liquids, denies nausea or vomiting. Stoma bag continues to fill with liquid light brown stools, no visible blood in bag. No fever or chills. Started on Prednisone therapy last night. Continues to have hypomagnesemia despite IV Mg Sulfate runs. Family History: Unchanged from Admission Social History: Unchanged from Admission Past Medical History: Unchanged from Admission Objective Active Medications: Buspirone HCl (Buspar Tab*) 7.5 mg PO BID PRN PRN Reason: ANXIETY Last Admin: 04/22/18 09:50 Dose: 7.5 mg Hydromorphone HCl (Dilaudid Inj*) 1 mg IV SLOW PU Q3H PRN PRN Reason: PAIN Last Admin: 04/23/18 11:36 Dose: 1 mg Magnesium Oxide (Magox 400 Tab*) 400 mg PO DAILY [facility] Methylprednisolone Sodium Succinate (Solu-Medrol 40 Mg) 40 mg IV Q12H [facility] Last Admin: 04/23/18 03:26 Dose: 40 mg Omeprazole (Prilosec Cap*) 20 mg PO BID [facility] Last Admin: 04/23/18 07:58 Dose: 20 mg Ondansetron HCl (Zofran Inj*) 4 mg IV Q6H PRN PRN Reason: NAUSEA Prochlorperazine Edisylate (Compazine Inj*) 5 mg IV Q6H PRN PRN Reason: NAUSEA/VOMITING Vital Signs - 8 hr 04/23/18 04/23/18 04/23/18 07:58 08:00 08:02 Temperature 98.2 F Pulse Rate 72 Respiratory 16 16 20 Rate Blood Pressure 132/69 (mmHg) O2 Sat by Pulse 99 Oximetry 04/23/18 04/23/18 04/23/18 09:00 10:53 11:36 Temperature 98.5 F Pulse Rate 83 Respiratory 16 18 16 Rate Blood Pressure 126/67 (mmHg) O2 Sat by Pulse 99 Oximetry Oxygen Devices in Use Now: None Appearance: Laying in her bed, appears comfortable and in NAD Eyes: No Scleral Icterus, PERRLA Ears/Nose/Mouth/Throat: Clear Oropharnyx, Mucous Membranes Moist Neck: NL Appearance and Movements; NL JVP, Trachea Midline Respiratory: Symmetrical Chest Expansion and Respiratory Effort, Clear to Auscultation Cardiovascular: NL Sounds; No Murmurs; No JVD, RRR Abdominal: - - Abdomen soft and non-distended. Mild diffuse tenderness without guarding, rigidity or rebound. bowel sounds active. Extremities: No Edema Neurological: Alert and Oriented x 3 Result Diagrams: 04/23/18 10:25 04/23/18 10:25 Additional Lab and Data: . Microbiology and Other Data: Diagnostic Imaging: LOLIS BRANNON 1970 [id number] LOLIS BRANNON [id number] Page: [place] [address] Ph.#: [phone] Fax#: [phone] [place] # [id number] Oh Maharaj M.D. Director of Laboratory SURGICAL PATHOLOGY REPORT LOLIS BRANNON [id number] Page: Patient Name: LOLIS BRANNON Pathology Number: [id number] Med.Rec. #: [id number] Collection Date: 04/20/18 Acct. Number#: [id number] Received Date: 04/20/18 : 1970 Location: [facility] Gender: F Status: SOUT Submitting Physician: Jb Zacarias MD Other Physician: Dahiana Baird MD FINAL DIAGNOSIS Ileum, biopsy: -- Chronic, focally active enteritis; see comment. -- Granulomata are not seen. -- Dysplasia is absent. -- No evidence of viral cytopathic effect or parasites. COMMENT: The findings are favored to represent inflammatory bowel disease such as Crohn' s enteritis given the marked architectural distortion, evidence of chronicity. Electronically Signed by: Kourtney Quijano MD Reported on: 04/22/18 105 EKG Data: . Assess/Plan/Problems-Billing Assessment: A/P: 47 yo female with a hx of chronic abdominal pain on methadone and NSAIDs and Crohn's disease complicated by multiple abdominal surgeries now with colectomy and ileostomy p/w non-specific complaints of nausea/emesis, lower abdominal pain and loose output in ostomy. EGD was unremarkable and Ileoscopy showed ileal ulcers (NSAID vs Crohn's disease). She was also noted to have a UTI and is on abx. - Patient Problems (1) Abdominal pain Current Visit: Yes Status: Acute Comment: - Appreciate GI consult - underwent upper endoscopy with Dr. Zacarias 04/20 in which noted narrowing and possible ulcers were seen in the illeum. Biopsies with consistent with probable Crohn's disease. Per Dr. hale, will intiate solumedrol 40mg IV BID for 24 hrs, then may discharge to home afterwards with a tappering dose. - Recommended oral dose upon discharge was 40mg PO x14 days, then 30mg PO x14 days. - Urine cx with no growth, IV Abx d/c'ed - Pain management (2) Crohn disease Current Visit: Yes Status: Acute Comment: - s/p colectomy and ileostomy - Probable acute flare-ups on chronic IBD status. no evidence of excessive NSAIDs use. (3) Electrolyte abnormality Current Visit: Yes Status: Acute Comment: - Mg was low again today 1.4 - IV Mg replaced, check labs in AM (4) Hyponatremia Current Visit: Yes Status: Acute Comment: - Resolving suspect secondary to hypovolemia (5) UTI (urinary tract infection) Current Visit: Yes Status: Suspected Comment: - urine cx - possible contamination recommended resubmitting - recheck UA ceftriaxone started 04/19 - - Rechecked UA with no growth, will d/c Abx (6) DVT prophylaxis Current Visit: No Status: Acute Comment: - SQ Heparin (7) Full code status Current Visit: Yes Status: Acute Status and Disposition: inpatient. Home when medically stable, hopefully by tomorrow.
[2018-04-23] MEDS ORDERED: oxyCODONE TAB* 5 MG TAB PO PRN (16:40)
[2018-04-23] MEDS ORDERED: HYDROmorphone INJ* 0.5 MG/0.5 ML SYRINGE IV SLOW PU ONE (19:05)
[2018-04-24] MEDS ORDERED: predniSONE TAB* 20 MG PO SCH (09:00)
[2018-04-24] MEDS ORDERED: Magnesium Oxide TAB* 400 MG PO SCH (09:00)
[2018-04-24] MEDS ORDERED: METHADONE 10 MG/ML PO PRN (09:04)
[2018-04-24] MEDS ORDERED: Methadone TAB* 10 MG PO ONE (10:00)
[2018-04-24] MEDS: Omeprazole CAP* 20 MG PO SCH (10:17)
[2018-04-24 12:00] VITALS: BP 118/68
--- NOTE | 2018-04-25 01:32 | DS ---
AMENDED REPORT NOW INCLUDES COSIGNER DESIGNATION - ESIGNED BEFORE ADJUSTMENT CC: Dr. Hull, Dr. Zacarias * DISCHARGE SUMMARY: DATE OF ADMISSION: 04/18/18 DATE OF DISCHARGE: 04/24/18 PATIENT OF ATTENDING HOSPITALIST: Dr. Mingo Mittal. ATTENDING HOSPITALIST: While the patient was admitted was Dr. Katty Zhu.* (DICTATED BY REGAN WALLER) PRIMARY CARE PHYSICIAN: Dr. Joshua Silver. CONSULTING NEUROLOGIST: Dr. Rene Diego. PROCEDURES: None. ADMISSION DIAGNOSES: 1. Nausea and vomiting. 2. Abdominal pain. 3. History of Crohn's disease with colectomy and ileostomy. 4. Chronic low back pain for which she has been on methadone for years. 5. Anxiety and depression. 6. History of deep venous thrombosis and pulmonary embolism in the past. DISCHARGE DIAGNOSES: 1. Nausea and vomiting. 2. Abdominal pain. 3. History of Crohn's disease with colectomy and ileostomy. 4. Chronic low back pain for which she has been on methadone for years. 5. Anxiety and depression. 6. History of deep venous thrombosis and pulmonary embolism in the past. ADMITTING PHYSICIAN: Dr. Mingo Mittal. CONSULTATIONS: Dr. Ros Hull and Dr. Jb Zacarias from Gastroenterology. PROCEDURES: EGD with ileoscopy on 04/20/18. BRIEF MEDICAL HISTORY: Ms. Key is a 47-year-old female with past medical history significant for Crohn's disease leading to multiple abdominal surgeries for which she had a total colectomy and end ileostomy in [place]. She also has chronic low back pain and presented to the hospital on 04/18/18 with complaints of nausea, vomiting, and inability to keep any food down as well as worsening abdominal pain than her baseline. She has had multiple previous admissions related to the same issue; however, none recently related to her Crohn's disease. She has had these symptoms for the past few days that has gotten progressively worse. In addition, she noticed increased ostomy output with liquid stools. She has not been seen or followed by any GI doctor in the past couple of years. She has not been on any immunomodulator therapy or any prednisone treatment as well. She denies any excessive NSAID use or any evidence of GI bleed. She had laboratory workup during her ED stay that revealed a normal CBC with no leukocytosis noted. She had a chemistry panel that revealed hyponatremia, hypokalemia, as well as elevated creatinine that was probably consistent with dehydration. Given her ongoing symptoms and her known history of Crohn's, we were asked to see the patient for further evaluation and to consider admission in GI consultation given her known Crohn's disease. HOSPITAL COURSE: The patient was admitted on 04/18/18 under hospitalist services. Consultation by Dr. Hull was obtained on the following day. The patient was started on IV fluids and was given replacement for her potassium and magnesium. She was also given Dilaudid to control her abdominal pain with good improvement. She was seen for GI consultation and recommendations were made for her to proceed with upper endoscopy as well as ileoscopy. Her last endoscopy was done by Dr. Zacarias back in June 2017 that revealed small duodenal ulcers at that time and her biopsies were negative for Crohn's disease. The patient again denied any NSAID use and she has not been on any prednisone therapy since 2012. Her CRP level was normal upon admission. She was covered with PPI, using omeprazole twice daily. She eventually went to the endoscopy suite on 04/20/18 where she had an upper endoscopy and ileoscopy done. She had a normal upper endoscopy; however, she was noted to have multiple ulcerations in her ileoscopy for which biopsies were taken at that time. The patient continued to improve slowly from a clinical standpoint. She continued to have low magnesium level that was replaced daily with IV runs and then p.o. supplement. She was started on clear liquid diet that she eventually tolerated and advanced to full liquids. Her abdominal pain continued to improve on a daily basis for which her Dilaudid was stopped prior to discharge and she was given methadone at her home dose. Her pathology report came back from ileal biopsy that was consistent with chronic inflammation of bowel mucosa that was likely related to Crohn's disease without of any evidence of flare- ups. Given these findings, Gastroenterology recommended to initiate prednisone therapy for which she was given 24 hour doses of Solu-Medrol intravenously and then followed by oral prednisone. On discharge day, the patient was stable and had minimal abdominal pain. Her vitals were stable and continued to be afebrile. Her abdomen was soft and nondistended. Her stoma bag continued to produce liquid brown stool without any evidence of bleeding. Her lungs were clear to auscultation and her heart was regular rate and rhythm. The plan for her was to be discharged home and she will follow up with [facility] in 3 to 4 weeks. DISCHARGE MEDICATIONS: Include: 1. Wellbutrin 150 mg p.o. daily. 2. BuSpar 7.5 mg p.o. b.i.d. 3. Prozac 40 mg p.o. p.o. daily. 4. Methadone oral concentration 30 mg p.o. t.i.d. 5. Phenergan 25 mg p.o. q.6 hours as needed for nausea. 6. Ambien 12.5 mg p.o. q.h.s. as needed for insomnia. 7. Magnesium oxide 400 mg p.o. p.o. daily. 8. Omeprazole 20 mg p.o. b.i.d. 9. Prednisone tablet 40 mg p.o. p.o. daily x14 days, then 30 mg p.o. daily x14 days. DISPOSITION: Discharged to home in a stable condition and to follow up with [facility] in 3 to 4 weeks. I went on and discussed all these discharge instructions with the patient, who fully understood and agreed. TIME SPENT: I spent approximately 45 minutes discharging this patient. REGAN WALLER [id number]/CPS #: [id number] MTDD
== END 2018-04-24 14:20 | disposition home or self-care (01) | DRG 386 ==
LOC: ED 13:29 → MED 21:28 → OBSVTOIN 04-20 16:00
PROVIDERS: ADMIT Internal Medicine; ATTEND Internal Medicine
PROC: 0DB88ZX Excision of Small Intestine, Via Natural or Artificial Opening Endoscopic, Diagnostic (ICD-10-PCS; principal; 2018-04-20)
DX: K50.90 Crohn's disease, unspecified, without complications (principal); E87.1 Hypo-osmolality and hyponatremia; K63.3 Ulcer of intestine; N39.0 Urinary tract infection, site not specified; G89.29 Other chronic pain; M54.5 Low back pain; F41.8 Other specified anxiety disorders; E86.0 Dehydration; F17.210 Nicotine dependence, cigarettes, uncomplicated; E83.51 Hypocalcemia; R06.02 Shortness of breath; N18.9 Chronic kidney disease, unspecified; E83.42 Hypomagnesemia; E87.6 Hypokalemia; R79.89 Other specified abnormal findings of blood chemistry; Z88.8 Allergy status to other drugs, medicaments and biological substances; Z88.5 Allergy status to narcotic agent; Z88.0 Allergy status to penicillin; Z91.041 Radiographic dye allergy status; Z86.718 Personal history of other venous thrombosis and embolism; Z86.711 Personal history of pulmonary embolism; Z93.2 Ileostomy status; Z87.442 Personal history of urinary calculi; Z90.710 Acquired absence of both cervix and uterus; Z90.49 Acquired absence of other specified parts of digestive tract; Z90.721 Acquired absence of ovaries, unilateral; Z86.14 Personal history of Methicillin resistant Staphylococcus aureus infection; Z82.49 Family history of ischemic heart disease and other diseases of the circulatory system; Z83.3 Family history of diabetes mellitus; Z80.9 Family history of malignant neoplasm, unspecified
CPT/HCPCS: 36415; 71045; 80048; 80053; 81003; 81015; 82570; 83605; 83630; 83690; 83735; 84300; 84484; 84702; 85025; 86140; 87045; 87046; 87077; 87086; 87493; 87899; 88305; 93005; 99156; 99157; 99284; A9270-GY; J0696; J0780; J1170; J2175; J2250; J2405; J2920; J3475; J3480; J7512

== ENCOUNTER 2018-07-19 15:04 | Inpatient (IN) | payer MEDICARE ==
[2018-07-19] MEDS ORDERED: HYDROmorphone INJ* 2 MG/ML CARPUJECT SYRINGE IV SLOW PU ONE (15:48)
[2018-07-19] MEDS ORDERED: NS 0.9% 1000 ML* 1,000 ML IV ONE ×2 (15:48→17:13)
[2018-07-19] MEDS ORDERED: Ondansetron INJ* 2 MG/ML VIAL IV ONE (15:49)
--- NOTE | 2018-07-19 15:50 | ED ---
Back Pain - HPI Summary HPI Summary: Pt is a 47 y/o female who presents to the ED c/o low back pain. She states the pain began last night and has been worsening. Pt states this morning she woke up and had blood in her urine and N/V. She has not been able to keep anything down. She notes some mild dysuria but no other true urinary symptoms or fever. Pt now has a stomach ache. She has Crohns but is not on any medications, because she doesnt have any colon left as per . Pt doesnt usually have back pain due to her Crohns. She denies any blood in her colostomy bag. 1 month ago, she was hospitalized in [place] for hyponatremia and high creatinine, and was put on steroids. 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 [employer] - Onset/Duration: Gradual Onset, Lasting Days - Last night, Worse Since Onset/Duration: Still Present Timing: Constant Back Pain Location: Is Discrete @ - Low back Severity Currently: Severe Pain Intensity: 10 Pain Scale Used: 0-10 Numeric Associated Signs And Symptoms: Negative: Fever - Allergies/Home Medications Allergies/Adverse Reactions: Allergies Allergy/AdvReac Type Severity Reaction Status Date / Time acetaminophen [From Tylenol] Allergy Rash Verified 07/19/18 15:30 benzocaine Allergy Anaphylatic Verified 07/19/18 15:30 Shock cyclobenzaprine Allergy Rash Verified 07/19/18 15:30 [From Flexeril] fentanyl Allergy Rash Verified 07/19/18 15:30 Iodinated Contrast- Oral and Allergy Rash Verified 07/19/18 15:30 IV Dye ketorolac [From Toradol] Allergy Hives Verified 07/19/18 15:31 morphine Allergy Rash Verified 07/19/18 15:30 Penicillins Allergy Rash Verified 07/19/18 15:30 patch Allergy Rash Uncoded 07/19/18 15:30 PMH/Surg Hx/FS Hx/Imm Hx Endocrine/Hematology History: Reports: Hx Blood Transfusions, Hx Anemia Cardiovascular History: Reports: Hx Deep Vein Thrombosis, Hx Embolism, Hx Hypotension, Other Cardiovascular Problems/Disorders - Pericarditis Respiratory History: Reports: Hx Pulmonary Embolism, Other Respiratory Problems/ Disorders - HX OF PE X2 GI History: Reports: Hx Crohn's Disease, Hx Obstructive Bowel, Hx Ileostomy - Ileostomy History: Reports: Hx Kidney Infection, Hx Kidney Stones Musculoskeletal History: Reports: Hx Back Problems - sciatic nerve issues Sensory History: Denies: Hx Contacts or Glasses, Hx Hearing Aid Opthamlomology History: Denies: Hx Contacts or Glasses Psychiatric History: Reports: Hx Anxiety - Controlled w meds, Hx Depression - "long time ago", Hx Suicide Attempt - once, Hx Substance Abuse - opioid - Cancer History Hx Chemotherapy: No - Surgical History Surgery Procedure, Year, and Place: LEFT OOPHORECTOMY 2006. CHOLECYSTECTOMY. APPENDECTOMY. TOTAL COLECTOMY with LUQ ILEOSTOMY 2001. CROHNS SURGERY- multiple abd surgeries (prior to 2001) Hx Anesthesia Reactions: No - Immunization History Date of Tetanus Vaccine: Unknown Date of Influenza Vaccine: has not received Infectious Disease History: No Infectious Disease History: Reports: Hx Clostridium Difficile, Hx of Known/ Suspected MRSA Denies: Hx Hepatitis, Hx Human Immunodeficiency Virus (HIV), Traveled Outside the [place] in Last 30 Days - Family History Known Family History: Positive: Cardiac Disease - maternal grandmother, Diabetes - father, uncle, maternal grandmother , Other - Grandparents: [place] - Social History Alcohol Use: None Hx Substance Use: No Substance Use Type: Reports: None Hx Tobacco Use: Yes Smoking Status (MU): Light Every Day Tobacco Smoker Type: Cigarettes Amount Used/How Often: 1/2ppd Have You Smoked in the Last Year: Yes Review of Systems Negative: Fever Positive: Vomiting, Nausea, Other - Stomach ache Positive: hematuria. Negative: dysuria Positive: Myalgia - low back pain All Other Systems Reviewed And Are Negative: Yes Physical Exam - Summary Physical Exam Summary: Appearance: chronically ill appearing, no pain distress, very thin Skin: warm, dry, reflects adequate perfusion Head/face: normal Eyes: EOMI, ALEKSANDRA ENT: mucous membranes moist Neck: supple, non-tender Respiratory: CTA, breath sounds present Cardiovascular: RRR, pulses symmetrical Abdomen: soft, tenderness of bilateral lumbar musculature, ileostomy with normal output with no blood Bowel Sounds: present Musculoskeletal: normal, strength/ROM intact Neuro: normal, sensory motor intact, A&Ox3 Triage Information Reviewed: Yes Vital Signs On Initial Exam: Initial Vitals Temp Pulse Resp BP Pulse Ox 98.6 F 87 16 131/87 100 07/19/18 15:21 07/19/18 15:21 07/19/18 15:21 07/19/18 15:21 07/19/18 15:21 Vital Signs Reviewed: Yes Procedures - Procedure Summary Procedure Summary: Left external jugular IV. Left femoral stick for blood draw. Diagnostics - Vital Signs Vital Signs Temp Pulse Resp BP Pulse Ox 07/19/18 15:21 98.6 F 87 16 131/87 100 - Laboratory Result Diagrams: 07/19/18 16:23 07/19/18 16:23 Lab Statement: Any lab studies that have been ordered have been reviewed, and results considered in the medical decision making process. Back Pain Course/Dx - Course Course Of Treatment: Patient with chronic pain secondary to Crohn's disease presents with dehydration and low sided back pain. She has also had blood in the urine but this was negative on urinalysis. I was able put a 24-gauge angiocatheter in her left external jugular vein. Blood was drawn from her left femoral vein. Her creatinine is elevated over baseline and her sodium is down to 122. She has had this trouble and recurrent fashion. She was hydrated here , treated for pain and wish to be admitted for further treatment. - Diagnoses Differential Diagnosis/HQI/PQRI: Positive: Renal Colic - UTI, renal colic, Crohn 's disease exacerbation, acute kidney injury, dehydration, Other Provider Diagnoses: Chronic pain, Hyponatremia, Acute renal failure - Provider Notifications Discussed Care Of Patient With: Phuong Mendez Time Discussed With Above Provider: 17:45 Instructed by Provider To: Admit As Inpatient - Accepts pt for admission. Discharge - Sign-Out/Discharge Documenting (check all that apply): Patient Departure - Admit - Discharge Plan Condition: Fair Disposition: ADMITTED TO [facility] Referrals: Nadeem CASTILLO,Joshua Montes [Primary Care Provider] - - Billing Disposition and Condition Condition: FAIR Disposition: Admitted to [facility] - Attestation Statements Document Initiated by Scribe: Yes Documenting Scribe: Norma Wall Provider For Whom Lea is Documenting (Include Credential): Benedicto La MD Scribe Attestation: Norma Hyde, scribed for Benedicto La MD on 07/19/18 at 1841. Scribe Documentation Reviewed: Yes Provider Attestation: The documentation as recorded by the Norma jha accurately reflects the service I personally performed and the decisions made by me, Benedicto La MD
[2018-07-19] MEDS ORDERED: HYDROmorphone INJ1* 1 MG/ML SYRINGE ONE (15:52)
[2018-07-19] MEDS ORDERED: HYDROmorphone INJ1* 1 MG/ML SYRINGE IV SLOW PU ONE (16:09)
[2018-07-19 16:42] LABS: ABS Basophils 0 10^3/ul (0-0.2); ABS Eosinophils 0.2 10^3/ul (0-0.6); ABS Lymphocytes 1.5 10^3/ul (1.0-4.8); ABS Monocytes 1.2 10^3/ul (0-0.8); ABS Neutrophils 12.6 10^3/ul (1.5-7.7); ABS Nucleated RBC 0 10^3/ul; Eosinophil % 1.2 % (0-6); Hematocrit 36 % (35-47); Lymphocyte % 9.5 % (25-47); Mean Corpuscular HGB Conc 34 g/dl (31-36); Mean Corpuscular Hemoglobin 28 pg (27-31); Mean Corpuscular Volume 84 fL (80-97); Mean Platelet Volume 8.2 fL (7.4-10.4); Nucleated Red Blood Cells % 0.2; Platelet Count 443 10^3/ul (150-450); Red Blood Count 4.24 10^6/ul (4.00-5.40); Red Cell Distribution Width 16 % (10.5-15); White Blood Count 15.4 10^3/ul (3.5-10.8)
[2018-07-19 16:56] LABS: Urine Appearance Clear; Urine Blood Negative (Negative); Urine Color Yellow; Urine Ketones Negative (Negative); Urine Protein Negative (Negative); Urine Urobilinogen Negative (Negative)
[2018-07-19 16:57] LABS: Urine White Blood Cell 1+(6-10/hpf) (Absent)
[2018-07-19] MEDS ORDERED: busPIRone TAB* 5 MG PO PRN (18:34)
[2018-07-19] MEDS ORDERED: Promethazine TAB* 25 MG PO PRN (18:34)
[2018-07-19] MEDS ORDERED: cefTRIAXone VIAL(*) 500 MG in NS 0.9% 50 ML* 50 ML IVPB SCH (19:00)
[2018-07-19] MEDS ORDERED: METHADONE 10 MG/ML PO SCH (21:00)
[2018-07-19] MEDS: NS 0.9% 1000 ML* 1,000 ML IV SCH (21:31)
[2018-07-19] MEDS: cefTRIAXone VIAL(*) 1,000 MG in NS 0.9% 50 ML* 50 ML IVPB SCH (21:31)
[2018-07-19] MEDS: HYDROmorphone INJ1* 1 MG/ML SYRINGE IV SLOW PU PRN (21:36)
[2018-07-19] MEDS: Omeprazole CAP* 20 MG PO SCH (21:36)
[2018-07-19] MEDS: Enoxaparin(*) 40 MG/0.4 ML SYR SUBCUT SCH (21:37)
--- NOTE | 2018-07-19 23:07 | HP ---
AMENDED REPORT NOW INCLUDES COSIGNER DESIGNATION CC: Dr. Silver * HOSPITAL MEDICINE HISTORY AND PHYSICAL: DATE OF ADMISSION: 07/19/18 PRIMARY CARE PHYSICIAN: Dr. Silver. ATTENDING PHYSICIAN: Dr. Arnie Pulido * (dictation provided by Allyson Hurley NP). CHIEF COMPLAINT: Back pain and dysuria. HISTORY OF PRESENT ILLNESS: Ms. Key is a 47-year-old female with a past medical history of Crohn's disease with associated colectomy and ileostomy, chronic back pain, on methadone therapy, anxiety, depression, and history of DVT /PE, who presents today to the hospital today with concern for worsening back pain associated with dysuria. Ms. Key states that she was in her normal state of health until yesterday when she started feeling some low back pain. She states that the pain was at lower on the back than it is for her normally. Through the night and today, the pain kept getting worse until she was in severe unremitting pain. She also had nausea with vomiting. She felt some dysuria when she urinated and states that she saw blood in the urine as well. The patient was reported to have felt lightheadedness with these symptoms. She denies fever. She denies chest pain or shortness of breath. She denies abdominal pain. In the emergency room, Ms. Key had labs, which showed a urinalysis, which is suspicious for infection with 2+ leuk esterase and 1+ wbc. She had a leukocytosis with a white blood cell count of 15.4. She has a hyponatremia with a sodium of 122 and a mild acute kidney injury with a creatinine of 1.36. Ms. Key states that she was in [place] on vacation with her family when she became ill and had to be hospitalized for 4 days. She reports at that time that she was told she had low sodium and was also treated for her urinary tract infection. PAST MEDICAL HISTORY: 1. Crohn's disease with colectomy and ileostomy. 2. Chronic back pain, on methadone therapy. 3. Anxiety. 4. Depression. 5. History of DVT and PE. MEDICATIONS: 1. Magnesium oxide 400 mg p.o. daily. 2. Ibuprofen p.r.n. 3. Fluoxetine 40 mg p.o. daily. 4. Bupropion XL 150 mg p.o. daily. 5. BuSpar 7.5 mg p.o. b.i.d. p.r.n. 6. Zolpidem CR 12.5 mg p.o. at bedtime p.r.n. 7. Promethazine 25 mg p.o. q.6 hours p.r.n. 8. Omeprazole 20 mg p.o. b.i.d. 9. Methadone 30 mg p.o. t.i.d. ALLERGIES: ACETAMINOPHEN, BENZOCAINE, CYCLOBENZAPRINE, FENTANYL, IV CONTRAST DYE, KETOROLAC, MORPHINE, PENICILLINS, and PATCHES. FAMILY HISTORY: Reported that the patient's mother is alive and well at 64 and has hyperlipidemia. The father is live at 72, but has no past medical history. SOCIAL HISTORY: The patient is a about a half a pack day smoker. She denies alcohol or illicit drug use. She states that her , Abad, would be the healthcare proxy. REVIEW OF SYSTEMS: A 14-point review of systems was completed with Ms. Key and all those not mentioned above were negative. PHYSICAL EXAMINATION GENERAL: Ms. Key is lying in the bed with her at the bedside. She is in no acute distress. VITAL SIGNS: Temperature 98.6, pulse rate 84, respiratory rate 16, O2 saturation 98% on room air, blood pressure 138/94. HEENT: Extraocular movements are intact. LUNGS: Clear to auscultation bilaterally with no accessory muscle use and good aeration. HEART: S1, S2. No murmur, rub or gallop, and regular. ABDOMEN: Soft, it is nontender. She has an ileostomy with liquid brown stool. She has tenderness across her back most notably along the left side in the low back with mild tapping. EXTREMITIES: No cyanosis or edema. NEURO: She is alert. She is oriented x3. She moves all extremities equally. There is no facial asymmetry or focal weakness. SKIN: Intact. DIAGNOSTIC STUDIES/LAB DATA: Sodium 122, potassium 3.2, chloride 89, bicarbonate 22, BUN 12, creatinine 1.36, glucose 95, lactic acid 1.8, CRP 1.37. WBC 15.4, hemoglobin 12.0, hematocrit 36, platelet count 443. Urine shows 2+ leuk esterase and 1+ wbc. ASSESSMENT AND PLAN: Ms. Key is a 47-year-old female with a past medical history of Crohn's disease, anxiety, depression, chronic back pain, and a history of deep venous thrombosis prophylaxis/pulmonary embolism, who presents to the hospital with concern for low back pain associated with nausea, vomiting , dysuria, and blood in the urine. Our plans are for inpatient admission as I expect her length of stay to be greater than 2 days for the followin. Dysuria. I am suspicious that the patient does have urinary tract infection based on her urinalysis and symptoms. I am also concerned about possible pyelonephritis and will plan to check CT abdomen and pelvis now. We will treat with ceftriaxone b.i.d. IV given her nausea given that Cipro can cause QT prolongation with methadone. We will monitor urine cultures closely. 2. Crohn's disease. No evidence of exacerbation or flare. 3. DVT prophylaxis with Lovenox. 4. Depression and anxiety. Continue BuSpar and fluoxetine. We will hold bupropion as it is non-formulary. 5. Hyponatremia. Plan to hydrate. Recheck labs in the a.m. We will also check magnesium level as this has been low in the past. 6. Acute kidney injury. Plan to hold ibuprofen and dose all medications renally as needed. 7. Code status is full code. TIME SPENT: Approximately 60 minutes were spent on the admission of this patient, more than half the time spent with the patient at the bedside reviewing the events leading up to this hospitalization, performing the physical examination, and reviewing my plan of care. Mandy HURLEY NP [id number]/CPS #: [id number] WILLIAM
[2018-07-20] MEDS: HYDROmorphone INJ1* 1 MG/ML SYRINGE IV SLOW PU PRN ×5 (01:33→22:16)
[2018-07-20] MEDS: Omeprazole CAP* 20 MG PO SCH ×2 (08:50→16:54)
[2018-07-20] MEDS: Magnesium Oxide TAB* 400 MG PO SCH (08:50)
[2018-07-20] MEDS: FLUoxetine CAP* 20 MG PO SCH (08:50)
[2018-07-20] MEDS: NS 0.9% 1000 ML* 1,000 ML IV SCH (09:52)
[2018-07-20 11:06] LABS: ABS Basophils 0.1 10^3/ul (0-0.2); ABS Eosinophils 0.2 10^3/ul (0-0.6); ABS Lymphocytes 0.9 10^3/ul (1.0-4.8); ABS Monocytes 0.7 10^3/ul (0-0.8); ABS Nucleated RBC 0 10^3/ul; Eosinophil % 2.1 % (0-6); Hematocrit 31 % (35-47); Hemoglobin 10.3 g/dl (12.0-16.0); Lymphocyte % 9.9 % (25-47); Mean Corpuscular HGB Conc 33 g/dl (31-36); Mean Corpuscular Hemoglobin 28 pg (27-31); Mean Corpuscular Volume 86 fL (80-97); Nucleated Red Blood Cells % 0; Platelet Count 283 10^3/ul (150-450); Red Blood Count 3.63 10^6/ul (4.00-5.40); Red Cell Distribution Width 15 % (10.5-15); White Blood Count 8.7 10^3/ul (3.5-10.8)
[2018-07-20 11:24] LABS: EGFR Non-African American 47.7 (>60)
[2018-07-20] MEDS ORDERED: Potassium Chlor TAB* 20 MEQ TAB.ER PO ONE ×2 (11:33→17:30)
[2018-07-20] MEDS ORDERED: Magnesium Sulf 4 GM/100 ML IV* 4,000 MG/100 ML BAG IVPB ONE (11:42)
[2018-07-20] MEDS ORDERED: NS 0.9% 1000 ML* 1,000 ML IV ONE (11:47)
[2018-07-20] MEDS ORDERED: NS 0.9% 500 ML* 500 ML IV ONE (11:47)
[2018-07-20] MEDS ORDERED: HYDROmorphone INJ1* 1 MG/ML SYRINGE IV SLOW PU PRN (13:51)
--- NOTE | 2018-07-20 14:03 | PN ---
Subjective Date of Service: 07/20/18 Interval History: Pt endorsing 7/10 lower back/flank pain different than her usual chronic back pain. Still endorsing crampy dysuria, and alternating between frequency and having to push to to urinate. Also endorses 5/10 abdominal pain and nausea after eating soup. She does endorse some baseline abdominal pain due to her Crohn's disease, but says this is slightly worse than usual. Denies chest pain, shortness of breath, dizziness, headache. Illeostomy draining like normal. Objective Active Medications: Buspirone HCl (Buspar Tab*) 7.5 mg PO BID PRN PRN Reason: ANXIETY Enoxaparin Sodium (Lovenox(*)) 40 mg SUBCUT Q24H [facility] Last Admin: 07/19/18 21:37 Dose: 40 mg Fluoxetine HCl (Prozac Cap*) 40 mg PO DAILY [facility] Last Admin: 07/20/18 08:50 Dose: 40 mg Hydromorphone HCl (Dilaudid Inj1s*) 1 mg IV SLOW PU Q3H PRN PRN Reason: PAIN Sodium Chloride (Ns 0.9% 1000 Ml*) 1,000 mls @ 100 mls/hr IV PER RATE [facility] Last Admin: 07/20/18 09:52 Dose: 100 mls/hr Ceftriaxone Sodium 1,000 mg/ (Sodium Chloride) 50 mls @ 200 mls/hr IVPB Q24H [facility] Last Admin: 07/19/18 21:31 Dose: 200 mls/hr Magnesium Sulfate (Magnesium Sulf 4 Gm/100 Ml Iv*) 4,000 mg in 100 mls @ 33.333 mls/hr IVPB ONCE ONE Stop: 07/20/18 14:41 Last Admin: 07/20/18 12:16 Dose: 33.333 mls/hr Magnesium Oxide (Magox 400 Tab*) 400 mg PO DAILY [facility] Last Admin: 07/20/18 08:50 Dose: 400 mg Omeprazole (Prilosec Cap*) 20 mg PO BID@0730,1630 [facility] Last Admin: 07/20/18 08:50 Dose: 20 mg Potassium Chloride (Klor Con Er Tab*) 40 meq PO ONCE ONE Stop: 07/20/18 17:31 Promethazine HCl (Phenergan Tab*) 25 mg PO Q6H PRN PRN Reason: NAUSEA Zolpidem Tartrate (Ambien Tab*) 10 mg PO BEDTIME PRN PRN Reason: INSOMNIA Vital Signs - 8 hr 07/20/18 07/20/18 07/20/18 06:48 09:52 11:34 Temperature 97.1 F Pulse Rate 87 Respiratory 16 16 16 Rate Blood Pressure 131/62 (mmHg) O2 Sat by Pulse 100 Oximetry 07/20/18 11:56 Temperature Pulse Rate Respiratory 16 Rate Blood Pressure (mmHg) O2 Sat by Pulse Oximetry Oxygen Devices in Use Now: None Appearance: Flank pain/CVA tenderness, L>R Eyes: No Scleral Icterus, PERRLA Ears/Nose/Mouth/Throat: NL Teeth, Lips, Gums, Mucous Membranes Moist Neck: NL Appearance and Movements; NL JVP Respiratory: Symmetrical Chest Expansion and Respiratory Effort, Clear to Auscultation Cardiovascular: NL Sounds; No Murmurs; No JVD, RRR, No Edema Abdominal: - - Diffuse abdominal pain worse in LUQ. Do distention. [place] ostomy with green-brown output Extremities: No Edema, No Clubbing, Cyanosis Skin: No Rash or Ulcers, No Nodules or Sclerosis Neurological: Alert and Oriented x 3, NL Muscle Strength and Tone Lines/Tubes/Other Access: Clean, Dry and Intact Peripheral IV Nutrition: Taking PO's Result Diagrams: 07/20/18 10:35 07/20/18 10:35 Assess/Plan/Problems-Billing Assessment: - Patient Problems (1) UTI (urinary tract infection) Current Visit: No Status: Suspected Comment: - Left CVA tenderness and dysuria, WBC 15 but afebrile on presentation, trended down to 8.7 today. Lactic acid 2.4 today. Given 1.5L IVF bolus (30ml/kg). Will f /u. - Multiple admissions for UTI treated here, and most recently hopitalized in [place] with UTI - treated with levaquin. - UA with 2+ leuk esterase +1 WBC. Culture results pending, however started on ceftiaxone given history and presentation - Blood cultures pending - Abd CT without hydronephrosis, however will do U/S given symptoms as it is a more specific test - Pain control with IV dilauded. Will continue this and titrate down as pain resolves. Takes methadone at home for chronic back pain. (2) Chronic abdominal pain Current Visit: No Status: Acute Code(s): R10.9 - UNSPECIFIED ABDOMINAL PAIN ; G89.29 - OTHER CHRONIC PAIN SNOMED Code(s): 967374562 Comment: - Continue dilauded with plan to taper and restart methadone (3) Crohn disease Current Visit: No Status: Acute Code(s): K50.90 - CROHN'S DISEASE, UNSPECIFIED, WITHOUT COMPLICATIONS SNOMED Code(s): 62331379 Comment: - s/p colectomy and ileostomy (4) Electrolyte abnormality Current Visit: No Status: Acute Code(s): E87.8 - OTH DISORDERS OF ELECTROLYTE AND FLUID BALANCE, NEC SNOMED Code(s): 493163263 Comment: - Sodium 122 on admission, now 129 after NS adminisration. Likely hypovolemic as improved with volume, however will check urine electrolytes. Cr also improved with volume and appears to be at recent baseline. - K 3.1 this AM. Repleted with 40 meq PO K. Receck this afternnon. Might have to do IV if malabsorption with PO. - Mag 1.0 today. Repleated with 4g Mag. Recheck AM. - Pt does have hx of multiple electrolye abnormalities on previous admissions (5) DVT prophylaxis Current Visit: No Status: Acute Code(s): PLO4102 - SNOMED Code(s): 663014420 Comment: - Lovesukhx (6) Full code status Current Visit: No Status: Acute Code(s): Z78.9 - OTHER SPECIFIED HEALTH STATUS SNOMED Code(s): 878129671
[2018-07-20 19:07] LABS: EGFR Non-African American 44.7 (>60)
[2018-07-20] MEDS: cefTRIAXone VIAL(*) 1,000 MG in NS 0.9% 50 ML* 50 ML IVPB SCH (21:21)
[2018-07-20] MEDS: Enoxaparin(*) 40 MG/0.4 ML SYR SUBCUT SCH (21:26)
[2018-07-21] MEDS: HYDROmorphone INJ1* 1 MG/ML SYRINGE IV SLOW PU PRN ×3 (02:14→10:36)
[2018-07-21] MEDS: NS 0.9% 1000 ML* 1,000 ML IV SCH ×2 (02:47→14:49)
[2018-07-21] MEDS: Omeprazole CAP* 20 MG PO SCH ×2 (07:49→16:24)
[2018-07-21] MEDS: Magnesium Oxide TAB* 400 MG PO SCH (07:49)
[2018-07-21] MEDS: FLUoxetine CAP* 20 MG PO SCH (07:49)
[2018-07-21 08:30] LABS: ABS Basophils 0.1 10^3/ul (0-0.2); ABS Eosinophils 0.2 10^3/ul (0-0.6); ABS Lymphocytes 0.8 10^3/ul (1.0-4.8); ABS Monocytes 0.9 10^3/ul (0-0.8); ABS Neutrophils 6.6 10^3/ul (1.5-7.7); ABS Nucleated RBC 0 10^3/ul; Hematocrit 32 % (35-47); Hemoglobin 10.2 g/dl (12.0-16.0); Lymphocyte % 9.2 % (25-47); Mean Corpuscular HGB Conc 32 g/dl (31-36); Mean Corpuscular Hemoglobin 28 pg (27-31); Mean Corpuscular Volume 87 fL (80-97); Mean Platelet Volume 8.2 fL (7.4-10.4); Nucleated Red Blood Cells % 0; Platelet Count 265 10^3/ul (150-450); Red Blood Count 3.63 10^6/ul (4.00-5.40); Red Cell Distribution Width 16 % (10.5-15); White Blood Count 8.5 10^3/ul (3.5-10.8)
[2018-07-21 08:51] LABS: EGFR Non-African American 61.4 (>60)
[2018-07-21] MEDS ORDERED: Magnesium Sulfate 1 GM IV* 1 GM/100 ML BAG IV ONE (08:56)
[2018-07-21] MEDS ORDERED: HYDROmorphone INJ1* 1 MG/ML SYRINGE IV SLOW PU PRN ×2 (12:39→16:34)
[2018-07-21] MEDS: Methadone TAB* 10 MG PO SCH ×2 (14:49→20:53)
--- NOTE | 2018-07-21 15:07 | PN ---
Subjective Date of Service: 07/21/18 Interval History: Pt still endorsing severe flank pain/CVA tenderness and dysuria which she describes not as burning, but as straining. Does endorse abdominal tenderness at her baseline of 5/10 as well as nausea with any solid food intake but no vomiting. Reports illeostomy drainage is at baseline. Denies shortness of breath , headache, dizziness, headache. Objective Active Medications: Buspirone HCl (Buspar Tab*) 7.5 mg PO BID PRN PRN Reason: ANXIETY Enoxaparin Sodium (Lovenox(*)) 40 mg SUBCUT Q24H [facility] Last Admin: 07/20/18 21:26 Dose: 40 mg Fluoxetine HCl (Prozac Cap*) 40 mg PO DAILY [facility] Last Admin: 07/21/18 07:49 Dose: 40 mg Hydromorphone HCl (Dilaudid Inj1s*) 0.5 mg IV SLOW PU Q4H PRN PRN Reason: PAIN Sodium Chloride (Ns 0.9% 1000 Ml*) 1,000 mls @ 100 mls/hr IV PER RATE [facility] Last Admin: 07/21/18 14:49 Dose: 100 mls/hr Ceftriaxone Sodium 1,000 mg/ (Sodium Chloride) 50 mls @ 200 mls/hr IVPB Q24H [facility] Last Admin: 07/20/18 21:21 Dose: 200 mls/hr Magnesium Oxide (Magox 400 Tab*) 400 mg PO DAILY [facility] Last Admin: 07/21/18 07:49 Dose: 400 mg Methadone HCl (Dolophine Tab*) 30 mg PO TID [facility] Last Admin: 07/21/18 14:49 Dose: 30 mg Omeprazole (Prilosec Cap*) 20 mg PO BID@0730,1630 [facility] Last Admin: 07/21/18 07:49 Dose: 20 mg Promethazine HCl (Phenergan Tab*) 25 mg PO Q6H PRN PRN Reason: NAUSEA Last Admin: 07/21/18 14:49 Dose: 25 mg Zolpidem Tartrate (Ambien Tab*) 10 mg PO BEDTIME PRN PRN Reason: INSOMNIA Vital Signs - 8 hr 07/21/18 07/21/18 07/21/18 07:15 08:00 08:22 Pulse Rate 71 Respiratory 16 16 Rate Blood Pressure 112/70 (mmHg) O2 Sat by Pulse 100 Oximetry 07/21/18 07/21/18 07/21/18 10:36 11:36 14:49 Pulse Rate Respiratory 18 16 17 Rate Blood Pressure (mmHg) O2 Sat by Pulse Oximetry Oxygen Devices in Use Now: None Appearance: Costovertebral angle tenderness bilaterally that radiates to lower back Eyes: No Scleral Icterus, PERRLA Ears/Nose/Mouth/Throat: NL Teeth, Lips, Gums, Mucous Membranes Moist Neck: NL Appearance and Movements; NL JVP Respiratory: Symmetrical Chest Expansion and Respiratory Effort, Clear to Auscultation Cardiovascular: NL Sounds; No Murmurs; No JVD, RRR, No Edema Abdominal: NL Sounds; No Tenderness; No Distention, - - [place] ostomy draining green-brown liquid Extremities: No Edema, No Clubbing, Cyanosis Skin: No Rash or Ulcers, No Nodules or Sclerosis Neurological: Alert and Oriented x 3, NL Muscle Strength and Tone Lines/Tubes/Other Access: Clean, Dry and Intact Peripheral IV Result Diagrams: 07/21/18 08:11 07/21/18 08:15 Microbiology and Other Data: Microbiology 07/20/18 11:48 Aerobic Blood Culture - Preliminary Blood Venous No Growth Day 1 Anaerobic Blood Culture - Preliminary No Growth Day 1 07/19/18 16:23 Urine Culture - Final Urine Strep Group B Assess/Plan/Problems-Billing Assessment: 47 year old female with PMH Crohn's Disease with colectomy and ileostomy and chronic low back pain on methadone, hx DVT and PE admitted for dysuria, flank pain, N/V - Patient Problems (1) Flank pain Current Visit: Yes Status: Acute Code(s): R10.9 - UNSPECIFIED ABDOMINAL PAIN SNOMED Code(s): 604625851 Comment: - Pt reports ongoing severe CVA tenderness/lower back pain and dysuria - UA with 2+ leuk esterase +1 WBC. Culture results with strep group B, likely contamination. Completed 2 days of ceftiaxone, but will d/c given culture results. - Afebrile, leukocytosis has resolved. Lactic acid 2.4 yesterday resolved with fluid bolus. - Blood cultures negative to date - Abd CT without hydronephrosis. U/S also without hydronephrosis. - Pt still endorsing severe lower back/flank pain. Have restarted her home methadone and reduced her PRN dilauded from 1mg to 0.5mg (2) Chronic abdominal pain Current Visit: No Status: Acute Code(s): R10.9 - UNSPECIFIED ABDOMINAL PAIN ; G89.29 - OTHER CHRONIC PAIN SNOMED Code(s): 481398858 Comment: - Restarted methadone and cut dilauded to 0.5mg - Consulted Dr. Danielle for further recommendations about pain management (3) Crohn disease Current Visit: No Status: Acute Code(s): K50.90 - CROHN'S DISEASE, UNSPECIFIED, WITHOUT COMPLICATIONS SNOMED Code(s): 64715263 Comment: - s/p colectomy and ileostomy - Pt is endorsing nausea today with any food intake but no vomiting. Reports to me that she has only been eating clears. Have instructed her to try to keep down PO today. Of note, pt's nurse says she is tolerating solid food fine and has been yesterday as well. (4) Electrolyte abnormality Current Visit: No Status: Acute Code(s): E87.8 - OTH DISORDERS OF ELECTROLYTE AND FLUID BALANCE, NEC SNOMED Code(s): 104416952 Comment: - Electrolyte abnormalities improoved with fluids and repletion. Likely due to volume depletion secondary to vomiting - Sodium 122-->134 after NS adminisration - K 3.6 today after supplimentation yesterday - Mag 1.6 today from 1.0 yesterday. Given additional 1g IV Mag as well as her PO which she takes regularly - Pt does have hx of multiple electrolye abnormalities on previous admissions (5) CKD (chronic kidney disease) Current Visit: No Status: Acute Code(s): N18.9 - CHRONIC KIDNEY DISEASE, UNSPECIFIED SNOMED Code(s): 732618264 Comment: - Cr 0.98 and GFR of 61 is around baseline - U/S with incidental finding of non obstructing echogenic foci in bilateral lower pole collecting system - Pt was instructed by hospitalist in [place] to follow up with a government gauger as an outpatient and I re-enforced this suggestion. (6) DVT prophylaxis Current Visit: No Status: Acute Code(s): MQO5293 - SNOMED Code(s): 031557815 Comment: - Lovenox (7) Full code status Current Visit: No Status: Acute Code(s): Z78.9 - OTHER SPECIFIED HEALTH STATUS SNOMED Code(s): 915242629 Status and Disposition: Inpatient Attending: Arnie Pulido
--- NOTE | 2018-07-21 16:27 | CONSULT ---
Consult Consult: INPATIENT PAIN CONSULTATION Ayesha Key is a 47 year old female. She has had Crohn's disease for many years. She has pain in her belly from Crohn's disease. She sees her primary care doctor in [facility] and has been on chronic Methadone for 15-20 years. She is prescribed 30 mg TID by her primary care provider. The patient tells me she developed flank pain and dysuria while she was in [facility] over the summer. She was hospitalized in [place]. She was told to follow up with a renal specialist. She flew back to [place]. She has not seen her primary care doctor yet. She developed severe back pain and dysuria again after returning to the area. She presented to the ER and was adnmitted. I am asked to see her. PAST MEDICAL HISTORY: Crohn's disease Allergies Allergy/AdvReac Type Severity Reaction Status Date / Time acetaminophen [From Tylenol] Allergy Rash Verified 07/19/18 15:30 benzocaine Allergy Anaphylatic Verified 07/19/18 15:30 Shock cyclobenzaprine Allergy Rash Verified 07/19/18 15:30 [From Flexeril] fentanyl Allergy Rash Verified 07/19/18 15:30 Iodinated Contrast- Oral and Allergy Rash Verified 07/19/18 15:30 IV Dye ketorolac [From Toradol] Allergy Hives Verified 07/19/18 15:31 morphine Allergy Rash Verified 07/19/18 15:30 Penicillins Allergy Rash Verified 07/19/18 15:30 patch Allergy Rash Uncoded 07/19/18 15:30 Current Medications Buspirone HCl (Buspar Tab*) 7.5 mg PO BID PRN PRN Reason: ANXIETY Enoxaparin Sodium (Lovenox(*)) 40 mg SUBCUT Q24H [facility] Last Admin: 07/20/18 21:26 Dose: 40 mg Fluoxetine HCl (Prozac Cap*) 40 mg PO DAILY [facility] Last Admin: 07/21/18 07:49 Dose: 40 mg Hydromorphone HCl (Dilaudid Inj1s*) 0.5 mg IV SLOW PU Q4H PRN PRN Reason: PAIN Last Admin: 07/21/18 16:25 Dose: 0.5 mg Sodium Chloride (Ns 0.9% 1000 Ml*) 1,000 mls @ 100 mls/hr IV PER RATE [facility] Last Admin: 07/21/18 14:49 Dose: 100 mls/hr Magnesium Oxide (Magox 400 Tab*) 400 mg PO DAILY [facility] Last Admin: 07/21/18 07:49 Dose: 400 mg Methadone HCl (Dolophine Tab*) 30 mg PO TID [facility] Last Admin: 07/21/18 14:49 Dose: 30 mg Omeprazole (Prilosec Cap*) 20 mg PO BID@0730,1630 [facility] Last Admin: 07/21/18 16:24 Dose: 20 mg Promethazine HCl (Phenergan Tab*) 25 mg PO Q6H PRN PRN Reason: NAUSEA Last Admin: 07/21/18 14:49 Dose: 25 mg Zolpidem Tartrate (Ambien Tab*) 10 mg PO BEDTIME PRN PRN Reason: INSOMNIA SOCIAL HISTORY: 09/11 ppd smoker, non drinker. Lives with her Vital Signs Temp Pulse Resp BP Pulse Ox 98.1 F 71 16 112/70 100 07/21/18 03:58 07/21/18 08:22 07/21/18 16:25 07/21/18 08:22 07/21/18 08:22 EXAM: LUNGS: Clear HEART: reg rhythm ABDOMEN: Soft BACK: Some tenderness NEUROLOGIC: Moves 4 extremities ASSESSMENT: 1. Crohn's Disease 2. Chronic abdominal Pain 3. Low Back Pain PLAN: Not sure what is driving her pain. Agree with resuming PO methadone and taper of IV pain medications. Can try PO Morphine when IV discontinued. I will follow
[2018-07-21] MEDS: HYDROmorphone TAB* 2 MG PO PRN (20:02)
[2018-07-21] MEDS: Enoxaparin(*) 40 MG/0.4 ML SYR SUBCUT SCH (20:04)
[2018-07-22] MEDS: HYDROmorphone TAB* 2 MG PO PRN ×2 (01:16→16:39)
[2018-07-22] MEDS: NS 0.9% 1000 ML* 1,000 ML IV SCH ×2 (01:20→10:29)
[2018-07-22] MEDS: Methadone TAB* 10 MG PO SCH ×3 (08:31→20:12)
[2018-07-22] MEDS: FLUoxetine CAP* 20 MG PO SCH (08:32)
[2018-07-22] MEDS: Magnesium Oxide TAB* 400 MG PO SCH (08:32)
[2018-07-22] MEDS: Omeprazole CAP* 20 MG PO SCH ×2 (08:32→16:22)
[2018-07-22] MEDS ORDERED: Magnesium Sulf 4 GM/100 ML IV* 4,000 MG/100 ML BAG IVPB ONE (09:15)
[2018-07-22] MEDS ORDERED: HYDROmorphone INJ1* 1 MG/ML SYRINGE IV SLOW PU PRN (11:04)
--- NOTE | 2018-07-22 13:42 | PN ---
Progress Note - Progress Note Date of Service: 07/22/18 Note: INPATIENT PAIN-PROGRESS Ayesha visited. She wants the IV dilaudid back, but seems to be doing fairly well with PO. She still notes pain over her low back on both sides worse when she tries to urinate. Have cut IV dilaudid back significantly. 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 Normally, in addition to Methadone, she takes Soma, 350 mg 3-4 times a day and Ambien CR 12.5 mg at HS. She tells me she also normally is on Wellbutrin and Buspar. She does not know the dose of Wellbutrin, thinks Buspar is 7.5 mg BID. I called Dr. Silver's office who reported her dose is Wellbutrin XL 150 mg daily Current Medications Buspirone HCl (Buspar Tab*) 7.5 mg PO BID PRN PRN Reason: ANXIETY Enoxaparin Sodium (Lovenox(*)) 40 mg SUBCUT Q24H [facility] Last Admin: 07/21/18 20:04 Dose: 40 mg Fluoxetine HCl (Prozac Cap*) 40 mg PO DAILY [facility] Last Admin: 07/22/18 08:32 Dose: 40 mg Hydromorphone HCl (Dilaudid Tab*) 2 mg PO Q4H PRN PRN Reason: PAIN Last Admin: 07/22/18 01:16 Dose: 2 mg Hydromorphone HCl (Dilaudid Inj1s*) 0.5 mg IV SLOW PU Q8H PRN PRN Reason: PAIN - UNCONTROLLED Magnesium Oxide (Magox 400 Tab*) 400 mg PO DAILY [facility] Last Admin: 07/22/18 08:32 Dose: 400 mg Methadone HCl (Dolophine Tab*) 30 mg PO TID [facility] Last Admin: 07/22/18 08:31 Dose: 30 mg Omeprazole (Prilosec Cap*) 20 mg PO BID@0730,1630 [facility] Last Admin: 07/22/18 08:32 Dose: 20 mg Promethazine HCl (Phenergan Tab*) 25 mg PO Q6H PRN PRN Reason: NAUSEA Last Admin: 07/21/18 14:49 Dose: 25 mg Zolpidem Tartrate (Ambien Tab*) 10 mg PO BEDTIME PRN PRN Reason: INSOMNIA Vital Signs Temp Pulse Resp BP Pulse Ox 98.0 F 76 14 112/60 100 11/14/18 07:40 07/22/18 11:18 07/22/18 10:30 07/22/18 11:18 07/22/18 11:18 EXAM: No scoliosis. No real tightness in back muscles. Diffusely tender over her low back, on both the left and right, including under paraspinal areas and costovertebral angle bilaterally. Neurologically intact. ASSESSMENT: 1. Low back pain with dysuria 2. Crohn's disease PLAN: Will change Buspar to BID scheduled, add Soma, 350 mg TID PRN. Will add back Wellbutrin. She normally takes liquid Methadone, this change may contribute to her pain. . I think she looks ok on PO dilaudid and Methadone, can increase dilaudid to 4 mg if necessary, but would leave on 2 mg for now. I' ll follow.
[2018-07-22 14:46] LABS: EGFR Non-African American 54.3 (>60)
--- NOTE | 2018-07-22 16:19 | PN ---
Subjective Date of Service: 07/22/18 Interval History: Patient is still in significant pain which is worse with urination. Patient denies frequency, retention, or other urinary symptoms. Patient has persistent nausea without vomiting. Patient has baseline abdominal pain and no change in her stoma output. Patient denies F/C, CP, SOB, dizziness, palpitations, or other pain. Family History: Unchanged from Admission Social History: Unchanged from Admission Past Medical History: Unchanged from Admission Objective Active Medications: Bupropion HCl (Wellbutrin Xl *) 150 mg PO DAILY [facility]; Protocol Buspirone HCl (Buspar Tab*) 7.5 mg PO BID [facility] Carisoprodol (Soma Tab*) 350 mg PO TID PRN PRN Reason: SPASMS - BACK Enoxaparin Sodium (Lovenox(*)) 40 mg SUBCUT Q24H [facility] Last Admin: 07/21/18 20:04 Dose: 40 mg Fluoxetine HCl (Prozac Cap*) 40 mg PO DAILY [facility] Last Admin: 07/22/18 08:32 Dose: 40 mg Hydromorphone HCl (Dilaudid Tab*) 2 mg PO Q4H PRN PRN Reason: PAIN Last Admin: 07/22/18 01:16 Dose: 2 mg Hydromorphone HCl (Dilaudid Inj1s*) 0.5 mg IV SLOW PU Q8H PRN PRN Reason: PAIN - UNCONTROLLED Magnesium Oxide (Magox 400 Tab*) 400 mg PO DAILY [facility] Last Admin: 07/22/18 08:32 Dose: 400 mg Methadone HCl (Dolophine Tab*) 30 mg PO TID [facility] Last Admin: 07/22/18 14:16 Dose: 30 mg Omeprazole (Prilosec Cap*) 20 mg PO BID@0730,1630 [facility] Last Admin: 07/22/18 08:32 Dose: 20 mg Promethazine HCl (Phenergan Tab*) 25 mg PO Q6H PRN PRN Reason: NAUSEA Last Admin: 07/21/18 14:49 Dose: 25 mg Zolpidem Tartrate (Ambien Tab*) 10 mg PO BEDTIME PRN PRN Reason: INSOMNIA Vital Signs - 8 hr 07/22/18 07/22/18 07/22/18 08:31 10:30 11:18 Pulse Rate 76 Respiratory 16 14 Rate Blood Pressure 112/60 (mmHg) O2 Sat by Pulse 100 Oximetry 07/22/18 14:16 Pulse Rate Respiratory 16 Rate Blood Pressure (mmHg) O2 Sat by Pulse Oximetry Oxygen Devices in Use Now: None Appearance: Patient is a 47yo female who appears older than stated age and is sitting in the bed in NAD. Eyes: No Scleral Icterus, PERRLA Ears/Nose/Mouth/Throat: NL Teeth, Lips, Gums, Clear Oropharnyx, Mucous Membranes Moist Neck: NL Appearance and Movements; NL JVP, Trachea Midline Respiratory: Symmetrical Chest Expansion and Respiratory Effort, Clear to Auscultation Cardiovascular: NL Sounds; No Murmurs; No JVD, RRR, No Edema Abdominal: - - Scaphoid, Hyperactive bowel sounds, Ostomy present at midline without signs of ischemia. Producing adequate liquid stool. Lymphatic: No Cervical Adenopathy Extremities: No Edema, No Clubbing, Cyanosis Skin: No Rash or Ulcers, No Nodules or Sclerosis Neurological: Alert and Oriented x 3, NL Sensation, NL Muscle Strength and Tone , - - CN II-XII intact. Result Diagrams: 07/21/18 08:11 07/22/18 14:23 Microbiology and Other Data: Microbiology 07/20/18 11:48 Aerobic Blood Culture - Preliminary Blood Venous No Growth Day 1 Anaerobic Blood Culture - Preliminary No Growth Day 1 07/19/18 16:23 Urine Culture - Final Urine Strep Group B Assess/Plan/Problems-Billing Assessment: 47 year old female with PMH Crohn's Disease with colectomy and ileostomy and chronic low back pain on methadone, hx DVT and PE admitted for dysuria, flank pain, N/V and hyponatremia who is improving slightly and being weaned off of IV pain medications. - Patient Problems (1) Flank pain Current Visit: Yes Status: Acute Code(s): R10.9 - UNSPECIFIED ABDOMINAL PAIN SNOMED Code(s): 538162257 Comment: - Pt reports ongoing severe CVA tenderness/lower back pain and dysuria - UA with 2+ leuk esterase +1 WBC. Culture results not indicative of UTI, discontinued antibiotics. - Afebrile, leukocytosis has resolved. Lactic acid normal - Blood cultures negative to date - Abd CT without hydronephrosis. U/S also without hydronephrosis. - Pt still endorsing severe lower back/flank pain. Appreciate pain management consult - Wean IV dilaudid, start oral, resume home adjunctive therapies. - Discussed case with Urology who reviewed images and stated that they would not explain her symptoms and ultrasound findings did not represent kidney stones. (2) Abdominal pain Current Visit: No Status: Acute Priority: High Code(s): R10.9 - UNSPECIFIED ABDOMINAL PAIN SNOMED Code(s): 04441100 Comment: - Appreciate GI consult - underwent upper endoscopy with Dr. Zacarias 04/20 in which noted narrowing and possible ulcers were seen in the illeum. Biopsies with consistent with probable Crohn's disease. Per Dr. hale, will intiate solumedrol 40mg IV BID for 24 hrs, then may discharge to home afterwards with a tappering dose. - Recommended oral dose upon discharge was 40mg PO x14 days, then 30mg PO x14 days. - Urine cx with no growth, IV Abx d/c'ed - Pain management (3) Acute kidney failure Current Visit: No Status: Acute Priority: Medium Comment: - At baseline, likely due to dehydration. No obstruction. (4) CKD (chronic kidney disease) Current Visit: No Status: Acute Code(s): N18.9 - CHRONIC KIDNEY DISEASE, UNSPECIFIED SNOMED Code(s): 757105510 Comment: - Cr 0.98 and GFR of 61 is around baseline - U/S with incidental finding of non obstructing echogenic foci in bilateral lower pole collecting system not representing stones - Will need outpatient follow up and possibly repeat imaging. (5) Chronic abdominal pain Current Visit: No Status: Acute Code(s): R10.9 - UNSPECIFIED ABDOMINAL PAIN ; G89.29 - OTHER CHRONIC PAIN SNOMED Code(s): 443757491 Comment: - Restarted methadone and taper dilaudid - Pain still uncontrolled - Oral dilaudid and soma. 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 (7) Hyponatremia Current Visit: No Status: Acute Code(s): E87.1 - HYPO-OSMOLALITY AND HYPONATREMIA SNOMED Code(s): 36240399 Comment: - Improving, chronic - Likely due to SIADH from medications and vomiting or low solute intake. - Urine electrolytes taken when patient's sodium was improving. (8) DVT prophylaxis Current Visit: No Status: Acute Code(s): IEM8345 - SNOMED Code(s): 556960858 Comment: - SQ heparin. (9) Full code status Current Visit: No Status: Acute Code(s): Z78.9 - OTHER SPECIFIED HEALTH STATUS SNOMED Code(s): 913887931 Status and Disposition: Inpatient
[2018-07-22] MEDS: busPIRone TAB* 5 MG PO SCH (20:11)
[2018-07-22] MEDS: Enoxaparin(*) 40 MG/0.4 ML SYR SUBCUT SCH (20:12)
[2018-07-23] MEDS: Omeprazole CAP* 20 MG PO SCH ×2 (06:32→16:20)
[2018-07-23 06:38] LABS: ABS Basophils 0.1 10^3/ul (0-0.2); ABS Eosinophils 0.3 10^3/ul (0-0.6); ABS Lymphocytes 1.1 10^3/ul (1.0-4.8); ABS Monocytes 0.8 10^3/ul (0-0.8); ABS Neutrophils 5.6 10^3/ul (1.5-7.7); ABS Nucleated RBC 0 10^3/ul; Eosinophil % 4.1 % (0-6); Hematocrit 31 % (35-47); Hemoglobin 10.3 g/dl (12.0-16.0); Lymphocyte % 13.8 % (25-47); Mean Corpuscular HGB Conc 34 g/dl (31-36); Mean Corpuscular Hemoglobin 29 pg (27-31); Mean Corpuscular Volume 86 fL (80-97); Mean Platelet Volume 8.1 fL (7.4-10.4); Nucleated Red Blood Cells % 0; Platelet Count 219 10^3/ul (150-450); Red Blood Count 3.53 10^6/ul (4.00-5.40); Red Cell Distribution Width 16 % (10.5-15); White Blood Count 7.9 10^3/ul (3.5-10.8)
[2018-07-23 07:03] LABS: EGFR Non-African American 56.7 (>60)
[2018-07-23] MEDS ORDERED: Magnesium Sulfate IV* 3 GM in NS 0.9% 100 ML* 100 ML IVPB ONE (08:00)
[2018-07-23] MEDS: KCL 10 MEQ/50 ML IVPREMIX* 10 MEQ/50 ML BAG IV SCH ×2 (08:46→13:29)
[2018-07-23] MEDS: busPIRone TAB* 5 MG PO SCH ×2 (08:47→20:35)
[2018-07-23] MEDS: Methadone TAB* 10 MG PO SCH ×3 (08:47→20:34)
[2018-07-23] MEDS: BuPROPion XL* 150 MG TAB.XL PO SCH (08:49)
[2018-07-23] MEDS: Magnesium Oxide TAB* 400 MG PO SCH (08:49)
[2018-07-23] MEDS: FLUoxetine CAP* 20 MG PO SCH (08:50)
[2018-07-23] MEDS: HYDROmorphone TAB* 2 MG PO PRN (11:23)
[2018-07-23] MEDS ORDERED: Magnesium Oxide TAB* 400 MG PO ONE (12:41)
[2018-07-23] MEDS: Potassium Chlor TAB* 20 MEQ TAB.ER PO SCH ×2 (13:37→20:35)
--- NOTE | 2018-07-23 14:36 | PN ---
Subjective Date of Service: 07/23/18 Interval History: HOSPITALIST PROGRESS NOTE Patient seen and examined at bedside. Care reviewed and d/w Ro Nolan RN. She c/o low back pain and dysuria. States she was admitted in [place] in June with similar complaints and was told she had "kidney problems and needed to see a kidney doctor". Family History: Unchanged from Admission Social History: Unchanged from Admission Past Medical History: Unchanged from Admission Objective Active Medications: Bupropion HCl (Wellbutrin Xl *) 150 mg PO DAILY [facility]; Protocol Last Admin: 07/23/18 08:49 Dose: 150 mg Buspirone HCl (Buspar Tab*) 7.5 mg PO BID [facility] Last Admin: 07/23/18 08:47 Dose: 7.5 mg Carisoprodol (Soma Tab*) 350 mg PO TID PRN PRN Reason: SPASMS - BACK Enoxaparin Sodium (Lovenox(*)) 40 mg SUBCUT Q24H [facility] Last Admin: 07/22/18 20:12 Dose: 40 mg Fluoxetine HCl (Prozac Cap*) 40 mg PO DAILY [facility] Last Admin: 07/23/18 08:50 Dose: 40 mg Hydromorphone HCl (Dilaudid Tab*) 2 mg PO Q4H PRN PRN Reason: PAIN Last Admin: 07/23/18 11:23 Dose: 2 mg Hydromorphone HCl (Dilaudid Inj1s*) 0.5 mg IV SLOW PU Q8H PRN PRN Reason: PAIN - UNCONTROLLED Last Admin: 07/22/18 22:15 Dose: 0.5 mg Magnesium Oxide (Magox 400 Tab*) 800 mg PO DAILY [facility] Last Admin: 07/23/18 08:49 Dose: 800 mg Methadone HCl (Dolophine Tab*) 30 mg PO TID [facility] Last Admin: 07/23/18 13:36 Dose: 30 mg Omeprazole (Prilosec Cap*) 20 mg PO BID@0730,1630 [facility] Last Admin: 07/23/18 06:32 Dose: 20 mg Potassium Chloride (Klor Con Er Tab*) 20 meq PO BID [facility] Last Admin: 07/23/18 13:37 Dose: 20 meq Promethazine HCl (Phenergan Tab*) 25 mg PO Q6H PRN PRN Reason: NAUSEA Last Admin: 07/21/18 14:49 Dose: 25 mg Zolpidem Tartrate (Ambien Tab*) 10 mg PO BEDTIME PRN PRN Reason: INSOMNIA Vital Signs - 8 hr 07/23/18 07/23/18 07/23/18 07:29 07:59 08:22 Temperature 98.3 F Pulse Rate 76 73 Respiratory 16 16 Rate Blood Pressure 103/63 122/65 (mmHg) O2 Sat by Pulse 100 100 Oximetry 07/23/18 07/23/18 07/23/18 08:47 11:00 11:07 Temperature 98.2 F Pulse Rate 84 Respiratory 16 16 Rate Blood Pressure 109/54 (mmHg) O2 Sat by Pulse 99 Oximetry 07/23/18 07/23/18 07/23/18 11:15 11:23 13:36 Temperature Pulse Rate Respiratory 20 16 16 Rate Blood Pressure (mmHg) O2 Sat by Pulse Oximetry 07/23/18 13:38 Temperature Pulse Rate Respiratory 16 Rate Blood Pressure (mmHg) O2 Sat by Pulse Oximetry Oxygen Devices in Use Now: None Appearance: Young lady, appears older than stated age, lying in bed in NAD. Eyes: No Scleral Icterus Ears/Nose/Mouth/Throat: Mucous Membranes Moist Neck: Trachea Midline Respiratory: Symmetrical Chest Expansion and Respiratory Effort, Clear to Auscultation Cardiovascular: RRR - Normal S1 and S2 Abdominal: - - Soft, +ostomy, +BS, NT Neurological: Alert and Oriented x 3, NL Muscle Strength and Tone Result Diagrams: 07/23/18 06:14 07/23/18 06:14 Assess/Plan/Problems-Billing Assessment: 47 year old female with PMH Crohn's Disease with colectomy and ileostomy and chronic low back pain on methadone, hx DVT and PE admitted for dysuria, flank pain, N/V and hyponatremia who is improving slightly and being weaned off of IV pain medications. - Patient Problems (1) Flank pain Comment: - Pt reports ongoing severe CVA tenderness/lower back pain and dysuria - UA with 2+ leuk esterase +1 WBC. Culture results not indicative of UTI, discontinued antibiotics. - Afebrile, leukocytosis has resolved. Lactic acid normal - Blood cultures negative. - Abd CT without hydronephrosis. U/S also without hydronephrosis. - Pt still endorsing severe lower back/flank pain. Appreciate pain management consult - Morris SPEARS discussed case with Urology who reviewed images and stated that they would not explain her symptoms and ultrasound findings did not represent kidney stones. - Suspect her back pain is secondary to Chron's related sacroileitis - CRP is normal, will check ESR. (2) Abdominal pain Comment: - Appreciate GI consult - underwent upper endoscopy with Dr. Zacarias in which noted narrowing and possible ulcers were seen in the illeum. Biopsies with consistent with probable Crohn's disease, treated with steroids at that time. - Continue pain management. (3) Acute kidney failure Comment: - At baseline, likely due to dehydration. - Awaiting records from admission in [place]. (4) Crohn disease Comment: - s/p colectomy and ileostomy - Follow up outpatient with gastroenterology as previosuly instructed to institute presales consultant therapy. (5) Hyponatremia Comment: - Resolved. (6) DVT prophylaxis Comment: - Lovenox. (7) Full code status Status and Disposition: Inpatient
--- NOTE | 2018-07-23 17:21 | PN ---
Progress Note - Progress Note Date of Service: 07/23/18 Note: INPATIENT PAIN-PROGRESS She still notes complaints of dysuria. I observed her ambulating and she did very well. Back on Soma and Wellbutrin and Buspar. Current Medications Bupropion HCl (Wellbutrin Xl *) 150 mg PO DAILY [facility]; Protocol Last Admin: 07/23/18 08:49 Dose: 150 mg Buspirone HCl (Buspar Tab*) 7.5 mg PO BID [facility] Last Admin: 07/23/18 08:47 Dose: 7.5 mg Carisoprodol (Soma Tab*) 350 mg PO TID PRN PRN Reason: SPASMS - BACK Enoxaparin Sodium (Lovenox(*)) 40 mg SUBCUT Q24H [facility] Last Admin: 07/22/18 20:12 Dose: 40 mg Fluoxetine HCl (Prozac Cap*) 40 mg PO DAILY [facility] Last Admin: 07/23/18 08:50 Dose: 40 mg Hydromorphone HCl (Dilaudid Tab*) 2 mg PO Q4H PRN PRN Reason: PAIN Last Admin: 07/23/18 11:23 Dose: 2 mg Magnesium Oxide (Magox 400 Tab*) 800 mg PO DAILY [facility] Last Admin: 07/23/18 08:49 Dose: 800 mg Methadone HCl (Dolophine Tab*) 30 mg PO TID [facility] Last Admin: 07/23/18 13:36 Dose: 30 mg Omeprazole (Prilosec Cap*) 20 mg PO BID@0730,1630 [facility] Last Admin: 07/23/18 16:20 Dose: 20 mg Potassium Chloride (Klor Con Er Tab*) 20 meq PO BID [facility] Last Admin: 07/23/18 13:37 Dose: 20 meq Promethazine HCl (Phenergan Tab*) 25 mg PO Q6H PRN PRN Reason: NAUSEA Last Admin: 07/21/18 14:49 Dose: 25 mg Zolpidem Tartrate (Ambien Tab*) 10 mg PO BEDTIME PRN PRN Reason: INSOMNIA Vital Signs Temp Pulse Resp BP Pulse Ox 98.8 F 84 16 111/62 99 07/23/18 15:19 07/23/18 15:19 07/23/18 16:20 07/23/18 15:19 07/23/18 15:19 EXAM: No scoliosis. Diffuse tenderness in back. CVA tenderness. Ambulated without assistance independently ASSESSMENT: 1. Crohn's Disease 2. Low Back Pain with dysuria PLAN: Can go home with Methadone-she gets this from her primary care provider- as well as Dilaudid tabs, 2 mg, 1 tab Q4PRN, MDD=4, dispense #28.
[2018-07-23] MEDS: Enoxaparin(*) 40 MG/0.4 ML SYR SUBCUT SCH (20:33)
[2018-07-23] MEDS: Carisoprodol TAB* 350 MG PO PRN (20:46)
[2018-07-24] MEDS: Zolpidem TAB* 10 MG PO PRN (00:34)
[2018-07-24] MEDS: HYDROmorphone TAB* 2 MG PO PRN ×3 (00:46→20:24)
[2018-07-24 08:06] LABS: ABS Basophils 0.1 10^3/ul (0-0.2); ABS Eosinophils 0.3 10^3/ul (0-0.6); ABS Lymphocytes 0.8 10^3/ul (1.0-4.8); ABS Monocytes 0.8 10^3/ul (0-0.8); ABS Neutrophils 6.3 10^3/ul (1.5-7.7); ABS Nucleated RBC 0 10^3/ul; Eosinophil % 4.1 % (0-6); Hematocrit 26 % (35-47); Hemoglobin 8.6 g/dl (12.0-16.0); Lymphocyte % 9.5 % (25-47); Mean Corpuscular HGB Conc 34 g/dl (31-36); Mean Corpuscular Hemoglobin 29 pg (27-31); Mean Corpuscular Volume 85 fL (80-97); Mean Platelet Volume 8.4 fL (7.4-10.4); Nucleated Red Blood Cells % 0; Platelet Count 211 10^3/ul (150-450); Red Blood Count 3.02 10^6/ul (4.00-5.40); Red Cell Distribution Width 15 % (10.5-15); White Blood Count 8.4 10^3/ul (3.5-10.8)
[2018-07-24] MEDS: busPIRone TAB* 5 MG PO SCH ×2 (08:14→20:25)
[2018-07-24] MEDS: Omeprazole CAP* 20 MG PO SCH ×2 (08:14→17:48)
[2018-07-24] MEDS: Potassium Chlor TAB* 20 MEQ TAB.ER PO SCH ×2 (08:15→20:27)
[2018-07-24] MEDS: Methadone TAB* 10 MG PO SCH ×3 (08:16→20:24)
[2018-07-24] MEDS: FLUoxetine CAP* 20 MG PO SCH (08:16)
[2018-07-24] MEDS: Magnesium Oxide TAB* 400 MG PO SCH (08:17)
[2018-07-24] MEDS: BuPROPion XL* 150 MG TAB.XL PO SCH (08:17)
[2018-07-24 08:48] LABS: EGFR Non-African American 66.9 (>60)
[2018-07-24] MEDS ORDERED: Magnesium Sulf 4 GM/100 ML IV* 4,000 MG/100 ML BAG IVPB ONE (09:10)
[2018-07-24] MEDS: Carisoprodol TAB* 350 MG PO PRN ×2 (12:37→20:26)
[2018-07-24] MEDS ORDERED: Magnesium Oxide TAB* 400 MG PO ONE (13:11)
[2018-07-24] MEDS ORDERED: Magnesium Sulfate IV* 3 GM in NS 0.9% 100 ML* 100 ML IVPB ONE (14:33)
[2018-07-24] MEDS ORDERED: NS 0.9% 100 ML* 100 ML ONE (14:42)
--- NOTE | 2018-07-24 15:10 | PN ---
Subjective Date of Service: 07/24/18 Interval History: HOSPITALIST PROGRESS NOTE Patient seen and examined at bedside. Care reviewed and d/w Nitza Oglesby RN. She feels well today. Abdominal and back pain are unchanged, ostomy functioning well, appetite is good, tolerating diet well. Family History: Unchanged from Admission Social History: Unchanged from Admission Past Medical History: Unchanged from Admission Objective Active Medications: Bupropion HCl (Wellbutrin Xl *) 150 mg PO DAILY [facility]; Protocol Last Admin: 07/24/18 08:17 Dose: 150 mg Buspirone HCl (Buspar Tab*) 7.5 mg PO BID [facility] Last Admin: 07/24/18 08:14 Dose: 7.5 mg Carisoprodol (Soma Tab*) 350 mg PO TID PRN PRN Reason: SPASMS - BACK Last Admin: 07/24/18 12:37 Dose: 350 mg Enoxaparin Sodium (Lovenox(*)) 40 mg SUBCUT Q24H [facility] Last Admin: 07/23/18 20:33 Dose: 40 mg Fluoxetine HCl (Prozac Cap*) 40 mg PO DAILY [facility] Last Admin: 07/24/18 08:16 Dose: 40 mg Hydromorphone HCl (Dilaudid Tab*) 2 mg PO Q4H PRN PRN Reason: PAIN Last Admin: 07/24/18 10:10 Dose: 2 mg Magnesium Sulfate 3 gm/ Sodium (Chloride) 106 mls @ 53 mls/hr IVPB ONCE ONE Stop: 07/24/18 16:32 Methadone HCl (Dolophine Tab*) 30 mg PO TID [facility] Last Admin: 07/24/18 14:05 Dose: 30 mg Omeprazole (Prilosec Cap*) 20 mg PO BID@0730,1630 [facility] Last Admin: 07/24/18 08:14 Dose: 20 mg Potassium Chloride (Klor Con Er Tab*) 20 meq PO BID [facility] Last Admin: 07/24/18 08:15 Dose: 20 meq Promethazine HCl (Phenergan Tab*) 25 mg PO Q6H PRN PRN Reason: NAUSEA Last Admin: 07/21/18 14:49 Dose: 25 mg Zolpidem Tartrate (Ambien Tab*) 10 mg PO BEDTIME PRN PRN Reason: INSOMNIA Last Admin: 07/24/18 00:34 Dose: 10 mg Vital Signs - 8 hr 07/24/18 07/24/18 07/24/18 08:00 08:16 10:10 Temperature Pulse Rate Respiratory 14 14 16 Rate Blood Pressure (mmHg) O2 Sat by Pulse Oximetry 07/24/18 07/24/18 07/24/18 11:30 12:00 12:37 Temperature 97.9 F Pulse Rate 76 Respiratory 16 15 17 Rate Blood Pressure 104/54 (mmHg) O2 Sat by Pulse 99 Oximetry 07/24/18 14:05 Temperature Pulse Rate Respiratory 16 Rate Blood Pressure (mmHg) O2 Sat by Pulse Oximetry Oxygen Devices in Use Now: None Appearance: Pleasant lady sitting up in bed in NAD. Eyes: No Scleral Icterus Ears/Nose/Mouth/Throat: Mucous Membranes Moist Neck: Trachea Midline Respiratory: Symmetrical Chest Expansion and Respiratory Effort, Clear to Auscultation Cardiovascular: RRR - Normal S1 and S2 Abdominal: - - Soft, BS+, working ostomy Neurological: Alert and Oriented x 3, NL Muscle Strength and Tone Result Diagrams: 07/24/18 07:46 07/24/18 07:45 Assess/Plan/Problems-Billing Assessment: 47 year old female with PMH Crohn's Disease with colectomy and ileostomy and chronic low back pain on methadone, hx DVT and PE admitted for dysuria, flank pain, N/V and hyponatremia who is improving slightly and being weaned off of IV pain medications. - Patient Problems (1) Flank pain Comment: - Improved. - UA with 2+ leuk esterase +1 WBC. Culture results not indicative of UTI, discontinued antibiotics. - Afebrile, leukocytosis has resolved. Lactic acid normal - Blood cultures negative. - Abd CT without hydronephrosis. U/S also without hydronephrosis. - Morris SPEARS discussed case with Urology who reviewed images and stated that they would not explain her symptoms and ultrasound findings did not represent kidney stones. - Suspect her back pain is secondary to Chron's related sacroileitis - CRP is normal, ESR is elevated, but better than before. May benefit of Rheumatology evaluation as outpatient. 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 - Continue pain management. (3) Acute kidney failure Comment: - At baseline, likely due to dehydration. - Records from admission in [place] reviewed - she had CHASTITY and severe hyponatremia (118) secondary to dehydration. Seen by Lead Software Architect who did not recommend any further w/u. - Her CHASTITY this admission was also secondary to dehydration and is now resolved. (4) Crohn disease Comment: - s/p colectomy and ileostomy. - ESR is improved from before and CRP is normal. - Follow up outpatient with gastroenterology as previosuly instructed to institute care home therapy. (5) Hypomagnesemia Comment: - Despite repletion, magnesium is only 1.1. - Will replete PO/IV. - Known malabsorption secondary to Chron's. (6) Hyponatremia Comment: - Secondary to dehydration. - Resolved. (7) DVT prophylaxis Comment: - Lovenox. (8) Full code status Status and Disposition: Inpatient. Anticipate d/c in AM if magnesium improved.
[2018-07-24] MEDS: Enoxaparin(*) 40 MG/0.4 ML SYR SUBCUT SCH (20:23)
[2018-07-25] MEDS: Zolpidem TAB* 10 MG PO PRN ×2 (01:39→23:40)
[2018-07-25] MEDS: HYDROmorphone TAB* 2 MG PO PRN ×4 (01:43→21:37)
[2018-07-25] MEDS: Omeprazole CAP* 20 MG PO SCH ×2 (06:48→16:11)
[2018-07-25] MEDS: busPIRone TAB* 5 MG PO SCH ×2 (08:47→19:22)
[2018-07-25] MEDS: Methadone TAB* 10 MG PO SCH ×3 (08:47→19:21)
[2018-07-25] MEDS: FLUoxetine CAP* 20 MG PO SCH (08:49)
[2018-07-25] MEDS: BuPROPion XL* 150 MG TAB.XL PO SCH (08:49)
[2018-07-25] MEDS: Potassium Chlor TAB* 20 MEQ TAB.ER PO SCH ×2 (08:50→19:22)
[2018-07-25] MEDS ORDERED: Magnesium Oxide TAB* 400 MG PO SCH (09:00)
[2018-07-25] MEDS ORDERED: Magnesium Sulfate 2 GM IV* 2 GM/50 ML BAG IVPB ONE (15:38)
--- NOTE | 2018-07-25 15:50 | PN ---
Subjective Date of Service: 07/25/18 Interval History: Reports ongoing pain in back.Reports feeling tired today Family History: Unchanged from Admission Social History: Unchanged from Admission Past Medical History: Unchanged from Admission Objective Active Medications: Bupropion HCl (Wellbutrin Xl *) 150 mg PO DAILY [facility]; Protocol Last Admin: 07/25/18 08:49 Dose: 150 mg Buspirone HCl (Buspar Tab*) 7.5 mg PO BID [facility] Last Admin: 07/25/18 08:47 Dose: 7.5 mg Carisoprodol (Soma Tab*) 350 mg PO TID PRN PRN Reason: SPASMS - BACK Last Admin: 07/24/18 20:26 Dose: 350 mg Enoxaparin Sodium (Lovenox(*)) 40 mg SUBCUT Q24H [facility] Last Admin: 07/24/18 20:23 Dose: 40 mg Fluoxetine HCl (Prozac Cap*) 40 mg PO DAILY [facility] Last Admin: 07/25/18 08:49 Dose: 40 mg Hydromorphone HCl (Dilaudid Tab*) 2 mg PO Q4H PRN PRN Reason: PAIN Last Admin: 07/25/18 13:00 Dose: 2 mg Magnesium Sulfate (Magnesium Sulfate 2 Gm Iv*) 2 gm in 50 mls @ 50 mls/hr IVPB ONCE ONE Stop: 07/25/18 16:37 Methadone HCl (Dolophine Tab*) 30 mg PO TID [facility] Last Admin: 07/25/18 14:14 Dose: 30 mg Omeprazole (Prilosec Cap*) 20 mg PO BID@0730,1630 [facility] Last Admin: 07/25/18 06:48 Dose: 20 mg Potassium Chloride (Klor Con Er Tab*) 20 meq PO BID [facility] Last Admin: 07/25/18 08:50 Dose: 20 meq Promethazine HCl (Phenergan Tab*) 25 mg PO Q6H PRN PRN Reason: NAUSEA Last Admin: 07/21/18 14:49 Dose: 25 mg Zolpidem Tartrate (Ambien Tab*) 10 mg PO BEDTIME PRN PRN Reason: INSOMNIA Last Admin: 07/25/18 01:39 Dose: 10 mg Vital Signs - 8 hr 07/25/18 07/25/18 07/25/18 08:00 08:45 08:47 Temperature Pulse Rate Respiratory 16 16 16 Rate Blood Pressure (mmHg) O2 Sat by Pulse Oximetry 07/25/18 07/25/18 07/25/18 11:00 11:56 13:00 Temperature 99.0 F Pulse Rate 84 Respiratory 16 16 16 Rate Blood Pressure 100/63 (mmHg) O2 Sat by Pulse 100 Oximetry 07/25/18 14:14 Temperature Pulse Rate Respiratory 16 Rate Blood Pressure (mmHg) O2 Sat by Pulse Oximetry Oxygen Devices in Use Now: None Eyes: No Scleral Icterus Ears/Nose/Mouth/Throat: NL Teeth, Lips, Gums Respiratory: Symmetrical Chest Expansion and Respiratory Effort, Clear to Auscultation Cardiovascular: NL Sounds; No Murmurs; No JVD Abdominal: NL Sounds; No Tenderness; No Distention - Tenderness on palpation of sacroilliac joint area and pelvic bone area, - Extremities: No Edema Skin: No Rash or Ulcers Neurological: Alert and Oriented x 3 Result Diagrams: 07/24/18 07:46 07/24/18 07:45 Microbiology and Other Data: Microbiology 07/20/18 11:48 Aerobic Blood Culture - Preliminary Blood Venous No Growth Day 1 Anaerobic Blood Culture - Preliminary No Growth Day 1 07/19/18 16:23 Urine Culture - Final Urine Strep Group B Assess/Plan/Problems-Billing Assessment: 47 year old female with PMH Crohn's Disease with colectomy and ileostomy and chronic low back pain on methadone, hx DVT and PE admitted for dysuria, flank pain, N/V and hyponatremia who is improving slightly and being weaned off of IV pain medications. - Patient Problems (1) Abdominal pain Current Visit: Yes Status: Acute Priority: High Code(s): R10.9 - UNSPECIFIED ABDOMINAL PAIN SNOMED Code(s): 69546170 Comment: - Crohn's disease appears to be controlled at this time, but needs GI f/u as outpatient for oil heaterman therapy. - Continue pain management. (2) Acute kidney failure Current Visit: Yes Status: Acute Priority: Medium Comment: - At baseline, likely due to dehydration. - Records from admission in [place] reviewed - she had CHASTITY and severe hyponatremia (118) secondary to dehydration. Seen by Crew Team Member who did not recommend any further w/u. - Her CHASTITY this admission was also secondary to dehydration and is now resolved. (3) Crohn disease Current Visit: Yes Status: Acute Code(s): K50.90 - CROHN'S DISEASE, UNSPECIFIED, WITHOUT COMPLICATIONS SNOMED Code(s): 02665567 Comment: - s/p colectomy and ileostomy. - ESR is improved from before and CRP is normal. - Follow up outpatient with gastroenterology as previosuly instructed to institute correction therapy. (4) DVT prophylaxis Current Visit: Yes Status: Acute Code(s): RED9279 - SNOMED Code(s): 226883508 Comment: - Lovenox. (5) Flank pain Current Visit: Yes Status: Acute Code(s): R10.9 - UNSPECIFIED ABDOMINAL PAIN SNOMED Code(s): 655768060 Comment: - Improved. - UA with 2+ leuk esterase +1 WBC. Culture results not indicative of UTI, discontinued antibiotics. - Afebrile, leukocytosis has resolved. Lactic acid normal - Blood cultures negative. - Abd CT without hydronephrosis. U/S also without hydronephrosis. - Morris SPEARS discussed case with Urology who reviewed images and stated that they would not explain her symptoms and ultrasound findings did not represent kidney stones. - Suspect her back pain is secondary to Chron's related sacroileitis - CRP is normal, ESR is elevated, but better than before. May benefit of Rheumatology evaluation as outpatient. (6) Full code status Current Visit: Yes Status: Acute Code(s): Z78.9 - OTHER SPECIFIED HEALTH STATUS SNOMED Code(s): 335415962 (7) Hypomagnesemia Current Visit: Yes Status: Acute Code(s): E83.42 - HYPOMAGNESEMIA SNOMED Code(s): 686552612 Comment: - Despite repletion, magnesium still low - Will replete with 2 g Mg IV today - Known malabsorption secondary to Chron's. (8) Hyponatremia Current Visit: Yes Status: Acute Code(s): E87.1 - HYPO-OSMOLALITY AND HYPONATREMIA SNOMED Code(s): 68209870 Comment: - Secondary to dehydration. - Resolved. Status and Disposition: Inpatient. Anticipate d/c in AM if magnesium improved.
[2018-07-25] MEDS: Enoxaparin(*) 40 MG/0.4 ML SYR SUBCUT SCH (19:21)
[2018-07-25] MEDS: Carisoprodol TAB* 350 MG PO PRN (21:37)
[2018-07-26 05:52] LABS: EGFR Non-African American 64.4 (>60)
[2018-07-26 07:10] LABS: ABS Basophils 0.1 10^3/ul (0-0.2); ABS Eosinophils 0.2 10^3/ul (0-0.6); ABS Lymphocytes 0.6 10^3/ul (1.0-4.8); ABS Monocytes 0.7 10^3/ul (0-0.8); ABS Neutrophils 7.2 10^3/ul (1.5-7.7); ABS Nucleated RBC 0 10^3/ul; Eosinophil % 2.7 % (0-6); Hematocrit 25 % (35-47); Hemoglobin 8.2 g/dl (12.0-16.0); Lymphocyte % 6.8 % (25-47); Mean Corpuscular HGB Conc 33 g/dl (31-36); Mean Corpuscular Hemoglobin 29 pg (27-31); Mean Corpuscular Volume 86 fL (80-97); Mean Platelet Volume 8.6 fL (7.4-10.4); Nucleated Red Blood Cells % 0.1; Platelet Count 203 10^3/ul (150-450); Red Blood Count 2.89 10^6/ul (4.00-5.40); Red Cell Distribution Width 16 % (10.5-15); White Blood Count 8.8 10^3/ul (3.5-10.8)
[2018-07-26] MEDS: busPIRone TAB* 5 MG PO SCH ×2 (09:13→20:36)
[2018-07-26] MEDS: FLUoxetine CAP* 20 MG PO SCH (09:14)
[2018-07-26] MEDS: Methadone TAB* 10 MG PO SCH ×3 (09:15→20:36)
[2018-07-26] MEDS: BuPROPion XL* 150 MG TAB.XL PO SCH (09:16)
[2018-07-26] MEDS: Omeprazole CAP* 20 MG PO SCH ×2 (09:16→18:09)
[2018-07-26] MEDS: HYDROmorphone TAB* 2 MG PO PRN ×2 (09:20→22:08)
[2018-07-26] MEDS: Carisoprodol TAB* 350 MG PO PRN (11:31)
--- NOTE | 2018-07-26 13:46 | PN ---
Subjective Date of Service: 07/26/18 Interval History: Pt reports that she wants to stay another day and go home tomorrow.Still feels poorly and worried about her Mg and Na.c/o back pain and some nausea Family History: Unchanged from Admission Social History: Unchanged from Admission Past Medical History: Unchanged from Admission Objective Active Medications: Bupropion HCl (Wellbutrin Xl *) 150 mg PO DAILY [facility]; Protocol Last Admin: 07/26/18 09:16 Dose: 150 mg Buspirone HCl (Buspar Tab*) 7.5 mg PO BID [facility] Last Admin: 07/26/18 09:13 Dose: 7.5 mg Carisoprodol (Soma Tab*) 350 mg PO TID PRN PRN Reason: SPASMS - BACK Last Admin: 07/26/18 11:31 Dose: 350 mg Enoxaparin Sodium (Lovenox(*)) 40 mg SUBCUT Q24H [facility] Last Admin: 07/25/18 19:21 Dose: 40 mg Fluoxetine HCl (Prozac Cap*) 40 mg PO DAILY [facility] Last Admin: 07/26/18 09:14 Dose: 40 mg Hydromorphone HCl (Dilaudid Tab*) 2 mg PO Q4H PRN PRN Reason: PAIN Last Admin: 07/26/18 09:20 Dose: 2 mg Methadone HCl (Dolophine Tab*) 30 mg PO TID [facility] Last Admin: 07/26/18 09:15 Dose: 30 mg Omeprazole (Prilosec Cap*) 20 mg PO BID@0730,1630 [facility] Last Admin: 07/26/18 09:16 Dose: 20 mg Promethazine HCl (Phenergan Tab*) 25 mg PO Q6H PRN PRN Reason: NAUSEA Last Admin: 07/21/18 14:49 Dose: 25 mg Zolpidem Tartrate (Ambien Tab*) 10 mg PO BEDTIME PRN PRN Reason: INSOMNIA Last Admin: 07/25/18 23:40 Dose: 10 mg Vital Signs - 8 hr 07/26/18 07/26/18 07/26/18 07:00 09:15 09:20 Temperature Pulse Rate Respiratory 16 18 Rate Blood Pressure 100/60 (mmHg) O2 Sat by Pulse Oximetry 07/26/18 07/26/18 11:31 11:43 Temperature 97.9 F Pulse Rate 63 Respiratory 16 16 Rate Blood Pressure 108/53 (mmHg) O2 Sat by Pulse 100 Oximetry Oxygen Devices in Use Now: None Eyes: No Scleral Icterus Neck: NL Appearance and Movements; NL JVP, Trachea Midline Respiratory: Symmetrical Chest Expansion and Respiratory Effort, Clear to Auscultation Cardiovascular: NL Sounds; No Murmurs; No JVD Abdominal: NL Sounds; No Tenderness; No Distention Extremities: No Edema Skin: No Rash or Ulcers Neurological: Alert and Oriented x 3 Result Diagrams: 07/26/18 06:57 07/26/18 05:23 Microbiology and Other Data: Microbiology 07/20/18 11:48 Aerobic Blood Culture - Preliminary Blood Venous No Growth Day 1 Anaerobic Blood Culture - Preliminary No Growth Day 1 07/19/18 16:23 Urine Culture - Final Urine Strep Group B Assess/Plan/Problems-Billing Assessment: 47 year old female with PMH Crohn's Disease with colectomy and ileostomy and chronic low back pain on methadone, hx DVT and PE admitted for dysuria, flank pain, N/V and hyponatremia who is improving slightly and being weaned off of IV pain medications. - Patient Problems (1) Hyponatremia Current Visit: Yes Status: Acute Code(s): E87.1 - HYPO-OSMOLALITY AND HYPONATREMIA SNOMED Code(s): 86109214 Comment: -h/o hyponatremia -will hold off on full w/u -on some psych medications that can cause hyponatremia -Poss additional component of lovenox/heparin induced hypoaldosteronism as Na was better before.Will hold Lovenox.K also elevated.Pt was also on K supplementation that has been stopped -Will check Cortisol and TSH.Pt has a tendency to hypovolemia and has also been having diarrhea on and off with Crohn's complications.NS @75cc/hr repeat Na tomorrow.Adrenal insufficiency and hypoaldo is possible with pt's overall symptoms and history and presentation and will get Cortisol level. If Na does not improve tomorrow, can consider w/u for SIADH and other etiology (2) Abdominal pain Current Visit: Yes Status: Acute Priority: High Code(s): R10.9 - UNSPECIFIED ABDOMINAL PAIN SNOMED Code(s): 33697411 Comment: - Crohn's disease appears to be controlled at this time, but needs GI f/u as outpatient for bed bug exterminator therapy. - Continue pain management. (3) Acute kidney failure Current Visit: Yes Status: Acute Priority: Medium Comment: - At baseline, likely due to dehydration. - Records from admission in [place] reviewed - she had CHASTITY and severe hyponatremia (118) secondary to dehydration. Seen by Bedspread Cutter Hand there who did not recommend any further w/u. - Her CHASTITY this admission was also secondary to dehydration and is now resolved. (4) Crohn disease Current Visit: Yes Status: Acute Code(s): K50.90 - CROHN'S DISEASE, UNSPECIFIED, WITHOUT COMPLICATIONS SNOMED Code(s): 35113526 Comment: - s/p colectomy and ileostomy. - ESR is improved from before and CRP is normal. - Follow up outpatient with gastroenterology as previosuly instructed to institute shelter therapy. (5) DVT prophylaxis Current Visit: Yes Status: Acute Code(s): FFP7837 - SNOMED Code(s): 636221614 Comment: - Lovenox. (6) Flank pain Current Visit: Yes Status: Acute Code(s): R10.9 - UNSPECIFIED ABDOMINAL PAIN SNOMED Code(s): 962080137 Comment: - Improved. - UA with 2+ leuk esterase +1 WBC. Culture results not indicative of UTI, discontinued antibiotics. - Afebrile, leukocytosis has resolved. Lactic acid normal - Blood cultures negative. - Abd CT without hydronephrosis. U/S also without hydronephrosis. - Morris SPEARS discussed case with Urology who reviewed images and stated that they would not explain her symptoms and ultrasound findings did not represent kidney stones. - Suspect her back pain is secondary to Chron's related sacroileitis - CRP is normal, ESR is elevated, but better than before. May benefit of Rheumatology evaluation as outpatient. (7) Full code status Current Visit: Yes Status: Acute Code(s): Z78.9 - OTHER SPECIFIED HEALTH STATUS SNOMED Code(s): 757503514 (8) Hypomagnesemia Current Visit: Yes Status: Acute Code(s): E83.42 - HYPOMAGNESEMIA SNOMED Code(s): 405777841 Comment: - Despite repletion, magnesium still low - Will replete with 2 g Mg IV today - Known malabsorption secondary to Crohn's. Status and Disposition: Inpatient. Anticipate d/c in AM if magnesium and Na improved.
[2018-07-26] MEDS: NS 0.9% 1000 ML* 1,000 ML IV SCH (14:09)
[2018-07-26] MEDS ORDERED: Magnesium Oxide TAB* 400 MG PO ONE (22:35)
[2018-07-26] MEDS: Zolpidem TAB* 10 MG PO PRN (22:56)
[2018-07-27] MEDS ORDERED: Magnesium Oxide TAB* 400 MG PO ONE (02:30)
[2018-07-27] MEDS: BuPROPion XL* 150 MG TAB.XL PO SCH (09:20)
[2018-07-27] MEDS: busPIRone TAB* 5 MG PO SCH ×2 (09:20→21:15)
[2018-07-27] MEDS: Methadone TAB* 10 MG PO SCH ×3 (09:21→21:14)
[2018-07-27] MEDS: Omeprazole CAP* 20 MG PO SCH ×2 (09:23→16:03)
[2018-07-27] MEDS: HYDROmorphone TAB* 2 MG PO PRN ×3 (09:24→21:16)
[2018-07-27] MEDS: FLUoxetine CAP* 20 MG PO SCH (09:24)
--- NOTE | 2018-07-27 09:59 | PN ---
Subjective Date of Service: 07/27/18 Interval History: patient reports she continues to have low/sacrum back pain. denies flank pain. Reports burning with urination. No incontinence. Denies numbness, tingling. Reports she can ambulate ok. Denies having high output from ileostomy. No fever or chills. Family History: Unchanged from Admission Social History: Unchanged from Admission Past Medical History: Unchanged from Admission Objective Active Medications: Bupropion HCl (Wellbutrin Xl *) 150 mg PO DAILY [facility]; Protocol Last Admin: 07/27/18 09:20 Dose: 150 mg Buspirone HCl (Buspar Tab*) 7.5 mg PO BID [facility] Last Admin: 07/27/18 09:20 Dose: 7.5 mg Carisoprodol (Soma Tab*) 350 mg PO TID PRN PRN Reason: SPASMS - BACK Last Admin: 07/26/18 11:31 Dose: 350 mg Fluoxetine HCl (Prozac Cap*) 40 mg PO DAILY [facility] Last Admin: 07/27/18 09:24 Dose: 40 mg Hydromorphone HCl (Dilaudid Tab*) 2 mg PO Q4H PRN PRN Reason: PAIN Last Admin: 07/27/18 09:24 Dose: 2 mg Sodium Chloride (Ns 0.9% 1000 Ml*) 1,000 mls @ 100 mls/hr IV PER RATE [facility] Last Admin: 07/26/18 14:09 Dose: 100 mls/hr Methadone HCl (Dolophine Tab*) 30 mg PO TID [facility] Last Admin: 07/27/18 09:21 Dose: 30 mg Omeprazole (Prilosec Cap*) 20 mg PO BID@0730,1630 [facility] Last Admin: 07/27/18 09:23 Dose: 20 mg Promethazine HCl (Phenergan Tab*) 25 mg PO Q6H PRN PRN Reason: NAUSEA Last Admin: 07/21/18 14:49 Dose: 25 mg Zolpidem Tartrate (Ambien Tab*) 10 mg PO BEDTIME PRN PRN Reason: INSOMNIA Last Admin: 07/26/18 22:56 Dose: 10 mg Vital Signs - 8 hr 07/27/18 07/27/18 07/27/18 02:42 03:26 08:03 Temperature 97.9 F 98.2 F Pulse Rate 88 81 Respiratory 16 16 20 Rate Blood Pressure 97/48 98/63 (mmHg) O2 Sat by Pulse 100 97 Oximetry 07/27/18 07/27/18 09:21 09:24 Temperature Pulse Rate Respiratory 14 16 Rate Blood Pressure (mmHg) O2 Sat by Pulse Oximetry Oxygen Devices in Use Now: None Appearance: 47 yo female sitting up in bed A+O x3 in NAD Eyes: PERRLA Ears/Nose/Mouth/Throat: Mucous Membranes Moist Neck: NL Appearance and Movements; NL JVP Respiratory: Symmetrical Chest Expansion and Respiratory Effort, Clear to Auscultation Cardiovascular: NL Sounds; No Murmurs; No JVD, RRR, No Edema Abdominal: NL Sounds; No Tenderness; No Distention Extremities: No Edema, No Clubbing, Cyanosis, - - left scaroiliac joint tender tp palpation Skin: No Rash or Ulcers, No Nodules or Sclerosis Neurological: Alert and Oriented x 3, NL Sensation, NL Gait, NL Muscle Strength and Tone Nutrition: Taking PO's Result Diagrams: 07/26/18 06:57 07/27/18 10:40 Microbiology and Other Data: Microbiology 07/20/18 11:48 Aerobic Blood Culture - Preliminary Blood Venous No Growth Day 1 Anaerobic Blood Culture - Preliminary No Growth Day 1 07/19/18 16:23 Urine Culture - Final Urine Strep Group B Assess/Plan/Problems-Billing Assessment: 47 year old female with PMH Crohn's Disease with colectomy and ileostomy and chronic low back pain on methadone, hx DVT and PE admitted for dysuria, flank pain, N/V and hyponatremia who is improving slightly and being weaned off of IV pain medications. - Patient Problems (1) Flank pain Comment: - Improved. - UA with 2+ leuk esterase +1 WBC. Culture results not indicative of UTI, discontinued antibiotics. - Afebrile, leukocytosis has resolved. Lactic acid normal - Blood cultures negative. - Abd CT without hydronephrosis. U/S also without hydronephrosis. - Morris SPEARS discussed case with Urology who reviewed images and stated that they would not explain her symptoms and ultrasound findings did not represent kidney stones. - Suspect her back pain is secondary to sacroilitis secondary to IBD (noted on CT scan)- CRP is normal, ESR is elevated, but better than before. May benefit of Rheumatology evaluation as outpatient. (2) Crohn disease Comment: - s/p colectomy and ileostomy. - ESR is improved from before and CRP is normal. 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 (3) Acute kidney failure Comment: - At baseline, likely due to dehydration. - Records from admission in [place] reviewed - she had CHASTITY and severe hyponatremia (118) secondary to dehydration. Seen by Student Accounts Coordinator there who did not recommend any further w/u. - Her CHASTITY this admission was also secondary to dehydration and is now resolved. (4) Hypomagnesemia Comment: - Despite repletion, magnesium still low - Will replete with 3 g Mg IV today - Known malabsorption secondary to Crohn's. (5) DVT prophylaxis Comment: - (6) Full code status Status and Disposition: Inpatient. Anticipate d/c in AM if magnesium and Na improved.
[2018-07-27] MEDS ORDERED: Magnesium Sulfate IV* 3 GM in NS 0.9% 100 ML* 100 ML IVPB ONE (11:30)
[2018-07-27] MEDS ORDERED: HYDROmorphone TAB* 2 MG PO PRN (11:30)
[2018-07-27] MEDS: Carisoprodol TAB* 350 MG PO PRN (16:04)
[2018-07-27] MEDS: NS 0.9% 1000 ML* 1,000 ML IV SCH (16:58)
[2018-07-28] MEDS: Zolpidem TAB* 10 MG PO PRN (00:51)
[2018-07-28] MEDS: NS 0.9% 1000 ML* 1,000 ML IV SCH ×2 (02:48→15:45)
[2018-07-28 06:57] LABS: ABS Basophils 0 10^3/ul (0-0.2); ABS Eosinophils 0.2 10^3/ul (0-0.6); ABS Lymphocytes 0.6 10^3/ul (1.0-4.8); ABS Monocytes 0.8 10^3/ul (0-0.8); ABS Neutrophils 4.6 10^3/ul (1.5-7.7); ABS Nucleated RBC 0 10^3/ul; Hematocrit 21 % (35-47); Hemoglobin 6.8 g/dl (12.0-16.0); Lymphocyte % 10.2 % (25-47); Mean Corpuscular HGB Conc 33 g/dl (31-36); Mean Corpuscular Hemoglobin 28 pg (27-31); Mean Corpuscular Volume 85 fL (80-97); Mean Platelet Volume 8.4 fL (7.4-10.4); Nucleated Red Blood Cells % 0; Platelet Count 227 10^3/ul (150-450); Red Blood Count 2.44 10^6/ul (4.00-5.40); Red Cell Distribution Width 16 % (10.5-15); White Blood Count 6.2 10^3/ul (3.5-10.8)
[2018-07-28 07:16] LABS: EGFR Non-African American 68.6 (>60)
[2018-07-28] MEDS ORDERED: Magnesium Sulfate IV* 3 GM in NS 0.9% 100 ML* 100 ML IVPB ONE (07:36)
[2018-07-28] MEDS: BuPROPion XL* 150 MG TAB.XL PO SCH (08:28)
[2018-07-28] MEDS: Methadone TAB* 10 MG PO SCH ×2 (08:28→20:56)
[2018-07-28] MEDS: busPIRone TAB* 5 MG PO SCH ×2 (08:28→20:55)
[2018-07-28] MEDS: FLUoxetine CAP* 20 MG PO SCH (08:28)
[2018-07-28] MEDS: Omeprazole CAP* 20 MG PO SCH ×2 (08:28→15:41)
[2018-07-28] MEDS: HYDROmorphone TAB* 2 MG PO PRN ×2 (09:38→15:42)
[2018-07-28 09:54] LABS: Hematocrit 23 % (35-47); Hemoglobin 7.5 g/dl (12.0-16.0)
--- NOTE | 2018-07-28 15:03 | PN ---
Subjective Date of Service: 07/28/18 Interval History: patient reports she still feels unwell with low sacral pain but denies any worsening pain. today she reports she feels weak. She continues to have sacrum pain and a burning feeling when she urinates no blood noted in urine. She is noted to be anemic today -Denies any noted blood from colostomy or urine. she reports she has received blood transfusions in the past but none recently. She reports her appetite is improving. Denies any fever or chills. Family History: Unchanged from Admission Social History: Unchanged from Admission Past Medical History: Unchanged from Admission Objective Active Medications: Bupropion HCl (Wellbutrin Xl *) [address] [facility]; Protocol Last Admin: 07/28/18 08:28 Dose: 150 mg Buspirone HCl (Buspar Tab*) 7.[address] [facility] Last Admin: 07/28/18 08:28 Dose: 7.5 mg Carisoprodol (Soma Tab*) 350 mg PO TID PRN PRN Reason: SPASMS - BACK Last Admin: 07/27/18 16:04 Dose: 350 mg Fluoxetine HCl (Prozac Cap*) [address] [facility] Last Admin: 07/28/18 08:28 Dose: 40 mg Hydromorphone HCl (Dilaudid Tab*) 2 mg PO Q4H PRN PRN Reason: PAIN Last Admin: 07/28/18 09:38 Dose: 2 mg Sodium Chloride (Ns 0.9% 1000 Ml*) 1,000 mls @ 100 mls/hr IV PER RATE [facility] Last Admin: 07/28/18 02:48 Dose: 100 mls/hr Magnesium Oxide (Magox 400 Tab*) [address] [facility] Omeprazole (Prilosec Cap*) 20 mg PO BID@0730,1630 [facility] Last Admin: 07/28/18 08:28 Dose: 20 mg Promethazine HCl (Phenergan Tab*) 25 mg PO Q6H PRN PRN Reason: NAUSEA Last Admin: 07/21/18 14:49 Dose: 25 mg Zolpidem Tartrate (Ambien Tab*) 10 mg PO BEDTIME PRN PRN Reason: INSOMNIA Last Admin: 07/28/18 00:51 Dose: 10 mg Vital Signs - 8 hr 07/28/18 07/28/18 07/28/18 07:41 08:00 08:28 Temperature 98.3 F Pulse Rate 82 Respiratory 16 16 14 Rate Blood Pressure 103/58 (mmHg) O2 Sat by Pulse 94 Oximetry 07/28/18 07/28/18 07/28/18 09:38 10:40 14:49 Temperature Pulse Rate Respiratory 16 14 14 Rate Blood Pressure (mmHg) O2 Sat by Pulse Oximetry Oxygen Devices in Use Now: None Appearance: 47 yo female sitting up in bed eating in nAD A+O x4 Eyes: No Scleral Icterus, PERRLA Neck: NL Appearance and Movements; NL JVP Respiratory: Symmetrical Chest Expansion and Respiratory Effort, Clear to Auscultation Cardiovascular: NL Sounds; No Murmurs; No JVD, RRR, No Edema Abdominal: NL Sounds; No Tenderness; No Distention Extremities: No Edema, No Clubbing, Cyanosis Skin: No Rash or Ulcers, No Nodules or Sclerosis, - - slightly pale skin Neurological: Alert and Oriented x 3, NL Muscle Strength and Tone Lines/Tubes/Other Access: Clean, Dry and Intact PICC Line - mid line Nutrition: Taking PO's Result Diagrams: 07/28/18 09:45 07/28/18 06:35 Microbiology and Other Data: Microbiology 07/20/18 11:48 Aerobic Blood Culture - Preliminary Blood Venous No Growth Day 1 Anaerobic Blood Culture - Preliminary No Growth Day 1 07/19/18 16:23 Urine Culture - Final Urine Strep Group B Assess/Plan/Problems-Billing Assessment: 47 year old female with PMH Crohn's Disease with colectomy and ileostomy and chronic low back pain on methadone, hx DVT and PE admitted for dysuria, flank pain, N/V and hyponatremia who is improving - Patient Problems (1) Flank pain Comment: - Resolved - UA with 2+ leukocyte esterase +1 WBC. Culture results not indicative of UTI - repeat u/a due to report of dysuria - Afebrile, leukocytosis has resolved. Lactic acid normal - Blood cultures negative. - Abd CT without hydronephrosis. U/S also without hydronephrosis. - Morris SPEARS discussed case with Urology who reviewed images and stated that they would not explain her symptoms and ultrasound findings did not represent kidney stones. - Suspect her back pain is secondary to sacroilitis secondary to Crohns (noted on CT scan)- CRP is normal, ESR is elevated. Will add on ANGIE. May benefit of Rheumatology evaluation as outpatient. (2) Anemia Comment: - HH 6.8/21 down from 8.2/ - was receiving IVFs could be partially dilutional. Pt feels symptomatic with wekaness and appears pale on exam. No obvious signs of bleeding. Will send stool for occult blood. Send iron studies. Plan to give 2 units PRBCs. Continue to monitor HH. If stool is heme positive will consult GI. VSS. (3) Crohn disease Comment: - s/p colectomy and ileostomy. - ESR is improved from before and CRP is normal. - Follow up outpatient with gastroenterology as previosuly instructed to institute intermediate manager therapy. (4) Acute kidney failure Comment: - At baseline, likely due to dehydration. - Records from admission in [place] reviewed - she had CHASTITY and severe hyponatremia (118) secondary to dehydration. Seen by Supervisor Pumping Station there who did not recommend any further w/u. - Her CHASTITY this admission was also secondary to dehydration and is now resolved. (5) Hypomagnesemia Comment: - Despite repletion, magnesium still low - Will replete with 3 g Mg IV today - Known malabsorption secondary to Crohn's. - start po magnesium daily (6) DVT prophylaxis Comment: - hold in the setting of anemia (7) Full code status Status and Disposition: Inpatient. Home when medically stable. depending on stool guiac and HH if stable she could be DC in am.
[2018-07-28] MEDS ORDERED: Methadone TAB* 10 MG PO ONE (15:16)
[2018-07-28 17:12] LABS: Corrected Retic Count 0.7 % (0.5-1.5); Hematocrit for Retic CNT 21 % (35-47); Immature Retic Fraction 0.64; RBC Retic Count 2.38 10^6/ul (4.6-6.2)
[2018-07-28 20:06] LABS: Urine Appearance Clear; Urine Blood Negative (Negative); Urine Color Yellow; Urine Ketones Negative (Negative); Urine Protein Negative (Negative); Urine Red Blood Cell Absent (Absent); Urine Specific Gravity 1.008 (1.010-1.030); Urine Urobilinogen Negative (Negative); Urine White Blood Cell Trace(0-5/hpf) (Absent)
[2018-07-28 21:23] LABS: Hematocrit 28 % (35-47); Hemoglobin 9.5 g/dl (12.0-16.0)
[2018-07-29] MEDS: HYDROmorphone TAB* 2 MG PO PRN ×3 (00:38→22:42)
[2018-07-29] MEDS: Zolpidem TAB* 10 MG PO PRN ×2 (00:38→22:42)
[2018-07-29] MEDS: NS 0.9% 1000 ML* 1,000 ML IV SCH (06:18)
[2018-07-29 06:35] LABS: ABS Basophils 0 10^3/ul (0-0.2); ABS Eosinophils 0.2 10^3/ul (0-0.6); ABS Lymphocytes 0.6 10^3/ul (1.0-4.8); ABS Monocytes 0.8 10^3/ul (0-0.8); ABS Neutrophils 6.9 10^3/ul (1.5-7.7); ABS Nucleated RBC 0 10^3/ul; Eosinophil % 2.9 % (0-6); Hematocrit 28 % (35-47); Hemoglobin 9.2 g/dl (12.0-16.0); Lymphocyte % 6.8 % (25-47); Mean Corpuscular HGB Conc 33 g/dl (31-36); Mean Corpuscular Hemoglobin 29 pg (27-31); Mean Corpuscular Volume 85 fL (80-97); Mean Platelet Volume 8.5 fL (7.4-10.4); Nucleated Red Blood Cells % 0; Platelet Count 270 10^3/ul (150-450); Red Blood Count 3.24 10^6/ul (4.00-5.40); Red Cell Distribution Width 15 % (10.5-15); White Blood Count 8.6 10^3/ul (3.5-10.8)
[2018-07-29 06:50] LABS: EGFR Non-African American 57.9 (>60)
[2018-07-29] MEDS ORDERED: Magnesium Sulf 4 GM/100 ML IV* 4,000 MG/100 ML BAG IVPB ONE (08:37)
[2018-07-29] MEDS: Magnesium Oxide TAB* 400 MG PO SCH (08:51)
[2018-07-29] MEDS: Omeprazole CAP* 20 MG PO SCH ×2 (08:52→17:05)
[2018-07-29] MEDS: FLUoxetine CAP* 20 MG PO SCH (08:52)
[2018-07-29] MEDS: busPIRone TAB* 5 MG PO SCH ×2 (08:52→20:29)
[2018-07-29] MEDS: BuPROPion XL* 150 MG TAB.XL PO SCH (08:52)
[2018-07-29] MEDS: Methadone TAB* 10 MG PO SCH ×3 (08:52→20:28)
[2018-07-29] MEDS: Ferrous Sulfate TAB* 325 MG PO SCH ×2 (10:31→20:27)
--- NOTE | 2018-07-29 16:52 | PN ---
Subjective Date of Service: 07/29/18 Interval History: Ms. Key is feeling mildly better today. She continues to have bilateral flank pain which she does not feel has really improved. She has been up ambulating and her pain is not affecting her ability to walk. She is not requiring as much dilaudid as she was previously. She is still concerned about her electrolyte abnormalities. Ostomy output not increased from baseline. She has had chronic malabsorption in the past. Still having "weird" feelings when she urinate, but denies dysuria or increased frequency. She denies CP, SOB, N/V , dizziness. Family History: Unchanged from Admission Social History: Unchanged from Admission Past Medical History: Unchanged from Admission Objective Active Medications: Bupropion HCl (Wellbutrin Xl *) 150 mg PO DAILY [facility]; Protocol Buspirone HCl (Buspar Tab*) 7.5 mg PO BID [facility] Carisoprodol (Soma Tab*) 350 mg PO TID PRN Ferrous Sulfate (Ferrous Sulfate Tab*) 325 mg PO BID [facility] Fluoxetine HCl (Prozac Cap*) 40 mg PO DAILY [facility] Hydromorphone HCl (Dilaudid Tab*) 2 mg PO Q6H PRN Magnesium Oxide (Magox 400 Tab*) 800 mg PO DAILY [facility] Methadone HCl (Dolophine Tab*) 30 mg PO TID [facility] Omeprazole (Prilosec Cap*) 20 mg PO BID@0730,1630 [facility] Promethazine HCl (Phenergan Tab*) 25 mg PO Q6H PRN Zolpidem Tartrate (Ambien Tab*) 10 mg PO BEDTIME PRN Vital Signs - 8 hr 07/29/18 07/29/18 07/29/18 11:31 13:15 15:17 Temperature 98.3 F Pulse Rate 82 Respiratory 18 17 17 Rate Blood Pressure 135/77 (mmHg) O2 Sat by Pulse 93 Oximetry Oxygen Devices in Use Now: None Appearance: Middle-aged woman sitting in bed in NAD Eyes: No Scleral Icterus Ears/Nose/Mouth/Throat: Mucous Membranes Moist Neck: NL Appearance and Movements; NL JVP Respiratory: Symmetrical Chest Expansion and Respiratory Effort, Clear to Auscultation Cardiovascular: NL Sounds; No Murmurs; No JVD, RRR Abdominal: NL Sounds; No Tenderness; No Distention Extremities: No Edema Skin: No Rash or Ulcers Neurological: Alert and Oriented x 3 Lines/Tubes/Other Access: Clean, Dry and Intact Peripheral IV Nutrition: Taking PO's Result Diagrams: 07/29/18 06:00 07/29/18 06:00 Assess/Plan/Problems-Billing Assessment: Ms. Key is a 47 year old female with PMH Crohn's Disease with colectomy and ileostomy and chronic low back pain on methadone, hx DVT and PE admitted for dysuria, flank pain, N/V and hyponatremia who is improving. - Patient Problems (1) Flank pain Current Visit: Yes Status: Acute Code(s): R10.9 - UNSPECIFIED ABDOMINAL PAIN SNOMED Code(s): 180061319 Comment: - Improving, but persistent; this may just be a manifestation of her chronic pain - Negative UA - Afebrile, leukocytosis has resolved, lactic acid normal, blood cultures negative - Abd CT without hydronephrosis; U/S also without hydronephrosis - Case previously discussed with Urology who reviewed images and stated that they would not explain her symptoms and US did not represent kidney stones - Suspect her back pain is secondary to sacroilitis secondary to Crohns (noted on CT scan); CRP is normal, ESR is elevated, pending ANGIE; may benefit from Rheumatology evaluation as outpatient (2) Iron deficiency anemia Current Visit: Yes Status: Acute Code(s): D50.9 - IRON DEFICIENCY ANEMIA, UNSPECIFIED SNOMED Code(s): 36854723 Comment: - Negative stool occult - Iron level <15 - Start ferrous sulfate BID (3) Acute kidney failure Current Visit: Yes Status: Acute Priority: Medium Comment: - Records from admission in [place] reviewed; she had CHASTITY and severe hyponatremia (118) secondary to dehydration; seen by Human Resources Representative there who did not recommend any further w/u - CHASTITY this admission was secondary to dehydration and is now resolved (4) Hypomagnesemia Current Visit: Yes Status: Acute Code(s): E83.42 - HYPOMAGNESEMIA SNOMED Code(s): 468966625 Comment: - 2/2 malabsorption d/t Crohn's and ileostomy - Despite repletion, magnesium still low - Will replete again today and continue mag oxide (5) Hyponatremia Current Visit: Yes Status: Acute Code(s): E87.1 - HYPO-OSMOLALITY AND HYPONATREMIA SNOMED Code(s): 88186748 Comment: - Now resolved - Hx of chronic hyponatremia; hold off on full workup - On some psych medications that can cause hyponatremia - Cortisol normal (6) Crohn disease Current Visit: Yes Status: Acute Code(s): K50.90 - CROHN'S DISEASE, UNSPECIFIED, WITHOUT COMPLICATIONS SNOMED Code(s): 37006714 Comment: - S/p colectomy and ileostomy with malabsorption - ESR is improved from before and CRP is normal - Follow up outpatient with gastroenterology as previosuly instructed to institute prison therapy - Start questran to decrease output and increase absorption (7) DVT prophylaxis Current Visit: No Status: Acute Code(s): WKL1274 - SNOMED Code(s): 154967266 Comment: - SCDs (8) Full code status Current Visit: Yes Status: Acute Code(s): Z78.9 - OTHER SPECIFIED HEALTH STATUS SNOMED Code(s): 156878468 Status and Disposition: Inpatient. Home when medically stable, likely tomorrow morning.
[2018-07-29] MEDS: Carisoprodol TAB* 350 MG PO PRN (20:28)
[2018-07-29] MEDS ORDERED: Cholestyramine Resin* 4 GM POWDER PO SCH (21:00)
[2018-07-30] MEDS: Carisoprodol TAB* 350 MG PO PRN (05:23)
[2018-07-30] MEDS: HYDROmorphone TAB* 2 MG PO PRN (05:24)
[2018-07-30] MEDS: Ferrous Sulfate TAB* 325 MG PO SCH (08:12)
[2018-07-30] MEDS: Magnesium Oxide TAB* 400 MG PO SCH (08:12)
[2018-07-30] MEDS: Methadone TAB* 10 MG PO SCH (08:12)
[2018-07-30] MEDS: Omeprazole CAP* 20 MG PO SCH (08:13)
[2018-07-30] MEDS: FLUoxetine CAP* 20 MG PO SCH (08:13)
[2018-07-30] MEDS: busPIRone TAB* 5 MG PO SCH (08:13)
[2018-07-30] MEDS: BuPROPion XL* 150 MG TAB.XL PO SCH (08:13)
[2018-07-30] MEDS ORDERED: Magnesium Oxide TAB* 400 MG PO SCH (09:00)
[2018-07-30] MEDS ORDERED: Cholestyramine Resin* 4 GM POWDER PO SCH (10:00)
[2018-07-30 10:35] LABS: EGFR Non-African American 58.6 (>60)
[2018-07-30 11:36] VITALS: BP 134/80
--- NOTE | 2018-07-30 21:41 | DS ---
CC: Dr. Joshua Silver; Dr. Michelle* DISCHARGE SUMMARY: DATE OF ADMISSION: 07/19/18 DATE OF DISCHARGE: 07/30/18 PRIMARY CARE PROVIDER: Dr. Joshua Silver. ATTENDING PHYSICIAN: Dr. Katty Zhu* (dictated by Stephanie Eng NP). PRIMARY DIAGNOSES: 1. Flank pain likely secondary to sacroiliitis. 2. Iron-deficiency anemia. 3. Acute kidney injury. 4. Hypomagnesemia. 5. Hyponatremia. SECONDARY DIAGNOSES: 1. Crohn's disease, status post colectomy and ileostomy. 2. Chronic back pain. 3. Anxiety. 4. Depression. 5. History of deep venous thrombosis and pulmonary embolism. STUDIES WHILE IN THE HOSPITAL: 1. Abdomen and pelvis CT on 07/19/[address] findings to correlate with the patient's symptomatology. Stable postsurgical seroma in the mesorectal fat. No evidence of active inflammatory Crohn's disease. Bilateral inflammatory bowel disease associated with sacroiliitis. 2. Abdomen and bladder ultrasound on 07/20/18 reads as potential nonobstructing echogenic foci are seen within the bilateral lower pole collecting systems and is otherwise sonographically normal examination. Postvoid residual measures approximately 10%. CONSULTATIONS WHILE IN THE HOSPITAL: Dr. Michelle saw the patient in consultation on 07/21/18 for pain management. HISTORY OF PRESENT ILLNESS AND HOSPITAL COURSE: Ms. Key is a 47-year-old female with past medical history of Crohn's disease, status post colectomy and ileostomy; chronic back pain, on methadone; anxiety; depression; and history of DVT and PE, who presented to the emergency room on 07/19/18 with complaints of back pain and dysuria. Please see the history and physical by Allyson Hurley NP, for a complete summary of the events leading up to this hospitalization. In short, the patient had been in her normal state of health the day prior to admission she began having lower back pain with associated nausea, vomiting, and dysuria. In the emergency room, she was noted to have a urinalysis positive for leukocyte esterase and white blood cells. She additionally had leukocytosis with a white blood cell count of 15.4 and an acute kidney injury with a creatinine of 1.36. Her baseline creatinine appears to be less than 1. She was also noted to have an elevated lactic that resolved with IV fluids. She was admitted by the hospitalist service for dysuria concerning for a urinary tract infection. She was placed on ceftriaxone and imaging was completed as noted above. Ultimately, she had a urine culture, which grew group B strep with a colony count of 25 to 50,000. This was determined to be likely colonization rather than acute infection and her antibiotics were subsequently discontinued. The patient's hospital stay was complicated by hyponatremia and hypomagnesemia, which were difficult to correct. Ultimately, her sodium corrected with IV fluids and as of the day of discharge, her sodium is 134. Her magnesium has been more difficult to manage, ranging from 1.0 to 1.8. She received daily replacement and as of the day of discharge, her magnesium is 1.7. It was determined that the hypomagnesemia is secondary to malabsorption due to her Crohn's disease and ileostomy. I will also note that she was hospitalized earlier this year in [place] where she was also found to be hyponatremic with a sodium in the 110s. For that reason, a full workup was not done and her sodium was able to correct on its own. The patient continued to have flank pain. As noted on CT, she was found to have sacroiliitis and so this is likely the cause of her flank pain. As of today, an ANGIE is pending to determine if she has any rheumatological disease. Her CRP was 16 and ESR was 30. The pain has improved and she has been able to manage with NSAIDs and her current methadone dosing. Her acute kidney injury resolved with IV fluids and as of the day of discharge, her creatinine was 1.02. On 07/28/18, she was found to be anemic with an H and H of 6.8 and 21. Iron studies were done and she was noted to have an iron level less than 15, TIBC was 364, transferrin was 260, and ferritin was 18.3. It was determined that this anemia was iron deficiency and she was started on ferrous sulfate. She did have a negative stool occult. As of today, the patient reports feeling better. She continues to have pain, though notes this has improved and she has been ambulatory without difficulty. Her electrolytes are improved as noted above. It is likely that the hypomagnesemia will be a chronic issue for her due to malabsorption. Additionally, she may have difficulty increasing her iron levels due to malabsorption, though as of the day of discharge, her H and H are 9.2 and 28. The patient otherwise reports feeling well today and is anxious to return home. Ms. Key is stable for discharge today. Vital signs are as follows: Temp 98.1, heart rate 80, respiratory rate 18, oxygen saturation 96% on room air, blood pressure 134/80. DISCHARGE MEDICATIONS: New home medications: 1. Cholestyramine 4 g p.o. daily. 2. Ferrous sulfate 325 mg p.o. b.i.d. Changed home medication: Magnesium oxide 800 mg p.o. b.i.d. (previously was 400 mg daily). Continued home medications: 1. Bupropion XL 150 mg p.o. daily. 2. Buspirone 7.5 mg p.o. b.i.d. p.r.n. anxiety. 3. Fluoxetine 40 mg p.o. daily. 4. Ibuprofen 600 mg p.o. t.i.d. p.r.n. pain. 5. Methadone oral concentration 30 mg p.o. t.i.d. 6. Omeprazole 20 mg p.o. b.i.d. 7. Phenergan 25 mg p.o. q.6 hours p.r.n. nausea. 8. Ambien 12.5 mg p.o. at bedtime p.r.n. insomnia. DISCHARGE PLAN: Ms. Key will be discharged to home. Activity will be as tolerated. Diet will be regular as tolerated. Medications are noted above. She has been started on Questran in an attempt to slow her ostomy output and increase absorption. She has been started on ferrous sulfate for her iron- deficiency anemia and her magnesium oxide dosing has been increased. She should continue to use ibuprofen for pain management. She will need to follow up with her PCP in 4 to 7 days. At that point, her PCP will need to determine if she will need to see Rheumatology as an outpatient. It is also recommended that her labs be rechecked at that time to check her H and H, sodium, and magnesium. The patient has been instructed to return to the emergency room or nearest hospital for any worsening of symptoms, shortness of breath, lightheadedness, dizziness, chest discomfort, high fevers, chills, night sweats , loss of consciousness, or any other worrisome signs or symptoms. This is a summarized report of a complex medical history and hospital stay. For further details, please see the entire medical record. TIME SPENT: Approximately 45 minutes were spent on this discharge, greater than half of that time spent [id number] with the patient discussing discharge plans and instructions. STEPHANIE ENG, PRESS READER [id number]/CPS #: [id number] WILLIAM
== END 2018-07-30 13:24 | disposition home or self-care (01) | DRG 386 ==
LOC: ED 15:04 → MED 18:30
PROVIDERS: ADMIT Internal Medicine; ATTEND Internal Medicine
PROC: 30233N1 Transfusion of Nonautologous Red Blood Cells into Peripheral Vein, Percutaneous Approach (ICD-10-PCS; principal; 2018-07-28)
DX: K50.90 Crohn's disease, unspecified, without complications (principal); N17.9 Acute kidney failure, unspecified; E87.1 Hypo-osmolality and hyponatremia; K91.872 Postprocedural seroma of a digestive system organ or structure following a digestive system procedure; K90.89 Other intestinal malabsorption; M46.1 Sacroiliitis, not elsewhere classified; F17.210 Nicotine dependence, cigarettes, uncomplicated; G89.29 Other chronic pain; F41.9 Anxiety disorder, unspecified; F32.9 Major depressive disorder, single episode, unspecified; E83.42 Hypomagnesemia; M54.9 Dorsalgia, unspecified; R10.9 Unspecified abdominal pain; E86.0 Dehydration; N18.9 Chronic kidney disease, unspecified; D50.9 Iron deficiency anemia, unspecified; Y65.8 Other specified misadventures during surgical and medical care; Y73.3 Surgical instruments, materials and gastroenterology and urology devices (including sutures) associated with adverse incidents; R30.0 Dysuria; Z88.5 Allergy status to narcotic agent; Z88.0 Allergy status to penicillin; Z88.8 Allergy status to other drugs, medicaments and biological substances; Z86.718 Personal history of other venous thrombosis and embolism; Z86.711 Personal history of pulmonary embolism; Z86.14 Personal history of Methicillin resistant Staphylococcus aureus infection; Z86.19 Personal history of other infectious and parasitic diseases; Z88.6 Allergy status to analgesic agent; Z91.041 Radiographic dye allergy status; Z90.49 Acquired absence of other specified parts of digestive tract; Z90.721 Acquired absence of ovaries, unilateral; Z91.5 Personal history of self-harm; Z93.2 Ileostomy status; Z82.49 Family history of ischemic heart disease and other diseases of the circulatory system; Y92.009 Unspecified place in unspecified non-institutional (private) residence as the place of occurrence of the external cause; Z83.3 Family history of diabetes mellitus
CPT/HCPCS: 36415; 74176; 76770; 80048; 80053; 81003; 81015; 82247; 82270; 82436; 82533; 82728; 83010; 83540; 83550; 83605; 83615; 83690; 83735; 84133; 84134; 84300; 84439; 84443; 85014; 85018; 85025; 85045; 85652; 86038; 86140; 86850; 86900; 86901; 86922; 87040; 87077; 87086; 99284; A9270-GY; J0696; J1170; J1650; J2405; J3475; J3480; P9040

== ENCOUNTER 2018-08-25 10:42 | Inpatient (IN) | payer MEDICARE ==
[2018-08-25] MEDS ORDERED: NS 0.9% 1000 ML* 1,000 ML IV ONE (11:08)
[2018-08-25 11:31] LABS: Hematocrit 46 % (35-47); Hemoglobin 15.6 g/dl (12.0-16.0); Mean Corpuscular HGB Conc 34 g/dl (31-36); Mean Corpuscular Hemoglobin 28 pg (27-31); Mean Corpuscular Volume 82 fL (80-97); Red Blood Count 5.62 10^6/ul (4.00-5.40); Red Cell Distribution Width 16 % (10.5-15); White Blood Count 14.8 10^3/ul (3.5-10.8)
[2018-08-25 11:42] LABS: Albumin 4.6 g/dL (3.2-5.2); Calcium 9.8 mg/dL (8.6-10.3); Chloride 90 mmol/L (101-111)
[2018-08-25 11:47] LABS: ALT 23 U/L (7-52); Alkaline Phosphatase 137 U/L (34-104); BUN/Creatinine Ratio 7.9 (8-20); Blood Urea Nitrogen 10 mg/dL (6-24); EGFR Non-African American 45.5 (>60); Globulin 4.7 g/dL (2-4); Glucose 137 mg/dL (70-100); Total Protein 9.3 g/dL (6.4-8.9)
[2018-08-25 11:53] LABS: ABS Basophils 0 10^3/ul (0-0.2); ABS Eosinophils 0.1 10^3/ul (0-0.6); ABS Lymphocytes 0.8 10^3/ul (1.0-4.8); ABS Monocytes 0.5 10^3/ul (0-0.8); ABS Neutrophils 13.4 10^3/ul (1.5-7.7); ABS Nucleated RBC 0 10^3/ul; Eosinophil % 0.9 %; Lymphocyte % 5.7 %; Nucleated Red Blood Cells % 0.1; Platelet Count Platelets clumped. 10^3/ul (150-450)
[2018-08-25] MEDS ORDERED: HYDROmorphone INJ* 2 MG/ML CARPUJECT SYRINGE IV SLOW PU ONE ×2 (11:53→14:33)
--- NOTE | 2018-08-25 11:53 | ED ---
GI/ HPI - HPI Summary HPI Summary: Mitesh is a 47 y/o F presenting to ED with complaints of abdominal pain, back pain, N/V, and blood in stool. She states that over the past few days, "I haven' t felt so great". Patient is concerned about flare-up of her Crohn's disease. However, she is worried that she is producing blood into her colostomy bag. Patient reports that she was producing small red clots of blood at first but has recently been more "watery". She notes that she was [place] [facility] [place] ago for a bleed as well, states that she received two units of blood, claims origin of bleed was undetermined. Patient has been experiencing flare-ups of Crohn's since April. Patient states that she typically takes methadone for pain but has been vomiting and unable to take. No fever, chills, rash. Patient has had colostomy bag since 2001. She is a former smoker, denies alc or substances usage. was present in the room. On triage, pain is rated 8/10. Home medications and allergies are reviewed. - History of Current Complaint Chief Complaint: EDGIBleed Time Seen by Provider: 08/25/18 11:04 Stated Complaint: VOMITING BLOOD/BACK PAIN Hx Obtained From: Patient Onset/Duration: Started Days Ago - a few days ago, Still Present Timing: Lasting Days - a few days ago Severity: Severe - 8/10 Current Severity: Severe - 8/10 Pain Intensity: 8 Associated Signs and Symptoms: Positive: Back Pain, Nausea, Vomiting, Blood w/ Stool, Abdominal Pain Aggravating Factor(s): Nothing Alleviating Factor(s): Nothing - Additional Pertinent History Primary Care Physician: FRANCISCO - Allergy/Home Medications Allergies/Adverse Reactions: Allergies Allergy/AdvReac Type Severity Reaction Status Date / Time acetaminophen [From Tylenol] Allergy Rash Verified 07/19/18 15:30 benzocaine Allergy Anaphylatic Verified 07/19/18 15:30 Shock cyclobenzaprine Allergy Rash Verified 07/19/18 15:30 [From Flexeril] fentanyl Allergy Rash Verified 07/19/18 15:30 Iodinated Contrast- Oral and Allergy Rash Verified 07/19/18 15:30 IV Dye ketorolac [From Toradol] Allergy Hives Verified 07/19/18 15:31 morphine Allergy Rash Verified 07/19/18 15:30 Penicillins Allergy Rash Verified 07/19/18 15:30 patch Allergy Rash Uncoded 08/25/18 10:49 Home Medications: Home Medications Betamethasone Saida 0.1% CM(NF) [Valisone 0.1% CM(NF)] 1 applic TOPICAL BID PRN [History Confirmed 08/25/18] Carisoprodol TAB* [Soma TAB*] 350 mg PO Q6H PRN 08/25/18 [History Confirmed ] busPIRone TAB* [Buspar TAB*] 7.5 mg PO BID 08/25/18 [History Confirmed 08/25/18] PMH/Surg Hx/FS Hx/Imm Hx Previously Healthy: No Endocrine/Hematology History: Reports: Hx Blood Transfusions, Hx Anemia Cardiovascular History: Reports: Hx Deep Vein Thrombosis, Hx Embolism, Hx Hypotension, Other Cardiovascular Problems/Disorders - Pericarditis Respiratory History: Reports: Hx Pulmonary Embolism, Other Respiratory Problems/ Disorders - HX OF PE X2 GI History: Reports: Hx Crohn's Disease, Hx Obstructive Bowel, Hx Ileostomy - Ileostomy History: Reports: Hx Kidney Infection, Hx Kidney Stones Musculoskeletal History: Reports: Hx Back Problems - sciatic nerve issues Sensory History: Denies: Hx Contacts or Glasses, Hx Hearing Aid Opthamlomology History: Denies: Hx Contacts or Glasses Psychiatric History: Reports: Hx Anxiety - Controlled w meds, Hx Depression - "long time ago", Hx Suicide Attempt - once, Hx Substance Abuse - opioid - Cancer History Hx Chemotherapy: No - Surgical History Surgery Procedure, Year, and Place: LEFT OOPHORECTOMY 2006. CHOLECYSTECTOMY. APPENDECTOMY. TOTAL COLECTOMY with LUQ ILEOSTOMY 2001. CROHNS SURGERY- multiple abd surgeries (prior to 2001) Hx Anesthesia Reactions: No - Immunization History Date of Tetanus Vaccine: Unknown Date of Influenza Vaccine: has not received Infectious Disease History: No Infectious Disease History: Reports: Hx Clostridium Difficile, Hx of Known/ Suspected MRSA - pt states many years ago Denies: Hx Hepatitis, Hx Human Immunodeficiency Virus (HIV), Traveled Outside the [place] in Last 30 Days - Family History Known Family History: Positive: Cardiac Disease - maternal grandmother, Diabetes - father, uncle, maternal grandmother , Other - Grandparents: [place] - Social History Alcohol Use: None Hx Substance Use: No Substance Use Type: Reports: None Hx Tobacco Use: Yes Smoking Status (MU): Light Every Day Tobacco Smoker Type: Cigarettes Amount Used/How Often: 1/2ppd Have You Smoked in the Last Year: Yes Review of Systems Negative: Fever, Chills Positive: Abdominal Pain, Vomiting, Nausea Positive: other - POSITIVE - BLOOD WITH STOOL Positive: Other - POSITIVE - BACK PAIN Negative: Rash All Other Systems Reviewed And Are Negative: Yes Physical Exam - Summary Physical Exam Summary: Vital Signs Reviewed: Yes A+Ox3, no distress Eyes: Conjunctiva Clear, ALEKSANDRA. EOM intact and full ENT: Hearing grossly normal TM x 2 clear, mmoist, uvula midline, no exudate, no erythema Neck: Positive: Supple Respiratory: Positive: No respiratory distress, No accessory muscle use + CTA throughout no w/r Cardiovascular: RRR nl s1, s2 no m/r CBT <2 sec abd soft + BS/ nt/nd no guarding, no distension, colostomy with darl brown liquid stool Musculoskeletal Exam: CRUZ x 4 without difficulty Strength Intact, ROM Intact Neurological: Positive: Alert, + sensation throughout Psychological: Positive: Normal Response To Family Skin: Positive: no rash, no ecchymosis Triage Information Reviewed: Yes Vital Signs On Initial Exam: Initial Vitals Temp Pulse Resp BP Pulse Ox 97.6 F 110 16 140/66 99 08/25/18 10:45 08/25/18 10:45 08/25/18 10:45 08/25/18 10:45 08/25/18 10:45 Vital Signs Reviewed: Yes Diagnostics - Vital Signs Vital Signs Temp Pulse Resp BP Pulse Ox 08/25/18 10:45 97.6 F 110 16 140/66 99 - Laboratory Lab Results: Lab Results 08/25/18 08/25/18 Range/Units 11:22 11:22 WBC 14.8 H (3.5-10.8) 10^3/ul RBC 5.62 H (4.00-5.40) 10^6/ul Hgb 15.6 (12.0-16.0) g/dl Hct 46 (35-47) % MCV 82 (80-97) fL MCH 28 (27-31) pg MCHC 34 (31-36) g/dl RDW 16 H (10.5-15) % Plt Count Pending MPV Pending Neut % (Auto) Pending Lymph % (Auto) Pending Rains % (Auto) Pending Eos % (Auto) Pending Baso % (Auto) Pending Absolute Neuts (auto) Pending Absolute Lymphs (auto) Pending Absolute Monos (auto) Pending Absolute Eos (auto) Pending Absolute Basos (auto) Pending Absolute Nucleated RBC Pending Nucleated RBC % Pending Sodium Pending Potassium Pending Chloride 90 L (101-111) mmol/L Carbon Dioxide Pending Anion Gap Pending BUN Pending Creatinine Pending Est GFR ( Amer) Pending Est GFR (Non-Af Amer) Pending BUN/Creatinine Ratio Pending Glucose Pending Calcium 9.8 (8.6-10.3) mg/dL Magnesium Pending Total Bilirubin 0.70 (0.2-1.0) mg/dL AST Pending ALT Pending Alkaline Phosphatase Pending Total Protein Pending Albumin 4.6 (3.2-5.2) g/dL Globulin Pending Albumin/Globulin Ratio Pending Result Diagrams: 08/25/18 11:22 08/25/18 12:35 Lab Statement: Any lab studies that have been ordered have been reviewed, and results considered in the medical decision making process. - Radiology abdomen x-ray Radiology Interpretation Completed By: Radiologist Summary of Radiographic Findings: IMPRESSION: 1. POSTSURGICAL CHANGES. 2. NO EVIDENCE FOR OBSTRUCTION. 3. BILATERAL SACROILIITIS. THIS REPORT WAS REVIEWED BY ED PHYSICIAN. Re-Evaluation - Re-Evaluation First Eval Re-Evaluation Time: 12:38 Comment: pain and nausea are still present, awaiting UA and imaging. Second Eval Re-Evaluation Time: 14:01 Comment: continues with abdominal pain and nausea, no vomiting in ED. Pt states feels "itchy" from Dilaudid, requesting benadryl. Pt's sodium 120. will d/w hospital regarding observation. Xray - no obstruction, acute process GIGU Course/Dx - Course Course Of Treatment: Patient with a complex medical history including Crohn's disease with colostomy and multiple revisions. Patient cigarettes with 4 days of abdominal pain, reporting nausea, emesis with specks of blood as well as reports of small clots in her ostomy bag. Patient also states she's got abdominal pain. Patient unable to tolerate her promethazine her methadone for pain. Patient denies fevers or chills. Patient denies trauma. Patient's concerned because she had a GI bleed requiring transfusions in July. Patient's medications reviewed this visit. On exam vital signs are stable. We' ll give patient analgesia and antiemetics. We'll check a free air series as well as labs. We'll also check urine as patient's been noted had UTIs. Patient comfortable in agreement with plan. We'll reassess. - Diagnoses Provider Diagnoses: Hyponatremia - Physician Notifications Discussed Care Of Patient With: Dahiana Calderón Time Discussed With Above Provider: 14:49 Instructed by Provider To: Admit As Observation - Patient's case was discussed with Dr. Calderón, Dr. Calderón accepts patient for admission. Discharge - Sign-Out/Discharge Documenting (check all that apply): Patient Departure - d - Discharge Plan Condition: Good Disposition: ADMITTED TO [facility] Referrals: Nadeem CASTILLO,Joshua Montes [Primary Care Provider] - - Billing Disposition and Condition Condition: GOOD Disposition: Admitted to [facility] - Attestation Statements Document Initiated by Lea: Yes Documenting Scribe: Celio Harkins Provider For Whom Geovanyibe is Documenting (Include Credential): Cindy Evans MD Scribe Attestation: I, Celio Harkins, scribed for Cindy Evans MD on 08/25/18 at 1433. Scribe Documentation Reviewed: Yes Provider Attestation: The documentation as recorded by the scribeCelio accurately reflects the service I personally performed and the decisions made by me, Cindy Evans MD Status of Scribe Document: Viewed
[2018-08-25] MEDS ORDERED: Ondansetron INJ* 2 MG/ML VIAL IV ONE (11:54)
[2018-08-25] MEDS ORDERED: HYDROmorphone INJ1* 1 MG/ML SYRINGE IV ONE (12:00)
[2018-08-25] MEDS ORDERED: NS 0.9% 1000 ML* 1,000 ML IV SCH ×3 (12:00→21:03)
[2018-08-25 13:07] LABS: CO2 Carbon Dioxide 19 mmol/L (22-32); Magnesium 1.8 mg/dL (1.9-2.7); Sodium 120 mmol/L (135-145)
[2018-08-25] MEDS ORDERED: diPHENhydraMINE IV* 25 MG in NS 0.9% 50 ML* 50 ML IVPB ONE (14:08)
[2018-08-25] MEDS ORDERED: NS 0.9% 50 ML* 50 ML ONE (14:28)
[2018-08-25] MEDS ORDERED: diPHENhydraMINE PO* 25 MG PO ONE (14:33)
[2018-08-25] MEDS ORDERED: HYDROmorphone INJ1* 1 MG/ML SYRINGE IV SLOW PU ONE (15:00)
[2018-08-25] MEDS ORDERED: PROCHLORPERAZINE INJ 5 MG/ML 2 ML VIAL IV PRN (15:29)
[2018-08-25] MEDS ORDERED: Ondansetron INJ* 2 MG/ML VIAL IV PRN (15:29)
[2018-08-25] MEDS ORDERED: Magnesium Sulfate 2 GM IV* 2 GM/50 ML BAG IVPB ONE (15:34)
[2018-08-25] MEDS ORDERED: Zolpidem TAB* 10 MG PO PRN (15:37)
[2018-08-25] MEDS ORDERED: Ciprofloxacin 400MG IVPREMIX(* 400 MG/200 ML BAG IVPB SCH (16:00)
[2018-08-25 16:49] LABS: Erythrocyte Sed Rate 23 mm/Hr (0-14)
[2018-08-25 16:54] LABS: C Reactive Protein 1.88 mg/L (<8.01)
[2018-08-25] MEDS ORDERED: cefTRIAXone(*) 1 GM in NS 0.9% 50 ML* 50 ML IVPB SCH (17:00)
[2018-08-25] MEDS: Pantoprazole IV* 40 MG IV SCH (17:17)
[2018-08-25] MEDS: metroNIDAZOLE IV 500 MG/100ML* 500 MG/100 ML BAG IVPB SCH (17:50)
[2018-08-25] MEDS: HYDROmorphone INJ1* 1 MG/ML SYRINGE IV SLOW PU PRN ×2 (18:03→22:14)
--- NOTE | 2018-08-25 19:16 | HP ---
CC: Dr. Mcguire; Dr. Silver * HISTORY AND PHYSICAL: DATE OF ADMISSION: 08/25/18 ATTENDING PHYSICIAN: Dr. Calderón.* (DICTATED BY NIKI DEAN NP) CHIEF COMPLAINT: 1. Blood in ostomy. 2. Vomiting blood. 3. Abdominal pain. HISTORY OF PRESENT ILLNESS: Ms. Key is a 47-year-old female patient. She carries a history of Crohn's, chronic back pain, anxiety, depression, history of DVT and PE along with a history of anxiety. She is presenting to the ER today stating that the last few days she just has not been feeling well. She has been having issues with nausea and vomiting, lower back pain worsening. She has been noticing that she had a couple of episodes of blood in her ostomy. In addition to this, she was having vomitus with blood. She does admit to having abdominal discomfort that starts on around her left side and goes around into her back. She denies having any chest pain or shortness of breath. There have been no noted fevers. She states there has not been any recent change in medication. She says that she was concerned because she really was not able to keep things down. She was concerned that she may be having a flare, so she came into the ER today. There has not been any noted vomiting in the ED of blood or any blood in the ostomy down here. She again denied any chest pain or shortness of breath, and no fevers were reported. She came into the ER. She was evaluated. She was noted to be hyponatremic, in addition to this noted to have an elevated white cell count. So because of these findings, we were asked to evaluate for admission. PAST MEDICAL HISTORY: Significant for: 1. Crohn's. 2. Chronic back pain. 3. Anxiety. 4. Depression. 5. DVT. 6. PE. 7. She recently was diagnosed with flank pain secondary to sacroiliitis. PAST SURGICAL HISTORY: She has had: 1. Colostomy with ileostomy. 2. Lysis of adhesions. 3. Cholecystectomy. 4. Left ovary removal. ALLERGIES TO MEDICATIONS: Include TYLENOL, BENZOCAINE, FLEXERIL, FENTANYL, IV DYE and P.O. DYE, KETOROLAC, MORPHINE, PENICILLIN. FAMILY HISTORY: Her mother has hyperlipidemia. Father's history denied. SOCIAL HISTORY: She was a half-a-pack a day smoker, she says she has quit. She does not drink alcohol. Surrogate decision maker is her partner Abad. REVIEW OF SYSTEMS: There is no documented fever. She denies having any significant weight change. There is no double vision. She denied having any ear discharge. There is no rhinorrhea. There is no sore throat. No thyroid enlargement. She denies having any chest pain. There is no orthopnea. There is no nocturnal dyspnea. There is abdominal pain per my HPI. She did admit to nausea with vomiting. She denies any dysuria. There is no frequency, no seizure, no loss of consciousness, no pruritus, and no skin ulcerations. Review of 14 systems completed, all others negative. PHYSICAL EXAMINATION GENERAL: At this time, Ms. Key is a 47-year-old female patient. She is sitting in the ED stretcher. She does not appear to be in any acute distress. VITAL SIGNS: Blood pressure 140/66, pulse 110, respirations 16, O2 sat 99%, temperature 97.6. HEENT: Head: Atraumatic and normocephalic. Eyes: EOMs intact. Sclerae anicteric and not pale. Throat: Oral mucosa appears to be dry. No oropharyngeal erythema. NECK: Supple. LUNGS: Clear to auscultation bilaterally. There are no wheezes, rales, or rhonchi. HEART: Heart sounds S1, S2. Regular rate and rhythm. She is tachycardic. No murmurs, rubs, or gallops. ABDOMEN: Soft. It was tender on the left lower quadrant and also the ileostomy was noted to be in place. The stoma was pink. I did not appreciate any nereida blood. The discharge was again noted to be liquid consistency and appeared to be green. She did have some CVA tenderness on her left side as well , but no distention was noted. Bowel sounds were present. EXTREMITIES: Pulses were 2+ throughout. She is moving all 4 extremities with 5 /5 strength. NEUROLOGIC: She is awake. She is alert. She is oriented x3. No gross focal deficits. SKIN: Intact. DIAGNOSTIC STUDIES/LAB DATA: WBC of 14.8, RBC of 5.62, hemoglobin of 15.6, hematocrit 46, and platelet count not performed. Sodium 120, potassium pending , chloride 90, bicarb 19, creatinine was 1.27, BUN 10, glucose 137, calcium 9.8 , mag 1.8. Total bili 0.7, ALT 23, alk phos 137. Troponin 0.01. TSH and cortisol pending. She did have an abdominal x-ray obtained today, which showed no evidence for obstruction, bilateral sacroiliitis which is unchanged from prior CT, and postsurgical changes. Old medical records were reviewed. ASSESSMENT AND PLAN: Ms. Key is a 47-year-old female patient with a complex medical history, coming into the ED today with complaints of again vomiting blood although none seen here, in addition to this having some bloody discharge from the ostomy, in addition to this also found to have hyponatremia and an elevated white count. She will be admitted under inpatient status for: 1. Hyponatremia. I suspect this is probably secondary to increasing output from the ostomy, in addition to this with vomiting she is probably dehydrated and she has been unable to keep up with her p.o. intake, so I will send off a urine sodium, serum osmol, urine osmol, TSH and cortisol. I will hydrate the patient and we will continue to follow. I will check BMPs every 6 hours. 2. Leukocytosis. This could be secondary to underlying infection. We will panculture her. I will put her on Rocephin and Flagyl. I am getting a CT of the abdomen. I will go ahead and again get blood cultures, urinalysis, urine culture. She did have group B strep previously, and we will continue to follow. 3. Chronic back pain. This could be secondary to the sacroiliitis. We will order p.r.n. Dilaudid. We will continue her meds as prescribed. 4. Hematemesis and blood from ostomy. Again, she was taking NSAIDs at discharge. It is unclear if she has continued these or not. I do have a call out to Dr. Mcguire to help us. We may need to consider endoscopy. I have ordered b.i.d. PPIs and serial H and H and I am also asking for a midline to secure better IV access. 5. Anxiety and depression. Continue with supportive care. Continue meds as prescribed. 6. Chronic pain. Continue meds as prescribed. 7. History of deep venous thrombosis and pulmonary embolism. Again, I would like to put her on heparin subcu or Lovenox subcu for prevention; however, with her concerns of bleeding, I am holding, I am just putting her on SCDs. 8. DVT prophylaxis: Again, she is high risk, but I am putting her on SCDs because of the concern of bleeding. 9. Fluids, electrolytes, and nutrition: Clear liquid diet. 10. Code status: Full code. TIME SPENT: Time spent on the admission was 60 minutes, greater than half of the time was spent [id number] with the patient obtaining my history and physical, other half of the time was spent going over the plan of care with the patient and implementing plan of care. I did discuss the plan of care with my attending Dr. Calderón, and she is in agreement. NIKI DEAN, RADHA [id number]/CPS #: [id number] MTDJud
[2018-08-25 20:03] LABS: Hematocrit 37 % (35-47); Hemoglobin 12.3 g/dl (12.0-16.0)
[2018-08-25 20:14] LABS: BUN/Creatinine Ratio 8.9 (8-20); Calcium 8.2 mg/dL (8.6-10.3); EGFR Non-African American 42.4 (>60); Potassium 3.4 mmol/L (3.5-5.0)
[2018-08-25] MEDS: busPIRone TAB* 5 MG PO SCH (22:05)
[2018-08-25] MEDS: Magnesium Oxide TAB* 400 MG PO SCH (22:05)
[2018-08-25] MEDS: Ferrous Sulfate TAB* 325 MG PO SCH (22:05)
[2018-08-25] MEDS: Methadone TAB* 10 MG PO SCH (22:06)
[2018-08-25] MEDS: KCL 10 MEQ/50 ML IVPREMIX* 10 MEQ/50 ML BAG IV SCH (22:35)
[2018-08-26] MEDS: KCL 10 MEQ/50 ML IVPREMIX* 10 MEQ/50 ML BAG IV SCH ×2 (00:24→02:09)
[2018-08-26 00:53] LABS: Urine Appearance Cloudy; Urine Bacteria 1+ (Absent); Urine Bilirubin Negative (Negative); Urine Blood 2+ (Negative); Urine Color Yellow; Urine Glucose Negative (Negative); Urine Ketones Negative (Negative); Urine Nitrite Negative (Negative); Urine Protein Negative (Negative); Urine Red Blood Cell 2+(6-10/hpf) (Absent); Urine Specific Gravity 1.002 (1.010-1.030); Urine Urobilinogen Negative (Negative); Urine White Blood Cell 3+(>20/hpf) (Absent)
[2018-08-26 00:56] LABS: Urine Creatinine Concentration 28.45 mg/dL; Urine Sodium Concentration < 18 mmol/L
--- NOTE | 2018-08-26 00:56 | CONS ---
GASTROENTEROLOGY CONSULT: DATE: 08/25/18 CONSULTING PRACTITIONER: Pawel Pendleton NP; Joshua Silver MD, [place], [place] REASON FOR CONSULTATION: Nausea and vomiting with some blood streaking seen and some blood in ileostomy output. HISTORY: This 47-year-old woman with a history of Crohn's disease beginning around age 20 (felt to be UC then) and status post 7 surgeries including a sub total colectomy (last surgery a ileostomy revision 2001 at [facility]) says that she was feeling pretty good at her baseline about 2 weeks ago and then gradually began to have more abdominal discomfort. She developed blood in her stoma on Friday 2 days ago. There was no fever or any dizziness or other obvious change. She was eating solid food at that time. The next day, yesterday, she became anorectic and started to have some vomiting. She saw a little bit of blood in the emesis today. She says that ever since an April hospitalization, she has been having off and on discomfort, feelings of weakness, changes in her ostomy output, and blood draws have shown hyponatremia. Looking in the laboratory record of April until now, there has been a fairly tight variability of Na+ between 128 and 134. With more questions she speaks in a rapid fire sequence and it is difficult to find a long interval where she was stable without flares of some type of symptom. Her last use of prednisone was a tapering dose 40 mg, 30 mg, 20 mg prescribed in mid April 2018. 2 stools for OB from Ileostomy effluent 11/04/15 and were both negative Her diet at home is general, trying to avoid raw vegetables and fruits and nuts. During her hospitalization here for 11 days in July, the focus was on flank and pelvic area pain and Dr Michelle did a pain consult . She was here 11 days and did receive 2 units of packed cells when her hemoglobin fell to from 8.4 to 6.8 one day with no external blood loss noted. It was somewhat mysterious. It is the only transfusion she has had in the last 6 years here and indeed she recalls last transfusion in 2001 when she was at [facility] in [place]. PAST MEDICAL HISTORY: 1. Crohn's disease - onset with diarrhea that was at times bloody in the late 80s. After it became refractory, she was disabled. She had colectomy and a Ileoanal J pouch and then ileostomy in the mid to late (a total of 6 surgeries in [place]) mostly by Dr Mukund Brady, colorectal surgeon. She had finally a revision ostomy at [facility] in [place] in 2001.There were several admission to [facility] in 2001 to 2002. In [address] Álvarez was entirely normal. Capsule endoscopies were normal in 2003 and 2005. In 2012, an ileoscopy through the stoma by Dr Álvarez found erosions in her terminal ileum and a biopsy did show granulomas. After that 2012 ileoscopy, she was on prednisone and there have been many short admissions for N+V or pain treated conservatively and sent home on prednisone some of the time. She recognizes from reading Remicade and Humira, though has never been on them. She does not recognize 6-MP or azathioprine. 2. Depression - Anxiety psychiatry admission to [facility] 2001 3. History of DVT (right arm in [facility]) and right leg DVT during [facility] MRSA sepsis admission 2001 4. Chronic low back pain. 5. Status post cholecystectomy. 6. Status post appendectomy. 7. Left oophorectomy. 8. Chronic pain syndrome - on methadone since 2001 9. Chronic smoking. HOME MEDICATIONS: Bupropion, fluoxetine, carisoprodol, methadone, buspirone, cholestyramine (not confirmed), and magnesium oxide. SOCIAL HISTORY: She is for 25 years. Her works in the [employer] system. She has a son from a prior relationship Zacarias. REVIEW OF SYSTEMS: No history of fever at home, hemoptysis, chronic cough, seizure, fainting, heart failure, cardiac arrhythmia, TB. No renal abnormalities now. PHYSICAL EXAM: She is a somewhat cachectic-appearing, chronically ill woman, in no cardiopulmonary distress at this time. She is in bed sitting elevated at 30 degrees. Her neck shows no adenopathy. Lungs are clear. Heart sounds are regular. The abdomen has an ostomy bag in the upper midline. There is a beefy- red stoma with dark-brown ileostomy effluent. Bowel sounds are positive and not mechanical. The abdomen is scaphoid with very low subcutaneous fat. Extremities show no edema. DIAGNOSTIC STUDIES/LAB DATA: White count 14.8, hemoglobin 15.6, hematocrit 46, MCV 82. Sodium 120, BUN 10, creatinine 1.27, albumin 4.6. Most recent B12 of 254 on 06/30/17 and BNP 37 on 06/26/17. Cortisol today 18.39. Free T4 0.58 on 07/27/18. CT scan - Reviewed and there appears to be a dilated area of bowel in the lower ileum, image 52 of 83 on axial images. No oral contrast was administered. There is no bowel wall thickening focally. IMPRESSION: This 47-year-old woman, who has had a complete colectomy for Crohn' s in 1994 and then ileostomy and 5 years ago had some granulomas and a biopsy of erosions in the ileum, continues to have a difficult course with many ER presentations for nonspecifice N+V and ileostomy output problems. This is probably from a combination of adhesions and chronic pain issues with her ostomy. At the moment, it is hard to be sure what is the dominant issue with this admission. There could be a partial obstruction though she is not grossly distended and ileostomy output never stopped. There is no strong evidence for ongoing Crohn's though that is a possibility which ileoscopy might help pin down. The status of her rectal stump is unclear but there is indication that plays a role now. She has had 4 or 5 EGDs over time and no significant bleeding or high risk lesion has every been seen so with cessation of the hematemesis and impression of a small volume will not do EGD unless signs change. She is clearly quite dehydrated and run-down and whatever plan that is formulated should try to reverse that. She would probably benefit from some parenteral iron. An ileoscopy might help confirming the extent of Crohn's activity. An immunomodulator could be considered. [id number]/[facility] #: [id number] CABRINI MEDICAL CENTERJud
[2018-08-26 00:59] LABS: Hematocrit 37 % (35-47); Hemoglobin 12.6 g/dl (12.0-16.0)
[2018-08-26] MEDS: HYDROmorphone INJ1* 1 MG/ML SYRINGE IV SLOW PU PRN ×4 (02:11→14:08)
[2018-08-26] MEDS: Pantoprazole IV* 40 MG IV SCH ×2 (03:37→17:57)
[2018-08-26] MEDS: metroNIDAZOLE IV 500 MG/100ML* 500 MG/100 ML BAG IVPB SCH ×2 (03:42→11:42)
[2018-08-26 05:57] LABS: ABS Basophils 0.1 10^3/ul (0-0.2); ABS Eosinophils 0.3 10^3/ul (0-0.6); ABS Neutrophils 9.9 10^3/ul (1.5-7.7); ABS Nucleated RBC 0 10^3/ul; Eosinophil % 2.2 %; Hematocrit 37 % (35-47); Hemoglobin 12.2 g/dl (12.0-16.0); Lymphocyte % 8.3 %; Mean Corpuscular HGB Conc 34 g/dl (31-36); Mean Corpuscular Hemoglobin 28 pg (27-31); Mean Corpuscular Volume 82 fL (80-97); Nucleated Red Blood Cells % 0; Platelet Count 362 10^3/ul (150-450); Red Blood Count 4.43 10^6/ul (4.00-5.40); Red Cell Distribution Width 15 % (10.5-15); White Blood Count 12.2 10^3/ul (3.5-10.8)
[2018-08-26 06:07] LABS: BUN/Creatinine Ratio 10.8 (8-20); Calcium 7.8 mg/dL (8.6-10.3); EGFR Non-African American 48.6 (>60); Potassium 4.2 mmol/L (3.5-5.0)
[2018-08-26] MEDS ORDERED: Cholestyramine Resin* 4 GM POWDER PO SCH (09:00)
--- NOTE | 2018-08-26 14:21 | CONS ---
HISTORY AND PHYSICAL CONSULTATION: DATE OF CONSULT: 08/26/18 SERVICE: General Surgery. ATTENDING SURGEON: Dr. Chandni Conn. REASON FOR CONSULT: Small bowel obstruction. HISTORY OF PRESENT ILLNESS: Ms. Key is a 47-year-old female with a history of Crohn disease diagnosed when she was in her late teens. The patient's past surgical history is significant and she describes it as following: She was initially thought to have ulcerative colitis when she was younger and then she subsequently underwent a J-pouch with an ileostomy, then ileostomy reversal. She says after that she had done very well for several years; however, she developed problems with her pouch. She eventually had to have her pouch revised and then excised. She describes having many complications from these surgeries. Her surgeries were primarily done by Dr. Mukund Brady in [place] who she says is no longer practicing; however, in the early , given her significant amount of difficulties with the J-pouch and the eventual diagnosis of Crohn disease, it sounds as though her J-pouch was excised and then she ended having an end ileostomy. She says her last 2 surgeries were done at [facility] in [place]. She has not had any surgeries since 2001. She says that she has had intermittent abdominal pain and some bowel obstructions that always resolved with conservative management. She presented to the emergency room yesterday having 2 days of abdominal pain, some vomiting and noticing some blood from her ostomy. She describes having fairly regular ileostomy output, however. This morning, she says that she feels her pain is little bit improved. She also says that she has chronic abdominal pain as well as back pain and she says she is being worked up for sacroiliitis. She also says that she has not vomited for 2 days and she is not feeling nauseated and she would like to try to eat something. She has no other complaints. PAST MEDICAL HISTORY: 1. Crohn disease. 2. Chronic back pain. 3. Anxiety. 4. Depression. 5. DVT. 6. PE. 7. Sacroiliitis. PAST SURGICAL HISTORY: As described above and also includes a cholecystectomy and left oophorectomy. MEDICATIONS: 1. Promethazine. 2. Bupropion. 3. Cholestyramine. 4. Ferrous sulfate. 5. Fluoxetine. 6. Magnesium oxide. 7. Methadone. 8. Zolpidem. ALLERGIES: TYLENOL, BENZOCAINE, FLEXERIL, FENTANYL, IV DYE and P.O. DYE, KETOROLAC, MORPHINE, and PENICILLIN. FAMILY HISTORY: Mother with hyperlipidemia. SOCIAL HISTORY: She is a former smoker. REVIEW OF SYSTEMS: Negative except for as mentioned in the history and physical with abdominal pain, nausea, vomiting. PHYSICAL EXAM: Vital Signs: Temperature is 98.4, pulse rate is 78, respiratory rate is 16, O2 sat is 96% O2 on room air, blood pressure is 135/82. General: This is a well-appearing woman, lying comfortably in bed, in no apparent distress. HEENT: Normocephalic, atraumatic. Respiratory: Clear to auscultation bilaterally. Abdomen: Soft, nontender, nondistended. The majority of her abdomen is covered by tape and ileostomy that is located at the midline of her abdomen. It is pink and patent. There is bilious fluid content in her ostomy bag. Extremities: No edema. DIAGNOSTIC STUDIES/LAB DATA: From 08/26/18, white blood cell count is 12.2, hemoglobin is 12.2, hematocrit 37, platelets are 362. Sodium is 132, potassium is 4.2, chloride is 109, CO2 is 17, BUN is 13, creatinine is 1.2, calcium 7.8. Radiology: CT abdomen and pelvis from 08/25/18. The impression is CT findings are consistent with small bowel obstruction that appears to be localized in the right of the midline lower abdomen with fluid-filled small bowel measuring up to 3.4 cm in diameter. ASSESSMENT AND PLAN: Ms. Key is a 47-year-old female with a history of Crohn disease, complicated past surgical history largely all related to procedures for treatment of her Crohn disease, who presents with abdominal pain , some nausea and vomiting and CT scan findings consistent with a small bowel obstruction. The patient has not vomited in 2 days. She is not feeling nauseated. She does continue to have ileostomy output and she is not distended. She would like to try something to eat. We would recommend slowly advancing her diet to clears and see if she could tolerate this and to continue to advance diet as tolerated. The patient is also having followup with GI regarding some blood from her ostomy. I sent 30 minutes in the coordination of care of this patient, over half of which was face to face with patient. [id number]/[facility] #: [id number] WILLIAM
[2018-08-26] MEDS: Methadone TAB* 10 MG PO SCH ×3 (14:41→19:45)
[2018-08-26] MEDS ORDERED: HYDROmorphone TAB* 2 MG PO PRN (14:49)
[2018-08-26] MEDS ORDERED: D5LR 1000 ML BAG* 1,000 ML IV SCH (15:00)
--- NOTE | 2018-08-26 15:02 | PN ---
Subjective Date of Service: 08/26/18 Interval History: Pt c/o abd pain, but abd nontender on evaluation. N/V resolved. Going for endoscopy today Objective Active Medications: Bupropion HCl (Wellbutrin Xl *) 150 mg PO DAILY [facility]; Protocol Buspirone HCl (Buspar Tab*) 7.5 mg PO BID [facility] Last Admin: 08/25/18 22:05 Dose: Not Given Carisoprodol (Soma Tab*) 350 mg PO Q6H PRN PRN Reason: PAIN Ferrous Sulfate (Ferrous Sulfate Tab*) 325 mg PO BID [facility] Last Admin: 08/25/18 22:05 Dose: Not Given Fluoxetine HCl (Prozac Cap*) 40 mg PO DAILY [facility] Hydromorphone HCl (Dilaudid Tab*) 2 mg PO Q6H PRN PRN Reason: PAIN Dextrose/Lactated Ringer's (D5lr 1000 Ml Bag*) 1,000 mls @ 75 mls/hr IV PER RATE [facility] Magnesium Oxide (Magox 400 Tab*) 800 mg PO BID [facility] Last Admin: 08/25/18 22:05 Dose: Not Given Methadone HCl (Dolophine Tab*) 30 mg PO TID [facility] Last Admin: 08/26/18 14:41 Dose: Not Given Pantoprazole Sodium (Protonix Iv*) 40 mg IV Q12H [facility] Last Admin: 08/26/18 03:37 Dose: 40 mg Prochlorperazine Edisylate (Compazine Inj*) 5 mg IV Q6H PRN PRN Reason: NAUSEA/VOMITING Zolpidem Tartrate (Ambien Tab*) 10 mg PO BEDTIME PRN; Protocol PRN Reason: INSOMNIA Vital Signs - 8 hr 08/26/18 08/26/18 08/26/18 07:19 08:00 10:12 Temperature 98.4 F Pulse Rate 78 Respiratory 16 16 18 Rate Blood Pressure 135/82 (mmHg) O2 Sat by Pulse 96 Oximetry 08/26/18 08/26/18 08/26/18 11:00 11:12 14:08 Temperature 98.4 F Pulse Rate 82 Respiratory 16 14 16 Rate Blood Pressure 132/74 (mmHg) O2 Sat by Pulse 99 Oximetry Oxygen Devices in Use Now: None Appearance: 47 yo F in nAD, AAOx3 Eyes: No Scleral Icterus, PERRLA Ears/Nose/Mouth/Throat: NL Teeth, Lips, Gums, Mucous Membranes Moist Neck: NL Appearance and Movements; NL JVP, Trachea Midline Respiratory: Symmetrical Chest Expansion and Respiratory Effort Cardiovascular: NL Sounds; No Murmurs; No JVD, RRR Abdominal: NL Sounds; No Tenderness; No Distention, No Hepatosplenomegaly, - - ileostomy in place, BS+, nontender Lymphatic: No Cervical Adenopathy Extremities: No Edema, No Clubbing, Cyanosis Skin: No Rash or Ulcers, No Nodules or Sclerosis Neurological: Alert and Oriented x 3, NL Muscle Strength and Tone Result Diagrams: 08/26/18 05:25 08/26/18 05:25 Additional Lab and Data: Lab Results 08/25/18 08/25/18 Range/Units 11:22 11:22 WBC 14.8 H (3.5-10.8) 10^3/ul RBC 5.62 H (4.00-5.40) 10^6/ul Hgb 15.6 (12.0-16.0) g/dl Hct 46 (35-47) % MCV 82 (80-97) fL MCH 28 (27-31) pg MCHC 34 (31-36) g/dl RDW 16 H (10.5-15) % Plt Count Pending MPV Pending Neut % (Auto) Pending Lymph % (Auto) Pending [place] % (Auto) Pending Eos % (Auto) Pending Baso % (Auto) Pending Absolute Neuts (auto) Pending Absolute Lymphs (auto) Pending Absolute Monos (auto) Pending Absolute Eos (auto) Pending Absolute Basos (auto) Pending Absolute Nucleated RBC Pending Nucleated RBC % Pending Sodium Pending Potassium Pending Chloride 90 L (101-111) mmol/L Carbon Dioxide Pending Anion Gap Pending BUN Pending Creatinine Pending Est GFR ( Amer) Pending Est GFR (Non-Af Amer) Pending BUN/Creatinine Ratio Pending Glucose Pending Calcium 9.8 (8.6-10.3) mg/dL Magnesium Pending Total Bilirubin 0.70 (0.2-1.0) mg/dL AST Pending ALT Pending Alkaline Phosphatase Pending Total Protein Pending Albumin 4.6 (3.2-5.2) g/dL Globulin Pending Albumin/Globulin Ratio Pending Assess/Plan/Problems-Billing Assessment: 47 year old female with PMH Crohn's Disease with colectomy and ileostomy and chronic low back pain on methadone, hx DVT and PE admitted for N/ V and hyponatremia noted to have SBO - Patient Problems (1) SBO (small bowel obstruction) Comment: appears to have resolved clinically Pt has no longer N/V. Abd nontender and stoma output present Appreciate surgical consult. will place on clears (2) Hematemesis Comment: resolved. Stool heme neg. For endoscopy with Dr. Mcguire today cont Protonix UV BID for now (3) Crohn disease Comment: - S/p colectomy and ileostomy with malabsorption -appreciate GI consult -awaiting further recommendations (4) CKD (chronic kidney disease) Comment: - Cr 0.98 and GFR of 61 is around baseline -likley due to dehydration, cont mild IVF (5) Chronic abdominal pain Comment: - Restarted methadone - Oral dilaudid and soma. (6) DVT prophylaxis Comment: - SCDs, holding anticoagulation in pt with h/o hematemesis Status and Disposition: inpatient
[2018-08-26] MEDS ORDERED: Midazolam* 1 MG/ML 10 ML VIAL (10 MG) ONE (15:24)
[2018-08-26] MEDS ORDERED: Meperidine Carpuject* 75 MG/ML CARPUJECT SYRINGE IV ONE ×2 (16:00)
[2018-08-26] MEDS: BuPROPion XL* 150 MG TAB.XL PO SCH (16:21)
[2018-08-26] MEDS: FLUoxetine CAP* 20 MG PO SCH (16:22)
[2018-08-26] MEDS: Ferrous Sulfate TAB* 325 MG PO SCH ×2 (16:22→19:46)
[2018-08-26] MEDS: Magnesium Oxide TAB* 400 MG PO SCH ×2 (16:22→19:45)
[2018-08-26] MEDS: busPIRone TAB* 5 MG PO SCH ×2 (16:22→19:46)
--- NOTE | 2018-08-26 22:41 | PRO ---
DATE: 08/26/18 - ROOM #452 REFERRING PHYSICIAN: Constantino Hanson [place] * PROCEDURE: Ileoscopy via stoma using upper endoscope standard to stricture at 12cm, then pediatric reaching 75 to 80 cm. INDICATION: This 47-year-old woman, who has had 7 prior bowel surgeries including a total proctocolectomy (in 1994) and the final surgery being a stoma revision in [place] in 2001, has frequent admissions with weakness, dehydration, hyponatremia, etc. Yesterday was another such admission with a hemoglobin concentrated at 14 and sodium at 120. She has been stable overnight with no further vomiting and just an average amount of stoma output. She has had nothing to eat. There has been no fever. ENDOSCOPIST: Dr. Mcguire. MEDICATIONS: Midazolam 10, meperidine 150 with good tolerance. FINDINGS: She was positioned supine and moderate sedation induced with sequential doses of medication. She was never all that sedated, but appeared comfortable. The abdomen was scaphoid and nontender. Her ileostomy bag was opened at the end and the upper endoscope threaded through to the stoma. It was then inserted gently encountering normal- appearing ileum for about 10 to 12 cm and then there was a ring stricture concentric and symmetric and one could see some ring-like ulceration at the point of maximum narrowing. There appeared to be 2. The scope would not pass. Consideration was given to dilating this, but it was elected to change instead to a pediatric upper scope. Entering the neoterminal ileum again, the stricture was easily passed. At about 17 or 18 cm, another stricture with a similar one-third circumferential ulceration was seen. There were no aphthous lesions in between the 2 rings. The pediatric scope traversed this also and then for at least 35 or 40 cm above the second more proximal stricture, there was absolutely normal mucosa that appeared quite healthy. On slow withdrawal, there were no additional findings. The stoma itself appeared slightly erythematous and granular, but these changes were mild. 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 These would appear consistent with the areas of her biopsy by Dr Álvarez in 2012 where a granuloma was found, but no granulomas when Dr Zacarias biopsied a year or two ago. Whether these are truly the source of her symptoms is difficult to say. It is unclear that there is a practical way to assess higher areas of her gut. With 40 cm of normal mucosa above, it seems unlikely that there is a widespread generalized Crohn's. Dilating the strictures may be feasible, but they do not seem that tight and it is not all clear that her presentations have had a radiographic appearance consistent with dilation just before the narrowings. A trial of immunomodulator could be considered but interpreting results would be very difficult. The likelihood of a major benefit would seem low. [id number]/[facility] #: [id number] [facility] HOSPITALJud
[2018-08-26] MEDS: Carisoprodol TAB* 350 MG PO PRN (23:40)
[2018-08-27] MEDS: Pantoprazole IV* 40 MG IV SCH ×2 (03:51→15:01)
[2018-08-27 06:59] LABS: Hematocrit 35 % (35-47); Hemoglobin 11.6 g/dl (12.0-16.0); Mean Corpuscular HGB Conc 33 g/dl (31-36); Mean Corpuscular Hemoglobin 27 pg (27-31); Mean Corpuscular Volume 84 fL (80-97); Mean Platelet Volume 7.9 fL (7.4-10.4); Platelet Count 317 10^3/ul (150-450); Red Blood Count 4.24 10^6/ul (4.00-5.40); Red Cell Distribution Width 16 % (10.5-15); White Blood Count 12.7 10^3/ul (3.5-10.8)
[2018-08-27 07:22] LABS: Albumin 3.2 g/dL (3.2-5.2); BUN/Creatinine Ratio 9.1 (8-20); Calcium 8.5 mg/dL (8.6-10.3); EGFR Non-African American 53.7 (>60); Globulin 3.2 g/dL (2-4); Indirect Bilirubin 0.3 mg/dL (0.3-1.0); Magnesium 1.6 mg/dL (1.9-2.7); Total Bilirubin 0.4 mg/dL (0.2-1.0); Total Protein 6.4 g/dL (6.4-8.9)
[2018-08-27] MEDS: Methadone TAB* 10 MG PO SCH ×3 (08:20→20:53)
[2018-08-27] MEDS: BuPROPion XL* 150 MG TAB.XL PO SCH (08:20)
[2018-08-27] MEDS: Ferrous Sulfate TAB* 325 MG PO SCH ×2 (08:21→20:55)
[2018-08-27] MEDS: Magnesium Oxide TAB* 400 MG PO SCH ×2 (08:21→20:54)
[2018-08-27] MEDS: FLUoxetine CAP* 20 MG PO SCH (08:21)
[2018-08-27] MEDS: busPIRone TAB* 5 MG PO SCH ×2 (08:22→20:54)
[2018-08-27] MEDS ORDERED: Magnesium Sulfate IV* 3 GM in NS 0.9% 100 ML* 100 ML IVPB ONE (09:17)
[2018-08-27] MEDS ORDERED: Ferric Gluconate IV* 25 MG in NS 0.9% 50 ML* 50 ML IVPB ONE (13:00)
--- NOTE | 2018-08-27 14:52 | PN ---
Progress Note - Progress Note Date of Service: 08/27/18 Note: Surgery Progress Note I saw this patient in the morning, this note reflects that visit S: Patient is feeling much better. She has been eating without nausea, emesis or pain. Her abdominal pain is baseline. Her ileostomy output is back to normal. She feels well and says she would like to go home. O: Vital Signs - 24 hr 08/26/18 08/26/18 08/26/18 18:14 18:15 19:43 Temperature 97.6 F 98.3 F Pulse Rate 76 71 87 Respiratory 16 18 16 Rate Blood Pressure 122/73 122/73 134/73 (mmHg) O2 Sat by Pulse 100 100 100 Oximetry 08/26/18 08/26/18 08/26/18 19:45 20:00 22:19 Temperature Pulse Rate Respiratory 17 16 15 Rate Blood Pressure (mmHg) O2 Sat by Pulse Oximetry 08/26/18 08/26/18 08/27/18 23:40 23:55 02:44 Temperature 97.5 F Pulse Rate 81 Respiratory 16 16 16 Rate Blood Pressure 133/73 (mmHg) O2 Sat by Pulse 99 Oximetry 08/27/18 08/27/18 08/27/18 03:40 07:51 08:00 Temperature 97.9 F 98.5 F Pulse Rate 75 83 Respiratory 16 16 16 Rate Blood Pressure 141/77 145/80 (mmHg) O2 Sat by Pulse 99 98 Oximetry 08/27/18 08/27/18 08/27/18 08:20 11:12 11:15 Temperature 98.5 F Pulse Rate 78 Respiratory 14 16 14 Rate Blood Pressure 126/71 (mmHg) O2 Sat by Pulse 99 Oximetry Intake & Output 08/26/18 08/27/18 08/27/18 22:59 06:59 14:59 Intake Total 940 1345 560 Output Total 0 Balance 940 1345 560 Intake: IV Fluids 545 NS (0.9%) 545 Oral 940 800 560 Output: Urine 0 Other: # Voids 0 Laboratory Results - last 24 hr 08/27/18 08/27/18 06:48 06:48 WBC 12.7 H RBC 4.24 Hgb 11.6 L Hct 35 MCV 84 MCH 27 MCHC 33 RDW 16 H Plt Count 317 MPV 7.9 Sodium 133 L Potassium 4.0 Chloride 107 Carbon Dioxide 19 L Anion Gap 7 BUN 10 Creatinine 1.10 H Est GFR ( Amer) 65.0 Est GFR (Non-Af Amer) 53.7 BUN/Creatinine Ratio 9.1 Glucose 108 H Calcium 8.5 L Magnesium 1.6 L Total Bilirubin 0.40 Direct Bilirubin 0.10 Indirect Bilirubin 0.3 AST 12 L ALT 19 Alkaline Phosphatase 106 H Total Protein 6.4 Albumin 3.2 Globulin 3.2 Albumin/Globulin Ratio 1.0 Abd: soft, NTND, ilesotomy pink, patent with green liquid and air in bag A/P: 47 yo F with Crohns disease and multiple abdominal surgeries, presented with abdominal pain and findings of SBO on CT scan, now symptoms have resolved. - Patient is doing well. She is tolerating food and has excellent ileostomy output and essentially is back to her baseline abdominal pain (she has chronic pain, on pain medications at home). Recommend advancing diet to regular. - Surgery will sign off now. Please feel free to re-consult as needed.
[2018-08-27] MEDS ORDERED: Ferric Gluconate IV* 100 MG in NS 0.9% 100 ML* 100 ML IVPB ONE (15:00)
[2018-08-27] MEDS: Carisoprodol TAB* 350 MG PO PRN (19:54)
[2018-08-27 21:00] VITALS: BP 139/74
--- NOTE | 2018-08-28 03:05 | DS ---
CC: Dr. Silver; Dr. Mcguire; Dr. Conn, General Surgery * DISCHARGE SUMMARY: DATE OF ADMISSION: 08/25/18 DATE OF DISCHARGE: 08/27/18 PRIMARY CARE PROVIDER: Dr. Silver. DISCHARGE DIAGNOSIS: Small bowel obstruction in patient who was noted to have small bowel strictures on endoscopy. SECONDARY DIAGNOSES: 1. History of Crohn's, status post most of the colon resected with resultant ileostomy. 2. History of chronic back pain. 3. Anxiety. 4. Depression. 5. History of deep venous thrombosis and pulmonary embolism. 6. History of sacroiliitis. 7. Status post abdominal surgery for lysis of adhesions. 8. Status post cholecystectomy. 9. Left oophorectomy. 10. Hypomagnesemia, likely due to high stoma output. 11. Iron-deficiency anemia likely due to malabsorption. MEDICATIONS AT DISCHARGE: Unchanged from admission and include: 1. Betamethasone solution 1 application b.i.d. p.r.n. 2. Wellbutrin XL 150 mg daily. 3. BuSpar 7.5 mg b.i.d. 4. Soma 350 mg p.r.n. every 6 hours. 5. Prozac 40 mg daily. 6. Methadone 30 mg 3 times a day. 7. Phenergan 25 mg every 6 hours p.r.n. 8. Ambien CR 12.5 mg at bedtime. 9. Questran 4 g daily p.r.n. high stoma output. 10. Ferrous sulfate 325 mg b.i.d. 11. Mag-Ox 800 mg b.i.d. LABORATORY DATA AND STUDIES PERFORMED DURING THE HOSPITAL STAY: Included on , white blood cell count of 12.7, hemoglobin 11.6, hematocrit of 35, and platelets of 317. Sodium of 133, potassium 4.0, chloride 107, carbon dioxide 19 , BUN 10, creatinine 1.10. Liver function tests were unremarkable apart from small elevation of alkaline phosphatase of 106. Magnesium was 1.6. PROCEDURES PERFORMED DURING THE HOSPITAL STAY: Included on 08/26/18, ileoscopy performed by Dr. Mcguire, which showed terminal ileal strictures, mild with some associated ulceration. Dr. Mcguire thought that it would appear consistent with the areas of biopsy done by Dr. Álvarez in 2013 where a granuloma was found. CT of abdomen and pelvis obtained at admission, impression: "CT findings are consistent with small bowel obstruction that appears to be localized and limited to the right midline lower abdomen with a fluid-filled small bowel measuring up to 3.4 cm in diameter. CONSULTATIONS DURING THE HOSPITAL STAY: Included Dr. Conn from Surgery, Dr. Mcguire from Gastroenterology. HOSPITALIZATION COURSE: Ayesha Key is a 47-year-old female with history of chronic back pain and chronic abdominal pain, who presented to the hospital with throwing up what she reported as blood and some bloody stoma output. Having said that, the patient's stool guaiac was heme-negative. The CT showed small bowel obstruction. She was evaluated by both Dr. Conn from General Surgery and Dr. Mcguire from GI. She had an ileoscopy done by Dr. Mcguire on , which showed 2 strictures of the ileum that could be amenable for dilatation, but they seemed to clinically not be that significant. Please, I would refer you to Dr. Mcguire's procedure report. At this point, it was recommended for the patient to resume diet as tolerated after the procedure and observe. The patient was observed after she was reintroduced on full and then soft diet with good results and no recurrence of nausea, vomiting, or abdominal pain. The patient does have chronic back pain and abdominal pain for which she had been medicated with her methadone as prescribed at home. At this point, the patient is going to be discharged to home, recommendation is to follow up with Dr. Silver in approximately 4 to [address] Mcguire in approximately 1 month. Please also note that the patient was noted to be iron deficient likely due to malabsorption, although she did not have significant anemia. Due to that, an iron infusion was performed prior to the patient's discharge. PHYSICAL EXAM AT THE TIME OF DISCHARGE: Blood pressure of 139/70, heart rate of 74 and regular, respiratory rate 18, oxygen saturation 100% on room air, temperature 98.6. General: The patient is a very pleasant 47-year-old female who is in no acute distress. Alert, awake, and oriented x3. HEENT: Head atraumatic, normocephalic. Eyes: Pupils equal and reactive to light and accommodation. Oropharynx clear. Mucosa moist. Neck: Supple. No JVD. No bruits bilaterally. Cardiovascular: Regular rate and rhythm. No murmur. Respiratory: Clear to auscultation bilaterally. Abdomen: Soft, nontender. Bowel sounds present in all [address] in [address], pink with liquid stool in the bag. Extremities: There is no edema. Pulses +2 bilaterally. No clubbing or cyanosis. Neuro Evaluation: Speech clear. Cranial nerves II through XII grossly intact. Motor strength is 5/5 bilaterally. Please note that this is a short summary of the patient's hospitalization. Please refer to further medical records for details. TIME SPENT: Approximately 35 minutes were spent on this patient's discharge. [id number]/[facility] #: [id number] [facility]
== END 2018-08-27 23:45 | disposition home or self-care (01) | DRG 389 ==
LOC: ED 10:42 → MEDTELE 15:25
PROVIDERS: ADMIT Internal Medicine; ATTEND Internal Medicine
PROC: 0DJD8ZZ Inspection of Lower Intestinal Tract, Via Natural or Artificial Opening Endoscopic (ICD-10-PCS; principal; 2018-08-26)
DX: K56.609 Unspecified intestinal obstruction, unspecified as to partial versus complete obstruction (principal); E87.1 Hypo-osmolality and hyponatremia; K92.0 Hematemesis; K94.01 Colostomy hemorrhage; K90.9 Intestinal malabsorption, unspecified; K63.3 Ulcer of intestine; E87.2 Acidosis; F17.210 Nicotine dependence, cigarettes, uncomplicated; M46.1 Sacroiliitis, not elsewhere classified; D72.829 Elevated white blood cell count, unspecified; Y84.8 Other medical procedures as the cause of abnormal reaction of the patient, or of later complication, without mention of misadventure at the time of the procedure; G89.29 Other chronic pain; D50.9 Iron deficiency anemia, unspecified; F41.9 Anxiety disorder, unspecified; N18.9 Chronic kidney disease, unspecified; F32.9 Major depressive disorder, single episode, unspecified; E83.42 Hypomagnesemia; Z90.49 Acquired absence of other specified parts of digestive tract; Z90.721 Acquired absence of ovaries, unilateral; Z90.89 Acquired absence of other organs; Z86.14 Personal history of Methicillin resistant Staphylococcus aureus infection; Z82.49 Family history of ischemic heart disease and other diseases of the circulatory system; Z83.3 Family history of diabetes mellitus; Z80.8 Family history of malignant neoplasm of other organs or systems; Z86.718 Personal history of other venous thrombosis and embolism; Z86.711 Personal history of pulmonary embolism; Z87.442 Personal history of urinary calculi; Z87.440 Personal history of urinary (tract) infections; Z88.0 Allergy status to penicillin; Z88.5 Allergy status to narcotic agent; Z88.8 Allergy status to other drugs, medicaments and biological substances; Y92.9 Unspecified place or not applicable
CPT/HCPCS: 36415; 74019; 74176; 80048; 80053; 80076; 81003; 81015; 82374; 82533; 82570; 82657; 83605; 83735; 83930; 83935; 84300; 84443; 84484; 85014; 85018; 85025; 85027; 85652; 86140; 87040; 87086; 99156; 99157; 99284; A9270-GY; J0696; J1170; J2175; J2250; J2405; J2916; J3475; J3480; J3490